=== PATIENT | female | born 1950 | race Caucasian/White ===

== ENCOUNTER → 2016-12-16 | Outpatient (CLI) | payer MEDICARE ==
[2016-08-27 09:09] VITALS: BP 134/61
[~2016-12-16] MED LIST: Aspirin PO; CETI10TA22 PO; CLON0.5T3 PO; CYAN10005 PO; CYCL10TA2 PO; DULO30CA2 PO; FLUT16SP NS; FLUT1DIS3 IH; FURO40TA4 PO; GABA-586 PO; HYDR200T PO; INSU100I16 SQ; INSU100I27 SQ; INSU100V13 SQ; LISI-338 PO; LISI10TA PO; METF10002 PO; MONT10TA9 PO; NAPR500T8 PO; NITR100C PO; OMEP40CA5 PO; PANT40TA3 PO; PHEN100T82 PO; POTA20TA4 PO; TIZA4TAB PO
--- NOTE | 2016-12-16 22:56 | PAIN ---
DATE OF SERVICE: 12/16/2016 DIAGNOSES: Lumbar radiculopathy with lumbar spinal stenosis, degenerative disk disease and post-lumbar laminectomy syndrome. HISTORY OF PRESENT ILLNESS: This is a 66-year-old female who returns for followup status post lumbar epidural steroid injection x 1. The patient reports approximately 50% improvement after the first injection with good pain relief in the low back and right lower extremity significantly reduced in the right leg. The patient reports she has been able to perform increased activity with greater ease and comfort feeling almost back to normal until yesterday, she picked up couch and moved it, also lifted her grandchild several times and climbed some steep stairs, which is causing increasing pain in her low back only on the right side in the lateral aspect of the lower lumbar distribution. The patient reports otherwise doing very well. No radiation into the leg at this point, it is an aching dull pain in the low back, rates it as a 4 on a scale of 10 at its worse, she has been sleeping well at night. No new motor or sensory deficits, no new bowel or bladder incontinence or other complaints. PHYSICAL EXAMINATION: VITAL SIGNS: Today, blood pressure is 152/70, pulse 87, respirations 18, temperature 97.9 degrees Fahrenheit, height is 5 feet 2 inches, weight is 191 pounds. GENERAL: The patient is awake, alert, oriented, appropriate, very pleasant demeanor. HEENT: Head shows normocephalic, atraumatic. Extraocular movements are intact, symmetrical. Oral cavity, mucous membranes are moist and pink. Dentition is intact. NECK: Shows anterior throat supple without palpable lymphadenopathy noted. Swallow reflex is symmetrical. The patient shows full rotation and motion of cervical spine without tenderness or difficulty. CHEST: Shows normal on inspection. Breath sounds are clear to auscultation bilaterally. HEART: Shows S1 and S2 clear. ABDOMEN: Obese, but soft, nontender, nondistended. No palpable organomegaly is noted. No rebound or guarding demonstrated. BACK: Shows spine grossly midline. Lumbar paraspinous musculature shows some moderate tenderness with palpation and a well-healed surgical scar once again diffusely tender mostly in the middle and lower distribution of paraspinous muscles, but only very mildly there is some mild tenderness over the posterior superior iliac spine and just medial to this on the right side only, but without significant trigger points. No radiation of pain. The patient shows full rotation and motion of lumbar spine, both laterally greater than 10 degrees right and left as well as extension greater than 10 degrees, forward flexion greater than 45 degrees without difficulty or pain reported. EXTREMITIES: Lower extremities show deep tendon reflexes 1+ in the patellar and tendo calcaneus tendons. Motor exam is strong with 5/5 dorsiflexion, extension, approximately 4/5 quadriceps and hamstring flexion on the right, but 5/5 on the left, but intact bilaterally. PLAN: Options were discussed with the patient. At this time, the patient's old chart was reviewed as her current medication regimen and updated. Current review of systems updated today as well. We will hold on any further injections by her request. She is doing much better and would like to continue some strengthening and stretching exercises at home. We encouraged her to do this as well and see how her progress maintains. Patient was given a prescription for Lidoderm patches as well as Medrol Dosepak with instructions, side effects to be aware of with each, was counseled as to activity level as well as exercise regimen at home and stretching regimen at home and follow up if pain begins to return more into the lower extremity or worse in the low back as it was previously. The patient understands and will follow up as needed. BRO TABARES MD DR: RDE/gagandeep JOB#: [id number] / [id number]
== END | disposition home or self-care (01) ==
LOC: PNCL 10:13
PROVIDERS: ATTEND Anesthesiology
DX: M51.16 Intervertebral disc disorders with radiculopathy, lumbar region (principal); M48.06 Spinal stenosis, lumbar region; M96.1 Postlaminectomy syndrome, not elsewhere classified
CPT/HCPCS: G0463

== ENCOUNTER → 2017-02-16 | Outpatient (CLI) | payer MEDICARE ==
[2016-08-27 09:09] VITALS: BP 134/61
[~2017-02-16] MED LIST changes: +IOHEXOL 180 MG/ML 10 ML VIAL. ONE; +methylPREDNISolone ACETATE 40 MG/ML VIAL. ONE; +methylPREDNISolone ACETATE 80 MG/ML VIAL. ONE
--- NOTE | 2017-02-16 09:52 | PAIN ---
DATE OF SERVICE: 02/16/2017 PROGRESS NOTE FOR PAIN CLINIC DIAGNOSES: Lumbar radiculopathy with lumbar spinal stenosis and lumbar degenerative disk disease with post-lumbar laminectomy syndrome. HISTORY OF PRESENT ILLNESS: The patient is a 66-year-old female who returns for followup status post lumbar epidural steroid injection x 1. The patient reports that she did well with this first injection, about 50% improvement and is doing very well. She was moving some furniture. The pain has begun to return now in the low back, bilateral lower extremities, mostly on the right side, but has a pressure feeling when she lies down, feels like there is a node on her low back and reports it has been worse with some rainy weather, which had recently reached a 9 on a scale of 10 across the low back into the right lower extremity over anterior medial thigh as well as the groin as well as the posterior gluteus and low back on the right side. The patient reports no new motor or sensory deficits, no new bowel or bladder incontinence or other complaints, but still significant pain as noted. PHYSICAL EXAMINATION: VITAL SIGNS: The patient's blood pressure 121/66, pulse 74, respirations 18, temperature 97.8 degrees Fahrenheit, height is 5 feet 2 inches, weighs 190 pounds. GENERAL: The patient is awake, alert, oriented, appropriate, very pleasant demeanor. HEENT: Head shows normocephalic, atraumatic. Extraocular movements are intact and symmetrical. Oral cavity, mucous membranes are moist and pink. Dentition is intact. NECK: Shows anterior throat supple without palpable lymphadenopathy noted. Swallow reflex is symmetrical. CHEST: Shows normal on inspection. Breath sounds are clear to auscultation bilaterally. HEART: Shows S1 and S2 clear. ABDOMEN: Soft, nontender, nondistended. No palpable organomegaly is noted. No rebound or guarding demonstrated. BACK: Shows spine grossly midline. Slight exaggeration of thoracic kyphosis, mild flattening of lumbar lordotic curvature, previously well-healed surgical scars noted. Lumbar paraspinous musculature shows some moderate tenderness and firm with palpation in the mid and low lumbar distribution bilaterally, but only diffusely without radiation. EXTREMITIES: Lower extremities show deep tendon reflexes at 1+ in the patellar and tendo calcaneus tendons. Motor exam is approximately 4 on a scale of 5 on the right and 5 out of 5 on the left with dorsiflexion and extension. Options were discussed with the patient. The patient's old chart was reviewed and her current medication regimen updated. Current review of systems updated today as well. We will proceed with a second lumbar epidural steroid injection today with fluoroscopic guidance. Risks were again discussed including, but not limited to bleeding, infection, possibility of epidural hematoma, subsequent neurologic compromise, dural puncture, headaches, spinal cord and/or nerve damage, side effects of steroid medication, and poor results regarding pain control. The patient understands and wishes to proceed. The patient will return to clinic in approximately 2 weeks for followup, was counseled on return appointment, activity level, and side effects to be aware of. DIAGNOSES: Lumbar radiculopathy, lumbar degenerative disk disease, spinal stenosis, and post-lumbar laminectomy syndrome. PROCEDURES: Lumbar epidural steroid injection in translaminar approach at the L3-L4 level using C-arm fluoroscopic guidance under sterile prep and drape using local anesthetic. MEDICATIONS INJECTED: 120 mg Depo-Medrol plus 10 mL of preservative-free normal saline and 2 mL of Isovue for contrast. CONDITION AT DISCHARGE: Stable. The patient tolerated procedure well, had no complications. BRO TABARES MD DR: RED/gagandeep JOB#: [id number] / [id number]
== END | disposition home or self-care (01) ==
LOC: PNCL 07:48
PROVIDERS: ATTEND Anesthesiology
DX: M51.16 Intervertebral disc disorders with radiculopathy, lumbar region (principal); M48.06 Spinal stenosis, lumbar region; M96.1 Postlaminectomy syndrome, not elsewhere classified; E11.9 Type 2 diabetes mellitus without complications; I10 Essential (primary) hypertension; J45.909 Unspecified asthma, uncomplicated; Z87.39 Personal history of other diseases of the musculoskeletal system and connective tissue; Z90.710 Acquired absence of both cervix and uterus; Z90.49 Acquired absence of other specified parts of digestive tract
CPT/HCPCS: 62323; J1030; J1040

== ENCOUNTER 2017-04-16 08:38 | Emergency (ER) | payer MEDICARE ==
[~2017-04-16] VITALS: Ht 157.5 cm; Wt 77.1 kg
[~2017-04-16 08:38] MED LIST changes: -IOHEXOL 180 MG/ML 10 ML VIAL. ONE; +METF-620 PO; -METF10002 PO; -methylPREDNISolone ACETATE 40 MG/ML VIAL. ONE; -methylPREDNISolone ACETATE 80 MG/ML VIAL. ONE
[2017-04-16 09:03] VITALS: BP 147/70
--- NOTE | 2017-04-16 09:24 | PHYS DOC ---
Past Medical History Past Medical History: Asthma, Depression, Diabetes-Type II, Sciatica Additional Past Medical Histor: CHORNIC BACK PAIN Past Surgical History: Appendectomy, Cholecystectomy, Hysterectomy, Tonsillectomy, Other Additional Past Surgical Histo: bladder sling, cataracts, BILATERAL CARPAL TUNNEL, JAXON IN NECK, BACK SX Alcohol Use: None Drug Use: None Adult General Chief Complaint Chief Complaint: LOWER BACK PAIN OR INJURY [facility] HPI Patient is a 66 year old female presents emergency department stating that she has chronic back pain. She states she takes tramadol at home for the pain and discomfort. She denies any trauma or injury to her back. She states she's had increased pain since yesterday. She states she took her tramadol last night and her naproxen and was unable to sleep. She is complaining of bilateral lower back pain and discomfort. She does state the pain radiates down into her right thigh. Patient has been able to ambulate without difficulty. She denies any numbness or tingling into her lower extremities. She denies any urinary symptoms. Review of Systems Review of Systems Constitutional: Denies fever or chills [] Eyes: Denies change in visual acuity, redness, or eye pain [] HENT: Denies nasal congestion or sore throat [] Respiratory: Denies cough or shortness of breath [] Cardiovascular: No additional information not addressed in HPI [] GI: Denies abdominal pain, nausea, vomiting, bloody stools or diarrhea [] : Denies dysuria or hematuria [] Musculoskeletal: lower back pain denies joint pain [] Integument: Denies rash or skin lesions [] Neurologic: Denies headache, focal weakness or sensory changes [] Endocrine: Denies polyuria or polydipsia [] Allergies Allergies Allergies Coded Allergies Type Severity Reaction Last Updated Verified Iodinated Contrast Media - Oral and Allergy Intermediate 08/27/16 Yes Sulfa (Sulfonamide Antibiotics) Allergy Intermediate 04/26/15 No cephalexin Allergy Intermediate Nausea and Vomiting 11/27/16 Yes morphine Allergy Intermediate 04/26/15 No acetaminophen Allergy Unknown Itching 11/27/16 Yes hydrocodone Allergy Unknown Itching 11/27/16 Yes amoxicillin Adverse Reaction Mild Nausea and Vomiting 04/27/15 No clavulanic acid Adverse Reaction Mild Nausea and Vomiting 04/27/15 No Physical Exam Physical Exam Constitutional: Well developed, well nourished, no acute distress, non-toxic appearance. [] HENT: Normocephalic, atraumatic, bilateral external ears normal, oropharynx moist, no oral exudates, nose normal. [] Eyes: PERRLA, EOMI, conjunctiva normal, no discharge. [] Neck: Normal range of motion, no tenderness, supple, no stridor. [] Cardiovascular:Heart rate regular rhythm, no murmur [] Lungs & Thorax: Bilateral breath sounds clear to auscultation [] Abdomen: Bowel sounds normal, soft, no tenderness, no masses, no pulsatile masses. [] Skin: Warm, dry, no erythema, no rash. [] Back: Bilateral lower back tenderness. No tenderness noted on the lumbar spine, no step-offs, no deformity, no crepitus noted Extremities: No tenderness, no cyanosis, no clubbing, ROM intact, no edema. [] Neurologic: Alert and oriented X 3, normal motor function, normal sensory function, no focal deficits noted. [] Psychologic: Affect normal, judgement normal, mood normal. [] Current Patient Data Vital Signs Vital Signs Date Time Temp Pulse Resp B/P (MAP) Pulse Ox O2 Delivery O2 Flow Rate FiO2 04/16/17 09:03 98.1 91 20 98 Room Air 98.1 EKG EKG [] Radiology/Procedures Radiology/Procedures [] Course & Med Decision Making Course & Med Decision Making Pertinent Labs and Imaging studies reviewed. (See chart for details) Patient states that her friend brought her here to the emergency department today. Patient will be provided with Percocet here in the emergency Department with recommendations to follow-up with her primary care physician or her back doctor for further pain management. Patient states she does have tramadol at home in which she can take for pain and discomfort. Patient will be discharged home in stable condition signs and symptoms to return back to emergency department as been provided. [] Dragon Disclaimer Dragon Disclaimer This electronic medical record was generated, in whole or in part, using a voice recognition dictation system. Departure Departure Impression: Primary Impression: Chronic back pain Disposition: 01 HOME, SELF-CARE Condition: STABLE Referrals: EMELINA HERCULES MD (PCP) Patient Instructions: Back Pain, Adult, [id number] Additional Instructions: You have been treated for your back pain. You have been given Percocet here in the emergency department for pain. Do NOT drive or do anything that requires you to be alert and oriented today as this medication will cause drowsiness. Ice packs to the area of discomfort on 20 minutes and off 20 minutes several times a day If you cannot tolerate ice you may use warm moist heat Continue your home medications for pain. Followup with your primary care provider or back doctor for further pain management. Followup with your primary care provider in 3-5 days Return to emergency department as needed for signs and symptoms that become worse. LINN CALLAWAY APRN April 16, 2017 09:24
[2017-04-16] MEDS ORDERED: oxyCODONE/APAP 5/325 1 TAB TABLET PO ONE (09:30)
== END 2017-04-16 09:38 | disposition home or self-care (01) ==
LOC: ER 08:38
DX: G89.29 Other chronic pain (principal); M54.5 Low back pain; J45.909 Unspecified asthma, uncomplicated; F32.9 Major depressive disorder, single episode, unspecified; E11.9 Type 2 diabetes mellitus without complications; M54.30 Sciatica, unspecified side; Z90.49 Acquired absence of other specified parts of digestive tract; Z90.710 Acquired absence of both cervix and uterus; G56.03 Carpal tunnel syndrome, bilateral upper limbs; Z88.5 Allergy status to narcotic agent; Z88.2 Allergy status to sulfonamides; Z88.1 Allergy status to other antibiotic agents; Z91.041 Radiographic dye allergy status
CPT/HCPCS: 99282

== ENCOUNTER → 2017-04-29 | Outpatient (CLI) | payer MEDICARE ==
[~2017-04-29] VITALS: Ht 154.9 cm; Wt 77.1 kg
[~2017-04-29] MED LIST changes: +IOHEXOL 180 MG/ML 10 ML VIAL. IT ONE; +LIDOCAINE 1% / SOD BICARB 8.4% 20 ML VIAL. IJ ONE
[2017-04-29 12:28] VITALS: BP 149/68
--- NOTE | 2017-04-29 14:38 | RAD ---
Indication chronic back pain Lumbar myelography was explained to the patient. The risks of infection and bleeding were outlined. The possibility of worsening of symptoms was discussed. The possibility of a postprocedure headache necessitating placement of a patch was also discussed. The very small possibility of a seizure was communicated to the patient. The patient after the risks associated with the procedure and wished proceed. The skin was prepped and draped in the routine fashion. Local anesthesia was accomplished with 1% lidocaine. Initially an attempt was made using a midline approach to gain access into the subarachnoid space at L4. This was unsuccessful likely secondary to scar. Subsequently an attempt was made to access the subarachnoid space using a left para midline approach at L3-4. This too was unsuccessful. After these 2 attempts the patient was having some and a break, process, was taken. The patient was then re-prepped with a new tray and draped. Again local anesthesia was accomplished with 1% lidocaine. Using a 20-gauge needle in the midline approach the subarachnoid space was punctured at L2-3. Clear CSF was encountered. 11 cc of Omnipaque 180 was injected. Multiple films were obtained. The patient tolerated the procedure unremarkably. Following the myelogram, post myelogram CT was performed. Axial images were obtained from T11 through the and sacrum reformatted in the coronal and sagittal planes. Disc cuts were obtained at T12-L1, L1-2, L2-3, L3-4 and L4-5. Following the CT I evaluated the patient and she indicated that she was back to her baseline state and having no new issues with her back. 18 spot fluoroscopic images were obtained. Fluoroscopy time associated with the study was 8.1 minutes. Following the myelogram post mammogram CT the patient was watched for approximately 1 hour per protocol and then discharged with appropriate instructions. Prior to the administration of contrast the patient was premedicated with steroids and Benadryl. No adverse effects were seen associated with the intrathecal contrast administration Myelogram findings. There is no determination of the contrast column however there is marked narrowing of the contrast column at L3-4. Disc bulge is seen at L2-3. Spinal fixation cage is noted extending from L4 to S1. Post mammogram CT: Findings. The visualized lung bases appear clear. A significant finding is not seen in the visualized abdomen or retroperitoneum. Spinal fixation cage is noted extending from L4 through S1. The conus appears normal. L1-2 appears unremarkable. At L2-3 there is disc protrusion/herniation to the left of midline impinging on the thecal sac with some associated left foraminal encroachment. There is no significant right foraminal encroachment at L2-3. At L3-4 there is severe spinal stenosis with significant left neural foraminal encroachment and mild right. The etiology for the spinal stenosis is probably multifactorial. Factors contributing to the spinal stenosis may include disc bulging and scarring. There is some ligamentum flavum hypertrophy at this level. At L4-5 there is no significant neural foraminal encroachment. The canal is widely patent. At L5-S1 the thecal sac is widely patent and there is no significant neural foraminal encroachment. IMPRESSION: Lumbar myelogram and post myelogram CT demonstrating spinal fixation extending from L4 through S1. Marked spinal stenosis with associated left greater than right neural foraminal encroachment at L3-4 Left-sided disc protrusion/herniation at L2-3 with associated left neural foraminal encroachment PQRS Compliance Statement: One or more of the following individualized dose reduction techniques were utilized for this examination: 1. Automated exposure control 2. Adjustment of the mA and/or kV according to patient size 3. Use of iterative reconstruction technique
[2017-04-29 14:54] VITALS: BP 130/61
== END | disposition home or self-care (01) ==
LOC: RAD 12:00
PROVIDERS: ATTEND Neurological Surgery
DX: M48.06 Spinal stenosis, lumbar region (principal)
CPT/HCPCS: 72132; 72265

== ENCOUNTER → 2017-05-18 | Outpatient (CLI) | payer MEDICARE ==
[2017-04-29 14:54] VITALS: BP 130/61
[~2017-05-18] MED LIST changes: -IOHEXOL 180 MG/ML 10 ML VIAL. IT ONE; -LIDOCAINE 1% / SOD BICARB 8.4% 20 ML VIAL. IJ ONE
--- NOTE | 2017-05-18 19:51 | KCIC ---
Bilateral digital screening mammograms: Reason for examination: Routine screening. Comparison is made to previous studies dated 12/21/2015 and 06/14/2010. The skin and nipples show no abnormalities. No abnormal axillary lymph nodes are seen. The breast parenchyma shows scattered fibroglandular density. (Breast density: Category B.) There are no dominant masses, suspicious calcifications or architectural distortions. Impression: No evidence of malignancy. Recommend routine screening. BI-RADS Category 2: Benign. "Our facility is accredited by the [employer] Mammography Program." This patient's information has been entered into a reminder system for the patient to be notified with the results of her examination and a target date for the next mammogram. Electronically signed by: Cleo Baca MD (05/18/2017 7:48 PM)
== END | disposition home or self-care (01) ==
LOC: KCIC MAMMO 15:00
PROVIDERS: ATTEND Internal Medicine
DX: Z12.31 Encounter for screening mammogram for malignant neoplasm of breast (principal)
CPT/HCPCS: G0202; 77067

== ENCOUNTER → 2017-06-09 | Outpatient (CLI) | payer MEDICARE ==
[2017-04-29 14:54] VITALS: BP 130/61
[~2017-06-09] MED LIST changes: +METF500T4 PO; +METH-38 PO; +NAPR500T3 PO; +SENN-37 PO; +TRAM-48 PO
--- NOTE | 2017-06-09 15:51 | EKG ---
[facility] [address] [place] [address] Test Date: 2017-06-09 Test Time: 15:53:47 Pat Name: EMILY MONTIEL Department: Room: Gender: F Machine Stitcher: AMANDA : 1950 Requested By: YAHIR LYNN Order Number: [id number] Reading MD: John Paul Gonzalez Measurements Intervals [place] Rate: 69 P: 90 OR: 212 QRS: 61 QRSD: 80 T: 73 QT: 418 QTc: 449 Interpretive Statements SINUS RHYTHM NORMAL ECG RI6.01 Compared to ECG 04/30/2015 07:14:55 No significant changes Electronically Signed On 06-10-2017 11:35:50 CDT by John Paul Gonzalez
[2017-06-09 15:58] LABS: BASO # 0.1 x10^3/uL (0.0-0.2); BASO % 1 % (0-3); EOS % 2 % (0-3); HEMATOCRIT 38.1 % (36.0-47.0); HEMOGLOBIN 12.6 g/dL (12.0-15.5); LYMPH # 2.9 x10^3/uL (1.0-4.8); LYMPH % 31 % (24-48); MEAN CORPUSCULAR HEMOGLOBIN 28 pg (25-35); MEAN CORPUSCULAR HGB CONC 33 g/dL (31-37); MEAN CORPUSCULAR VOLUME 86 fL (79-100); MONO % 8 % (0-9); NEUT % 58 % (31-73); PLATELET COUNT 193 x10^3/uL (140-400); RED BLOOD COUNT 4.44 x10^6/uL (3.50-5.40); RED CELL DISTRIBUTION WIDTH 14.3 % (11.5-14.5); WHITE BLOOD COUNT 9.2 x10^3/uL (4.0-11.0)
[2017-06-09 16:07] LABS: PROTHROMBIN TIME PATIENT 12.3 SEC (11.7-14.0)
[2017-06-09 16:15] LABS: ALBUMIN 4.1 g/dL (3.4-5.0); ALBUMIN/GLOBULIN RATIO 1.2 (1.0-1.7); CALCIUM 9.1 mg/dL (8.5-10.1); CREATININE 0.8 mg/dL (0.6-1.0); GFR 71.5; POTASSIUM 3.7 mmol/L (3.5-5.1); TOTAL BILIRUBIN 0.3 mg/dL (0.2-1.0); TOTAL PROTEIN 7.6 g/dL (6.4-8.2)
== END | disposition home or self-care (01) ==
LOC: SURGPAT 14:45
PROVIDERS: ATTEND Neurological Surgery
DX: Z01.818 Encounter for other preprocedural examination (principal); I10 Essential (primary) hypertension
CPT/HCPCS: 36415; 80053; 83036; 85027; 85610; 85730; 87641; 93005

== ENCOUNTER 2017-06-16 06:42 | Inpatient (IN) | payer MEDICARE ==
[~2017-06-16] VITALS: Ht 157.5 cm; Wt 86.2 kg
[2017-06-16] VITALS (11 sets, daily range): BP systolic 133–154; BP diastolic 70–85
[~2017-06-16 06:42] MED LIST changes: +BACITRACIN 50,000 UNIT in IV NORMAL SALINE 1000ML BAG 1,000 ML IRR ONE; -METH-38 PO; -SENN-37 PO; -TRAM-48 PO; +VANCOMYCIN 1GM IVPB FOR OMNI 250 ML IV PRN
[2017-06-16] MEDS ORDERED: ONDANSETRON PF 4 MG/2 ML VIAL. IV PRN ×2 (07:00→11:45)
[2017-06-16] MEDS ORDERED: LIDOCAINE 1% 1 ML SYRINGE. ID PRN (07:00)
[2017-06-16] MEDS ORDERED: PROCHLORPERAZINE 10 MG/2 ML VIAL. IV PRN (07:00)
[2017-06-16] MEDS ORDERED: fentaNYL PF VIAL 100 MCG/2 ML VIAL IV PRN ×2 (07:00→11:45)
[2017-06-16] MEDS ORDERED: IV RINGERS,LACTATED 1000ML 1,000 ML IV SCH (07:00)
[2017-06-16] MEDS ORDERED: PROPOFOL 20 ML IV ONE (07:02)
[2017-06-16] MEDS ORDERED: MINERAL OIL/PETROLATUM,WHITE OPHTH OINT 3.5GM TUBE. ONE (07:02)
[2017-06-16] MEDS ORDERED: DEXAMETHASONE SOD PHOS 20 MG/5 ML VIAL. ONE (07:02)
[2017-06-16] MEDS ORDERED: DESFLURANE > 120 MINUTES IH ONE (07:02)
[2017-06-16] MEDS ORDERED: MIDAZOLAM HCL/PF 2 MG/2 ML VIAL. ONE (07:02)
[2017-06-16] MEDS ORDERED: PROPOFOL 50 ML IV ONE ×2 (07:02→09:36)
[2017-06-16] MEDS ORDERED: ROCURONIUM 50 MG/5 ML VIAL. ONE (07:02)
[2017-06-16] MEDS ORDERED: 0.9 % SODIUM CHLORIDE 50 ML VIAL. IJ ONE ×2 (07:02→10:58)
[2017-06-16] MEDS ORDERED: REMIFENTANIL 2 MG VIAL. IV ONE (07:02)
[2017-06-16] MEDS ORDERED: LIDOCAINE 2% PF Vial for OR 5 ML VIAL. ONE ×2 (07:02→11:19)
[2017-06-16] MEDS ORDERED: fentaNYL PF VIAL 100 MCG/2 ML VIAL ONE (07:02)
[2017-06-16] MEDS ORDERED: ONDANSETRON PF 4 MG/2 ML VIAL. ONE (07:02)
[2017-06-16] MEDS ORDERED: BUPIVACAINE 0.5% 50 ML VIAL. ONE (07:18)
[2017-06-16] MEDS ORDERED: LIDOCAINE 1%/EPI 1:100,000 20 ML VIAL. ONE (07:18)
[2017-06-16] MEDS ORDERED: PHENYLEPHRINE 10 MG/ML VIAL. ONE (08:11)
[2017-06-16] MEDS ORDERED: GLYCOPYRROLATE 1 MG/5 ML VIAL. ONE (08:11)
[2017-06-16] MEDS ORDERED: HYDROCORTISONE SOD SUCC/PF 100 MG/2 ML VIAL. ONE (08:20)
[2017-06-16] MEDS ORDERED: SEVOFLURANE > 120 MINUTES. IH ONE (09:55)
--- NOTE | 2017-06-16 11:41 | PDOC ---
BRIEF OPERATIVE NOTE Date: Jun 16, 2017 Pre-Op Diagnosis lumbar stenosis, lumbar disk herniation, lumbar radiculopathy Post-Op Diagnosis same Procedure Performed bilateral laminectomy L3-4, left laminectomy L2-3 with discectomy Surgeon Mike Cyanide Pot Hardener none Anesthesiologist Ritchie Anesthesia Type: General Blood Loss 200mL Specimens Obtained disc and decompression Findings prominent stenosis, scar tissue from prior adjacent lumbar surgery Complications none apparent OPerative Note neuromonitoring remained at least baseline throughout the procedure YAHIR LYNN MD Jun 16, 2017 11:41
[2017-06-16] MEDS ORDERED: NALOXONE 0.4 MG/ML VIAL. IV PRN (11:45)
[2017-06-16] MEDS ORDERED: oxyCODONE IR 5 MG TABLET PO PRN (11:45)
[2017-06-16] MEDS ORDERED: MAGNESIUM HYDROXIDE 2,400 MG/30 ML ORAL.SUSP. PO PRN (11:45)
[2017-06-16] MEDS ORDERED: 0.9 % SODIUM CHLORIDE 10 ML DISP.SYRIN. IV PRN (11:45)
[2017-06-16] MEDS ORDERED: CALCIUM CARBONATE 500 MG TAB.CHEW PO PRN (11:45)
[2017-06-16] MEDS ORDERED: diphenhydrAMINE 50 MG/ML VIAL IV PRN (11:45)
[2017-06-16] MEDS ORDERED: diphenhydrAMINE HCL 25 MG CAPSULE PO PRN (11:45)
[2017-06-16] MEDS ORDERED: ZOLPIDEM 5 MG TABLET. PO PRN (11:45)
[2017-06-16] MEDS ORDERED: MAG HYDROX/ALUMINUM HYD/SIMETH 30 ML ORAL.SUSP PO PRN (11:45)
[2017-06-16] MEDS: fentaNYL PF VIAL 100 MCG/2 ML VIAL IV PRN ×4 (12:05→20:55)
[2017-06-16] MEDS ORDERED: MEPERIDINE PF 25 MG/ML VIAL. IV PRN (12:45)
[2017-06-16] MEDS: oxyCODONE IR 5 MG TABLET PO PRN ×2 (14:11→18:16)
[2017-06-16 14:28] LABS: HEMATOCRIT 37.4 % (36.0-47.0); HEMOGLOBIN 12.2 g/dL (12.0-15.5); RED BLOOD COUNT 4.32 x10^6/uL (3.50-5.40); RED CELL DISTRIBUTION WIDTH 14.6 % (11.5-14.5); WHITE BLOOD COUNT 10.5 x10^3/uL (4.0-11.0)
[2017-06-16] MEDS: METHOCARBAMOL 750 MG TABLET PO SCH ×2 (14:48→20:41)
[2017-06-16] MEDS: FERROUS SULFATE 325 MG TABLET. PO SCH (16:26)
[2017-06-16] MEDS: CALCIUM CARB/VIT D3 500/200 TABLET. PO SCH (16:26)
--- NOTE | 2017-06-16 18:22 | OP ---
DATE OF SURGERY: 06/16/2017 SURGEON: Rangel Lynn M.D. [employer] PRODUCTION: None. PREOPERATIVE DIAGNOSES: 1. Lumbar stenosis. 2. Lumbar radiculopathy. 3. Lumbar disk herniation. POSTOPERATIVE DIAGNOSES: 1. Lumbar stenosis. 2. Lumbar radiculopathy. 3. Lumbar disk herniation. PROCEDURES: Bilateral laminectomy of lumbar 3-4 with a left laminectomy at lumbar 2-3 with discectomy. ANESTHESIA: General. COMPLICATIONS: None intraprocedurally. INDICATIONS FOR THE PROCEDURE: The patient is a 66-year-old female who has had a prior lumbar surgery with fusion. She has adjacent level stenosis just cephalad to the prior fusion construct with concordant radiculopathy. There is also a left-sided disk herniation at lumbar 2-3 in the left lateral recess which correlates to her symptoms well. She has been refractory to multiple nonsurgical treatments. Please refer to the patient's chart for additional details. DESCRIPTION OF PROCEDURE: After informed consent was obtained, the patient was brought into the operating room. She was placed under general anesthesia, was placed in prone position on the Judson frame. All pressure points were checked and padded appropriately. Neuro monitoring was instituted and baseline potentials were obtained. The lumbar region was prepped and draped in usual sterile fashion. The patient had a previous midline lumbar incision. Fluoroscopy was utilized to localize the appropriate portion of this incision to reopen and possibly extend over the region of lumbar 2-3 and 4. The superior aspect of the prior vertical incision was opened with a 10 blade scalpel and was extended slightly in a cranial direction to provide exposure to the lumbar 2-3 region. Monopolar electrocautery was utilized to dissect the avascular midline spinous processes of lumbar 2-3 and lumbar 3-4 and bilaterally across the lamina at lumbar 3-4 and leftward across the lamina at lumbar 2-3. The levels were localized/verified with fluoroscopy prior to the initiation of decompression. Bilateral laminectomy was performed at lumbar 3-4. This was performed with a Leksell as well as Kerrison rongeur and a pneumatic drill. The underlying ligament was exposed and gently dissected free from the thecal sac and removed with a Kerrison rongeur. The lateral recesses were decompressed bilaterally at this location. Significant hypertrophied ligament and scar tissue was encountered. This was gently removed from the thecal sac. Upon completion of this, the thecal sac was noted to be very well decompressed. This was verified with direct visualization as well as gentle palpation with a Elmore. A right hemilaminectomy was performed at the inferior aspect of lumber 2 across the lumbar 2-3 junction and the underlying ligament was subsequently removed with a Kerrison rongeur. The neural elements were gently retracted medially and the disk space at lumbar 2-3 was exposed. Annulotomy was performed with an 11 blade scalpel and disk material was removed in a piecemeal fashion from posterolaterally with a pituitary rongeur. Additional disk material was gently teased posterolaterally with a blunt nerve hook and removed with a pituitary rongeur. Upon completion of this, the adjacent neural elements were noted to be very well decompressed. This was verified with direct visualization as well as gentle palpation with a Elmore and a blunt nerve hook. Upon completion of these things, the wound was generously irrigated with antibiotic irrigation. Pristine hemostasis was achieved with FloSeal, cottonoids and some use of bipolar electrocautery. The muscles and fascia were then reapproximated with 0 Vicryl in a simple interrupted fashion. The subcutaneous tissues were reapproximated with 2-0 Vicryl in interrupted inverted fashion and the skin was reapproximated with 4-0 Vicryl in a running subcuticular fashion. Mastisol and Steri-Strips were applied and the wound was dressed with Telfa and Tegaderm. Neuro monitoring potentials remained at least at baseline throughout the duration of the procedure. All needle and sponge counts were correct x 2. The patient was subsequently extubated in the operating room and taken to recovery in stable condition. There were no intraprocedural complications apparent. RANGEL LYNN MD DR: RAY/gagandeep JOB#: [id number] / [id number] RICHARD
[2017-06-16] MEDS: SENNOSIDES/DOCUSATE 8.6/50MG TABLET. PO SCH (20:41)
[2017-06-16] MEDS: DOCUSATE SODIUM 100 MG CAPSULE. PO SCH (20:41)
[2017-06-16] MEDS: clonazePAM 0.5 MG TABLET PO SCH (20:41)
[2017-06-16] MEDS ORDERED: DULoxetine HCL 30 MG CAPSULE.DR PO SCH (21:00)
[2017-06-16] MEDS ORDERED: MONTELUKAST SODIUM 10 MG TABLET. PO SCH (21:00)
[2017-06-16] MEDS ORDERED: traMADol 50 MG TABLET PO PRN (23:30)
[2017-06-16] MEDS: traMADol 50 MG TABLET PO PRN (23:39)
[2017-06-17 02:29] VITALS: BP 113/61
[2017-06-17] MEDS: traMADol 50 MG TABLET PO PRN ×2 (04:46→09:23)
--- NOTE | 2017-06-17 06:20 | ACF ---
Admission Forms Criteria PAIN MANAGEMENT GR Clinical Indications for Admission to Inpatient Care (Place 'X' for any and all applicable criteria): Hospital admission is needed for appropriate care of the patient because of 1 or more of the following are present (1)(2)(3)(4)(5): [ ]I. Severe pain requiring acute inpatient management as indicated by 1 or more of the following (2)(5)(10): [ ]a) Continuous or frequent (eg, every 2 to 4 hours) parenteral analgesics required [A] [ ]b) Necessity (ie, alternative approaches not effective) for analgesic regimen that can only be performed or initiated in inpatient setting [X]II. Pain causing debilitation to the point of inability to function or be supported at any other level of care [ ]III. Severe side effects from pain medications as indicated by ANY ONE of the following (12)(13)(14)(15): [ ]a) Uncontrollable seizures [ ]b) Cardiac arrhythmias of immediate concern [ ]c) Dehydration that is severe or persistent [ ]d) Vomiting that is severe or persistent [ ]e) Altered mental status that is severe or persistent [ ]f) Obstipation with inadequate GI function to maintain nutrition The original [employer] content created by [employer] has been revised. The portions of the content which have been revised are identified through the use of italic text or in bold, and [facility] [employer] has neither reviewed nor approved the modified material. All other unmodified content is copyright [employer]. Please see references footnoted in the original [employer] edition 2016 Admission Criteria Met?: Yes MORALES CALL Jun 17, 2017 06:20
[2017-06-17 06:40] VITALS: BP 124/62
[2017-06-17] MEDS ORDERED: PANTOPRAZOLE 40 MG TABLET.DR. PO SCH (07:30)
[2017-06-17] MEDS ORDERED: metFORMIN 500 MG TABLET PO SCH (08:00)
[2017-06-17] MEDS ORDERED: INSULN ASP PRT/INSULIN ASPART 300 UNITS/3 ML INSULN.PEN. SQ SCH ×2 (08:00→17:00)
[2017-06-17] MEDS: clonazePAM 0.5 MG TABLET PO SCH (08:27)
[2017-06-17] MEDS: DOCUSATE SODIUM 100 MG CAPSULE. PO SCH (08:27)
[2017-06-17] MEDS: CALCIUM CARB/VIT D3 500/200 TABLET. PO SCH (08:27)
[2017-06-17] MEDS: METHOCARBAMOL 750 MG TABLET PO SCH (08:27)
[2017-06-17] MEDS: SENNOSIDES/DOCUSATE 8.6/50MG TABLET. PO SCH (08:27)
[2017-06-17] MEDS: FERROUS SULFATE 325 MG TABLET. PO SCH (08:27)
[2017-06-17] MEDS ORDERED: MULTIVITAMIN with MINERAL TABLET. PO SCH (09:00)
[2017-06-17] MEDS ORDERED: FUROSEMIDE 40 MG TABLET. PO SCH (09:00)
[2017-06-17] MEDS ORDERED: LISINOPRIL 10 MG TABLET PO SCH (09:00)
--- NOTE | 2017-06-17 11:05 | PDOC ---
SUBJECTIVE Subjective Reports resolution of leg pain and numbness. Has ambulated with PT. Had itching with oxycodone. Stated that can tolerate ultram better so switched. Some incisional pain that appears reasonably controlled with present regimen. OBJECTIVE Vital Signs Vital Signs Date Time Temp Pulse Resp B/P (MAP) Pulse Ox O2 Delivery O2 Flow Rate FiO2 06/17/17 09:23 Room Air 06/17/17 08:27 94 150/73 06/17/17 08:10 Room Air 06/17/17 06:40 97.3 92 124/62 (82) 95 Room Air 97.3 06/17/17 05:41 15 Room Air 06/17/17 04:46 18 Room Air 06/17/17 02:29 97.3 89 16 113/61 (78) 98 Room Air 97.3 06/16/17 23:39 18 99 Room Air 06/16/17 23:09 97.5 95 18 133/73 (93) 99 Room Air 97.5 06/16/17 21:27 16 Room Air 06/16/17 20:55 18 96 Room Air 06/16/17 20:00 Room Air 06/16/17 19:20 18 96 Room Air 06/16/17 18:16 Room Air 06/16/17 18:15 97.6 85 18 138/85 (102) 96 Room Air 97.6 06/16/17 17:15 98.0 99 20 149/83 (105) 97 Room Air 98.0 06/16/17 16:45 147/80 (102) 06/16/17 16:15 97.6 100 18 140/71 (94) 97 Room Air 97.6 06/16/17 15:45 139/80 (99) 06/16/17 15:15 144/73 (96) 06/16/17 14:15 98.0 103 18 150/70 (96) 95 Room Air 98.0 06/16/17 14:00 142/71 (94) 06/16/17 14:00 Room Air 06/16/17 13:45 139/77 (97) 06/16/17 13:30 97.3 99 20 144/74 (97) 96 Nasal Cannula 2.0 97.3 06/16/17 13:30 104 154/77 (102) Room Air 06/16/17 13:14 100 12 130/70 99 Nasal Cannula 2 06/16/17 12:59 100 14 119/60 98 Nasal Cannula 2 06/16/17 12:58 Nasal Cannula 2 06/16/17 12:45 101 20 142/63 95 Nasal Cannula 2 06/16/17 12:42 20 92 Room Air 06/16/17 12:30 118 20 118/49 96 Room Air 06/16/17 12:30 102 20 118/49 96 Room Air 06/16/17 12:15 99 06/16/17 12:14 104 20 159/66 94 Room Air 06/16/17 12:05 20 100 Simple Mask 10.0 06/16/17 11:59 108 14 148/52 100 Simple Mask 10 06/16/17 11:44 Mask 10 06/16/17 11:44 98.4 117 12 157/73 98 Simple Mask 10 98.4 I & O Intake and Output 06/17/17 06:59 Intake Total 4110 ml Output Total 3350 ml Balance 760 ml Intake Oral 2760 ml IV Total 1350 ml Output Urine Total 3150 ml Estimated Blood Loss 200 ml PHYSICAL EXAM Physical Exam AAOx4, NAD, SANTANA 5/5, sensation intact LT, reinforced dressing flat, c/d/i ASSESSMENT/PLAN Assessment/Plan POD 1 L3-4 bilateral laminectomy with left L2-3 laminectomy and discectomy -has seen PT -appears to be recovering well thus far -d/c home today if continues to do well Problems: COMMENT Lab Laboratory Tests Test 06/16/17 11:51 06/16/17 14:10 06/16/17 16:43 06/17/17 07:20 Glucose (Fingerstick) 120 mg/dL (70-99) 186 mg/dL (70-99) 137 mg/dL (70-99) White Blood Count 10.5 x10^3/uL (4.0-11.0) Red Blood Count 4.32 x10^6/uL (3.50-5.40) Hemoglobin 12.2 g/dL (12.0-15.5) Hematocrit 37.4 % (36.0-47.0) Mean Corpuscular Volume 87 fL (79-100) Mean Corpuscular Hemoglobin 28 pg (25-35) Mean Corpuscular Hemoglobin Concent 33 g/dL (31-37) Red Cell Distribution Width 14.6 % (11.5-14.5) Platelet Count 199 x10^3/uL (140-400) YAHIR LYNN MD Jun 17, 2017 11:05
[2017-06-17 11:15] VITALS: BP 146/73
[2017-06-17] MEDS ORDERED: METH-38 PO (11:29)
[2017-06-17] MEDS ORDERED: SENN-37 PO (11:29)
[2017-06-17] MEDS ORDERED: TRAM-48 PO (11:30)
--- NOTE | 2017-06-17 17:31 | PATHOLOGY ---
PATHOLOGY REPORT * * * * * * * * FINAL DIAGNOSIS: Segments of fibrocartilaginous, fibroadipose, and skeletal muscle tissue and bone, lumbar decompression and disc: - Degenerative changes of fibrocartilaginous tissue. COMMENT: There is no evidence of an acute inflammatory process or malignancy. (JPM:mgr; 06/17/2017) REPORT ELECTRONICALLY SIGNED BY: Temo Nino M.D. DATE/TIME: 06/17/2017 17:31 * * * * * * * * GROSS PATHOLOGY: Received in formalin labeled "Emily Tan, lumbar decompression and disc" are multiple segments of saenz, rubbery, and gritty tissue admixed with bone. The specimen measures 3.8 x 2.5 x 1.6 cm in aggregate dimensions. The tissue is submitted representatively in cassette A1, following decalcification. (JPM; 06/16/17) INITIAL CPT CODE(S): A; 34686, 10591 Professional services performed [place] [facility] [place] [address] Technical services performed by [facility] at [address] [place] [address]. SPECIMEN(S) RECEIVED: A.Lumbar decompression and disc CLINICAL HISTORY: Lumbar stenosis PATIENT: EMILY TAN /AGE: 9 1950 (Age: 66) PATIENT #: [id number] ALT CASE #: SPECIMEN COLLECTION DATE: 06/16/2017 SPECIMEN RECEIVED DATE: 06/16/2017 [facility] - [address] [place] [address] - PHONE: [phone] * * * END OF REPORT * * *
== END 2017-06-17 12:50 | disposition home or self-care (01) | DRG 520 ==
LOC: SURG 06:42 → 4 SOUTHEST 12:00
PROVIDERS: ADMIT Neurological Surgery; ATTEND Neurological Surgery
PROC: 0SB20ZZ Excision of Lumbar Vertebral Disc, Open Approach (ICD-10-PCS; 2017-06-16)
PROC: 4A11X4G Monitoring of Peripheral Nervous Electrical Activity, Intraoperative, External Approach (ICD-10-PCS; 2017-06-16)
PROC: 00NY0ZZ Release Lumbar Spinal Cord, Open Approach (ICD-10-PCS; principal; 2017-06-16 08:30)
DX: M48.06 Spinal stenosis, lumbar region (principal); M51.16 Intervertebral disc disorders with radiculopathy, lumbar region; Z98.1 Arthrodesis status
CPT/HCPCS: 36415; 76000; 82962; 85027; 88304; 88311; J1100; J1720; J1815; J2001; J2175; J2250; J2405; J2704; J3010; J3370; J3490; J7030; Q0163

== ENCOUNTER → 2017-09-22 | Outpatient (CLI) | payer MEDICARE ==
[~2017-09-22] MED LIST changes: -BACITRACIN 50,000 UNIT in IV NORMAL SALINE 1000ML BAG 1,000 ML IRR ONE; +METH-38 PO; -NAPR500T3 PO; +NAPR500T4 PO; +SENN-37 PO; +TRAM-48 PO; -VANCOMYCIN 1GM IVPB FOR OMNI 250 ML IV PRN
--- NOTE | 2017-09-22 10:52 | RAD ---
Indication syncopal episode. Dizziness. Axial noncontrast images through the head were obtained and are compared to a study 4 years ago. The calvarium appears unremarkable. The visualized paranasal sinuses appear normal. There is no subdural or epidural hematoma. The ventricles and sulci are within normal limits. There is no mass or midline shift. No hemorrhage is seen. IMPRESSION: No acute intracranial finding seen PQRS Compliance Statement: One or more of the following individualized dose reduction techniques were utilized for this examination: 1. Automated exposure control 2. Adjustment of the mA and/or kV according to patient size 3. Use of iterative reconstruction technique
== END | disposition home or self-care (01) ==
LOC: CT 09:36
PROVIDERS: ATTEND Internal Medicine
DX: R55 Syncope and collapse (principal)
CPT/HCPCS: 70450

== ENCOUNTER → 2017-10-01 | Outpatient (CLI) | payer MEDICARE ==
--- NOTE | 2017-10-06 21:32 | EEG ---
DATE OF SERVICE: 10/01/2017 ELECTROENCEPHALOGRAM NUMBER: [id number]. OBJECTIVE: This is a 67-year-old female patient with history of syncopal versus seizure-like episodes. EEG was requested to help rule out seizure. METHODS: Twenty electrodes were applied according to the international 10-20 electrode placement system. EKG monitoring, hyperventilation, intermittent photic stimulation, monopolar and bipolar montages are routinely utilized. The record was obtained on a digital system with video monitoring. FINDINGS: 1. Background: The patient was recorded in the awake and drowsy states. No sleep state was recorded. The overall background amplitude is 5-15 microvolts. A posterior dominant rhythm of 8-12 Hz is observed. 2. Abnormalities: No specific epileptiform discharge or electrographic seizure is seen. No focal or diffuse slowing. Fast activity in the beta frequency is noted. 3. Activation: Hyperventilation was performed with good efforts and normal response. Intermittent photic stimulation was performed with photic driving. No specific epileptiform discharge or electrographic seizure induced by hyperventilation or intermittent photic stimulation. IMPRESSION: This electroencephalogram is a borderline study for the awake and drowsy states. No sleep state was recorded. The faster activity in the beta frequency noted. No focal, lateralizing, specific epileptiform discharge or electrographic seizure is seen. However, even a normal electroencephalogram does not rule out seizure. WILD SUMMERS MD DR: Concha JOB#: [id number] / [id number] RICHARD
== END | disposition home or self-care (01) ==
LOC: RT 07:50
PROVIDERS: ATTEND Psychiatry & Neurology Neurology
DX: F31.89 Other bipolar disorder (principal); R06.4 Hyperventilation; R55 Syncope and collapse; E11.9 Type 2 diabetes mellitus without complications
CPT/HCPCS: 95816

== ENCOUNTER → 2017-11-09 | Outpatient (CLI) | payer MEDICARE ==
--- NOTE | 2017-11-09 17:12 | KCIC ---
MRI Lumbar Spine without contrast History: Low back pain, previous surgeries, bilateral hip pain, burning sensation in recent months Technique: Multiplanar, multi sequential noncontrast MR imaging was performed of the lumbar spine. Comparison: October 08, 2016 Findings: Lumbar vertebral body stature is overall maintained although increased endplate irregularity superiorly and inferiorly of L3. There again has been posterolateral fusion with bilateral pedicle screws at L4-5, again interbody graft at this level. There has been progression of narrowing of the L2-3 and L3-4 intervertebral disc spaces, some variable endplate edema at these levels, no fluid in the intervertebral disc spaces. There is again osseous interbody fusion at L5-S1. AP alignment is overall adequate. Conus terminates at L1-2. There is increased nonspecific edema of the posterior paraspinous soft tissues and subcutaneous fat. There is mild lumbar levoscoliosis. L1-L2: Spinal canal and neural foramina are adequate. There is minimal facet degenerative change. L2-L3: There has been interval posterior decompression. There is new broad protrusion, more eccentric to the far left lateral recess. There is increased indentation upon the ventral thecal sac in the far left lateral recess with moderate to severe left lateral recess stenosis. There is iqws-mf-[id number] narrowing of the far right lateral recess. There is iond-xf-wwibggmo left and moderate right neural foramina compromise. There is facet degenerative change. L3-L4: There has been interval posterior decompression. There is again posterior bulge/protrusion and probable small extrusion extending above the intervertebral disc space overall somewhat less prominent. There is residual mild narrowing of the far lateral recesses greater on the left, central canal now adequate. There is fairly severe narrowing of the left neural foramen by disc osteophyte complex and facet, somewhat greater in interval. There is mild narrowing of the right neural foramen. L4-L5: There again has been posterior decompression. Spinal canal is overall adequate. Posterior margin of the interbody graft again protrudes posterior to the cortical surfaces of the L4 and L5 vertebral bodies by approximately 5 to 6 mm, fairly similar with mild indentation upon the ventral thecal sac in the left paracentral region. There is mild narrowing of the left neural foramen, right neural foramen overall adequate. L5-S1: Spinal canal and neural foramina are overall adequate. Impression: 1. Compared with the September 2016 exam, there has been interval posterior decompression at L3-4 and L2-3. There is new broad bulge/protrusion at the L2-3 level with increased narrowing of the far lateral recesses greater on the left. There is residual mild narrowing of the far lateral recesses greater on the left at L3-4 although previously much greater degree of spinal stenosis present at this level. Posterior margin of the interbody graft at L4-5 again protrudes posterior to the cortical surfaces of the L4 and L5 vertebral bodies with mild indentation upon the ventral thecal sac. There has been progression of L2-3 and L3-4 intervertebral disc space narrowing with new endplate edema at these levels likely reactive/degenerative in etiology, also increased endplate irregularity of L3. There is fairly severe narrowing of the left L3-4 neural foramen, lesser degree of gffk-ch-joxdgcom narrowing bilaterally at L2-3. Electronically signed by: Gamaliel Espinoza MD (11/09/2017 5:08 PM) [facility]
== END | disposition home or self-care (01) ==
LOC: KCIC MRI 16:09
PROVIDERS: ATTEND Neurological Surgery
DX: M48.061 Spinal stenosis, lumbar region without neurogenic claudication (principal)
CPT/HCPCS: 72148

== ENCOUNTER → 2017-11-10 | Outpatient (CLI) | payer MEDICARE ==
--- NOTE | 2017-11-10 10:15 | KCIC ---
2 views right and left hip and AP pelvis 11/10/2017 CLINICAL INDICATION: Bilateral hip pain. COMPARISON: None. FINDINGS: Lumbosacral spinal fixation with vertical rods with extension to the sacrum on the right. No acute fracture or traumatic malalignment of the pelvis or bilateral hips. Femoral heads are round without collapse. Joint spaces are maintained. No symphysis pubis diastases. Sacroiliac articulations are grossly maintained, however somewhat limited due to overlying bowel contents. IMPRESSION: No acute osseous abnormality. Electronically signed by: Quentin Caldera MD (11/10/2017 10:12 AM) [id number]
== END | disposition home or self-care (01) ==
LOC: KCIC 09:32
PROVIDERS: ATTEND Anesthesiology
DX: M16.0 Bilateral primary osteoarthritis of hip (principal); I10 Essential (primary) hypertension; F41.9 Anxiety disorder, unspecified; F32.9 Major depressive disorder, single episode, unspecified; E11.9 Type 2 diabetes mellitus without complications; F17.200 Nicotine dependence, unspecified, uncomplicated; D64.9 Anemia, unspecified; Z86.69 Personal history of other diseases of the nervous system and sense organs; Z98.41 Cataract extraction status, right eye; Z98.42 Cataract extraction status, left eye; Z90.49 Acquired absence of other specified parts of digestive tract; Z90.710 Acquired absence of both cervix and uterus; Z87.440 Personal history of urinary (tract) infections; Z87.39 Personal history of other diseases of the musculoskeletal system and connective tissue; Z86.39 Personal history of other endocrine, nutritional and metabolic disease; Z88.2 Allergy status to sulfonamides; Z88.8 Allergy status to other drugs, medicaments and biological substances; Z88.6 Allergy status to analgesic agent; Z88.1 Allergy status to other antibiotic agents; Z91.041 Radiographic dye allergy status
CPT/HCPCS: 73521; 99212

== ENCOUNTER → 2017-11-17 | Outpatient (CLI) | payer MEDICARE ==
[~2017-11-17] MED LIST changes: +IOHEXOL 180 MG/ML 10 ML VIAL. ONE; +methylPREDNISolone ACETATE 40 MG/ML VIAL. ONE; +methylPREDNISolone ACETATE 80 MG/ML VIAL. ONE
--- NOTE | 2017-11-17 08:27 | PAIN ---
DATE OF SERVICE: 11/17/2017 DIAGNOSES: Lumbar radiculopathy with lumbar spinal stenosis, lumbar degenerative disk disease and post-laminectomy syndrome. HISTORY OF PRESENT ILLNESS: The patient is a 67-year-old female who returns for followup status post initial evaluation and Medrol Dosepak, was about 50% better after the Dosepak with her hips as well as her low back. The patient reports the pain is returning slightly, but still fairly well controlled. The patient reports pain across the low back into the posterior gluteus, more on the left than the right, now radiating, constant, severe, unbearable, dull, sharp, aching, much better over the past few days, though she reports she had 0 pain about 3 days ago. Prior to that, about 50% improvement and now is about 50% improved. The patient reports her pain a 10 on a scale 10 at its worst, 9 on average, 8 at its least and is a 8 today. The patient reports no new motor or sensory deficits, no new bowel or bladder incontinence or other complaints. She was sleeping better after the Medrol Dosepak and does not awaken her from sleep currently. PHYSICAL EXAMINATION: VITAL SIGNS: The patient's blood pressure 133/79, pulse 83, respirations 18, temperature 98.1 degrees Fahrenheit. Height is 5 feet 2 inches, weighs 180 pounds. GENERAL: She is awake, alert, oriented, appropriate, very pleasant demeanor. HEENT: Head shows normocephalic, atraumatic. Extraocular muscles are intact and symmetrical. Oral cavity: Mucous membranes moist and pink. Dentition is intact. NECK: Shows anterior throat supple without palpable lymphadenopathy noted. Swallow reflex symmetrical. CHEST: Shows normal with inspection, with palpation shows moderate tenderness, but symmetrical paraspinous musculature Moderately diffuse well-healed surgical scars noted in the midline with some tattooing as well. The patient's lower extremities show deep tendon reflexes at 1+ in the patellar and tendo calcaneus tendons are equal. Motor exam is strong with 5/5 dorsiflexion, extension, quadriceps and hamstring flexion and equal as well bilaterally. The patient's peripheral pulses are 1+ posterior tibial. No peripheral edema is noted. Options were discussed with the patient. The patient's old chart was reviewed. Her current medication regimen updated. Current review of systems updated today as well. We will proceed with a lumbar epidural steroid injection today with fluoroscopic guidance. Risks were again discussed including, but not limited to bleeding, infection, possibility of epidural hematoma, subsequent neurological compromise, dural puncture, headaches, spinal cord and/or nerve damage, side effects of steroid medication and poor results regarding pain control. The patient understands and wished to proceed. The patient will return to clinic in approximately 2 weeks for followup. She was counseled on return appointment, activity level and side effects to be aware of. DIAGNOSES: Lumbar radiculopathy with lumbar spinal stenosis, degenerative disk disease and post-lumbar laminectomy syndrome. PROCEDURES: Lumbar epidural steroid injection, translaminar approach at the L2-L3 level using C-arm fluoroscopic guidance, under sterile prep and drape using local anesthetic. MEDICATION INJECTED: A total of 120 mg Depo-Medrol, plus 10 mL of preservative-free normal saline, 2 mL Isovue for contrast. CONDITION AT DISCHARGE: Stable. The patient tolerated procedure well, had no complications. BRO TABARES MD DR: RED/gagandeep JOB#: [id number] / [id number]
== END | disposition home or self-care (01) ==
LOC: PNCL 07:45
PROVIDERS: ATTEND Anesthesiology
DX: M51.16 Intervertebral disc disorders with radiculopathy, lumbar region (principal); M48.061 Spinal stenosis, lumbar region without neurogenic claudication; M96.1 Postlaminectomy syndrome, not elsewhere classified; J45.909 Unspecified asthma, uncomplicated; F41.9 Anxiety disorder, unspecified; F32.9 Major depressive disorder, single episode, unspecified; D64.9 Anemia, unspecified; Z86.69 Personal history of other diseases of the nervous system and sense organs; Z87.01 Personal history of pneumonia (recurrent); Z90.710 Acquired absence of both cervix and uterus; Z87.440 Personal history of urinary (tract) infections; Z90.49 Acquired absence of other specified parts of digestive tract; Z98.890 Other specified postprocedural states; Z87.39 Personal history of other diseases of the musculoskeletal system and connective tissue; Z98.41 Cataract extraction status, right eye; Z98.42 Cataract extraction status, left eye; Z88.2 Allergy status to sulfonamides; Z88.1 Allergy status to other antibiotic agents; Z91.041 Radiographic dye allergy status; Z86.39 Personal history of other endocrine, nutritional and metabolic disease
CPT/HCPCS: 62323; J1030; J1040

== ENCOUNTER → 2017-12-01 | Outpatient (CLI) | payer MEDICARE ==
[~2017-12-01] MED LIST changes: -Aspirin PO; -CETI10TA22 PO; -CLON0.5T3 PO; -CYAN10005 PO; -CYCL10TA2 PO; -DULO30CA2 PO; -FLUT16SP NS; -FLUT1DIS3 IH; -FURO40TA4 PO; -GABA-586 PO; -HYDR200T PO; -INSU100I16 SQ; -INSU100I27 SQ; -INSU100V13 SQ; +IOHEXOL 180 MG/ML 10 ML VIAL.; -IOHEXOL 180 MG/ML 10 ML VIAL. ONE; -LISI-338 PO; -LISI10TA PO; -METF-620 PO; -METF500T4 PO; -METH-38 PO; -MONT10TA9 PO; -NAPR500T4 PO; -NAPR500T8 PO; -NITR100C PO; -OMEP40CA5 PO; -PANT40TA3 PO; -PHEN100T82 PO; -POTA20TA4 PO; -SENN-37 PO; -TIZA4TAB PO; -TRAM-48 PO; +methylPREDNISolone ACETATE 40 MG/ML VIAL.; -methylPREDNISolone ACETATE 40 MG/ML VIAL. ONE; +methylPREDNISolone ACETATE 80 MG/ML VIAL.; -methylPREDNISolone ACETATE 80 MG/ML VIAL. ONE
== END | disposition home or self-care (01) ==
LOC: PNCL 07:38
DX: M51.16 Intervertebral disc disorders with radiculopathy, lumbar region (principal); M96.1 Postlaminectomy syndrome, not elsewhere classified; M48.061 Spinal stenosis, lumbar region without neurogenic claudication; F41.9 Anxiety disorder, unspecified; F32.9 Major depressive disorder, single episode, unspecified; F17.200 Nicotine dependence, unspecified, uncomplicated; D64.9 Anemia, unspecified; J45.909 Unspecified asthma, uncomplicated; Z88.2 Allergy status to sulfonamides; Z98.41 Cataract extraction status, right eye; Z98.42 Cataract extraction status, left eye; Z98.890 Other specified postprocedural states; Z86.69 Personal history of other diseases of the nervous system and sense organs; Z90.49 Acquired absence of other specified parts of digestive tract; Z90.710 Acquired absence of both cervix and uterus; Z88.6 Allergy status to analgesic agent; Z88.1 Allergy status to other antibiotic agents; Z91.041 Radiographic dye allergy status
CPT/HCPCS: 62323; J1030; J1040

== ENCOUNTER 2018-01-01 22:17 | Inpatient (IN) | payer MEDICARE ==
[2018-01-01 22:54] LABS: BILIRUBIN,URINE NEGATIVE (NEG); CLARITY,URINE CLOUDY; COLOR,URINE YELLOW; GLUCOSE,URINE NEGATIVE (NEG); NITRITE,URINE POSITIVE (NEG); PH,URINE 5.5; PROTEIN,URINE 100 mg/dL (NEG-TRACE); UROBILINOGEN,URINE 0.2 mg/dL (0.2 mg/dL)
[2018-01-01 23:10] LABS: BACTERIA,URINE MANY /HPF (0-FEW); RBC,URINE 20-40 /HPF (0-2); SQUAMOUS EPITHELIAL CELL,UR OCC /LPF; WBC,URINE TNTC /HPF (0-4)
[2018-01-01 23:11] LABS: INFLUENZA A PATIENT NEGATIVE (NEGATIVE); INFLUENZA B PATIENT NEGATIVE (NEGATIVE); OBC FLU VALID
[2018-01-01] MEDS: KETOROLAC 30 MG/ML INJ. IV (23:18)
[2018-01-01] MEDS: diazePAM 5 MG TABLET PO (23:19)
[2018-01-01] MEDS: oxyCODONE/APAP 5/325 1 TAB TABLET PO (23:19)
[2018-01-01] MEDS: IV NORMAL SALINE 1000ML BAG 1,000 ML IV (23:20)
[2018-01-01 23:38] LABS: BASO # 0.1 x10^3/uL (0.0-0.2); BASO % 0 % (0-3); EOS # 0.1 x10^3/uL (0.0-0.7); EOS % 1 % (0-3); HEMATOCRIT 35.9 % (36.0-47.0); HEMOGLOBIN 11.8 g/dL (12.0-15.5); LYMPH # 1.4 x10^3/uL (1.0-4.8); LYMPH % 9 % (24-48); MEAN CORPUSCULAR HEMOGLOBIN 28 pg (25-35); MEAN CORPUSCULAR HGB CONC 33 g/dL (31-37); MEAN CORPUSCULAR VOLUME 84 fL (79-100); MONO % 7 % (0-9); NEUT % 83 % (31-73); PLATELET COUNT 212 x10^3/uL (140-400); RED BLOOD COUNT 4.26 x10^6/uL (3.50-5.40); RED CELL DISTRIBUTION WIDTH 14.8 % (11.5-14.5); WHITE BLOOD COUNT 15.6 x10^3/uL (4.0-11.0)
[2018-01-01 23:42] LABS: ADD MAN DIFF? YES
[2018-01-01 23:49] LABS: ANION GAP 11 (6-14); BLOOD UREA NITROGEN 21 mg/dL (7-20); BUN/CREATININE RATIO 23 (6-20); CALCIUM 9.9 mg/dL (8.5-10.1); CARBON DIOXIDE 28 mmol/L (21-32); CHLORIDE 98 mmol/L (98-107); CREATININE 0.9 mg/dL (0.6-1.0); GFR 62.3; GLUCOSE 133 mg/dL (70-99); POTASSIUM 4.4 mmol/L (3.5-5.1); SODIUM 137 mmol/L (136-145)
[2018-01-01 23:50] LABS: C-REACTIVE PROTEIN 51.1 mg/L (0-3.3)
[2018-01-01 23:56] LABS: LACTIC ACID 2.5 mmol/L (0.4-2.0)
[2018-01-01 23:57] LABS: TROPONINI < 0.017 ng/mL (0.000-0.055)
[2018-01-02] MEDS ORDERED: fentaNYL PF VIAL 100 MCG/2 ML VIAL IV
[2018-01-02] MEDS ORDERED: levOFLOXacin PER PHARMACY. MC
[2018-01-02] MEDS ORDERED: ONDANSETRON PF 4 MG/2 ML VIAL. IV
[2018-01-02 00:03] LABS: ALBUMIN 3.5 g/dL (3.4-5.0); ALK PHOS 85 U/L (46-116); ALT (SGPT) 25 U/L (14-59); AST (SGOT) 20 U/L (15-37); CREATINE KINASE 90 U/L (26-192); MAGNESIUM 1.6 mg/dL (1.8-2.4); TOTAL BILIRUBIN 0.6 mg/dL (0.2-1.0); TOTAL PROTEIN 6.9 g/dL (6.4-8.2)
[2018-01-02 00:17] LABS: % BANDS 6 % (0-9); % LYMPHS 7 % (24-48); % MONOS 4 % (0-10); % SEGS 83 % (35-66)
[2018-01-02 00:18] LABS: PLT ESTIMATE ADEQUATE (ADEQUATE); TOXIC VACUOLATION SLIGHT
[2018-01-02] MEDS: MAGNESIUM OXIDE 400 MG TABLET PO (00:24)
[2018-01-02 01:23] LABS: SEDIMENTATION RATE 42 (0-25)
[2018-01-02 04:24] LABS: ADD MAN DIFF? NO
[2018-01-02 04:28] LABS: BASO # 0.1 x10^3/uL (0.0-0.2); BASO % 0 % (0-3); EOS # 0.1 x10^3/uL (0.0-0.7); EOS % 1 % (0-3); HEMOGLOBIN 10.7 g/dL (12.0-15.5); LYMPH # 1.4 x10^3/uL (1.0-4.8); LYMPH % 11 % (24-48); MEAN CORPUSCULAR HEMOGLOBIN 28 pg (25-35); MEAN CORPUSCULAR HGB CONC 33 g/dL (31-37); MEAN CORPUSCULAR VOLUME 85 fL (79-100); MONO # 0.8 x10^3/uL (0.0-1.1); MONO % 6 % (0-9); NEUT # 10.7 x10^3uL (1.8-7.7); NEUT % 82 % (31-73); PLATELET COUNT 176 x10^3/uL (140-400); RED BLOOD COUNT 3.91 x10^6/uL (3.50-5.40); WHITE BLOOD COUNT 13.1 x10^3/uL (4.0-11.0)
[2018-01-02 04:46] LABS: ANION GAP 11 (6-14); BLOOD UREA NITROGEN 19 mg/dL (7-20); CALCIUM 8.6 mg/dL (8.5-10.1); CARBON DIOXIDE 24 mmol/L (21-32); CHLORIDE 102 mmol/L (98-107); CREATININE 0.9 mg/dL (0.6-1.0); GFR 62.3; GLUCOSE 139 mg/dL (70-99); POTASSIUM 4.1 mmol/L (3.5-5.1); SODIUM 137 mmol/L (136-145)
[2018-01-02 04:54] LABS: LACTIC ACID 1.6 mmol/L (0.4-2.0)
[2018-01-02] MEDS: traMADol 50 MG TABLET PO ×3 (05:41→23:27)
[2018-01-02 09:26] LABS: POC GLUCOSE 115 mg/dL (70-99)
[2018-01-02] MEDS: fentaNYL PF VIAL 100 MCG/2 ML VIAL IV ×3 (10:23→23:28)
[2018-01-02] MEDS: methylPREDNISolone ACETATE 40 MG/ML VIAL. INJ (11:15)
[2018-01-02] MEDS: BUPIVACAINE MPF 0.25% 10 ML VIAL. IJ (11:15)
[2018-01-02] MEDS: ASCORBIC ACID 500 MG TABLET PO ×2 (11:30→20:25)
[2018-01-02] MEDS ORDERED: traMADol 50 MG TABLET PO (11:45)
[2018-01-02] MEDS ORDERED: DEXTROSE 50% 25 GM / 50ML DISP.SYRIN. IV (11:45)
[2018-01-02 11:50] LABS: POC GLUCOSE 117 mg/dL (70-99)
[2018-01-02] MEDS: INSULIN ASPART 300 UNITS/3 ML INSULN.PEN SQ ×2 (12:00→17:00)
[2018-01-02] MEDS: clonazePAM 0.5 MG TABLET PO ×2 (12:30→20:24)
[2018-01-02] MEDS: PANTOPRAZOLE 40 MG TABLET.DR. PO (12:30)
[2018-01-02] MEDS: HYDROXYCHLOROQUINE 200 MG TABLET PO ×2 (12:30→20:24)
[2018-01-02] MEDS: SENNOSIDES/DOCUSATE 8.6/50MG TABLET. PO ×2 (12:30→20:25)
[2018-01-02] MEDS: IV NORMAL SALINE 1000ML BAG 1,000 ML IV ×3 (12:34→22:27)
[2018-01-02] MEDS: ONDANSETRON PF 4 MG/2 ML VIAL. IV ×2 (12:34→22:24)
[2018-01-02 16:53] LABS: POC GLUCOSE 129 mg/dL (70-99)
[2018-01-02] MEDS: LISINOPRIL 10 MG TABLET PO (16:54)
[2018-01-02] MEDS: metFORMIN 500 MG TABLET PO (17:13)
[2018-01-02] MEDS: ENOXAPARIN 40 MG/0.4 ML SYRINGE. SQ (17:13)
[2018-01-02] MEDS: INSULN ASP PRT/INSULIN ASPART 300 UNITS/3 ML INSULN.PEN. SQ (17:18)
[2018-01-02] MEDS: LACTOBACILLUS RHAMNOSUS GG 1 CAPSULE. PO (20:23)
[2018-01-02] MEDS: DULoxetine HCL 30 MG CAPSULE.DR PO (20:24)
[2018-01-02] MEDS: MONTELUKAST SODIUM 10 MG TABLET. PO (20:24)
[2018-01-02 20:32] LABS: POC GLUCOSE 123 mg/dL (70-99)
[2018-01-03] MEDS: fentaNYL PF VIAL 100 MCG/2 ML VIAL IV ×3 (03:36→20:42)
[2018-01-03] MEDS: NAPROXEN 500 MG TABLET PO (03:36)
[2018-01-03 05:02] LABS: ADD MAN DIFF? NO
[2018-01-03 05:22] LABS: BASO % 0 % (0-3); EOS % 0 % (0-3); HEMATOCRIT 33.5 % (36.0-47.0); HEMOGLOBIN 10.9 g/dL (12.0-15.5); LYMPH # 0.8 x10^3/uL (1.0-4.8); LYMPH % 10 % (24-48); MEAN CORPUSCULAR HEMOGLOBIN 28 pg (25-35); MEAN CORPUSCULAR HGB CONC 33 g/dL (31-37); MEAN CORPUSCULAR VOLUME 87 fL (79-100); MONO # 0.6 x10^3/uL (0.0-1.1); MONO % 7 % (0-9); NEUT # 7.3 x10^3uL (1.8-7.7); NEUT % 84 % (31-73); PLATELET COUNT 161 x10^3/uL (140-400); RED BLOOD COUNT 3.87 x10^6/uL (3.50-5.40); RED CELL DISTRIBUTION WIDTH 15.2 % (11.5-14.5); WHITE BLOOD COUNT 8.7 x10^3/uL (4.0-11.0)
[2018-01-03 05:52] LABS: ANION GAP 13 (6-14); BLOOD UREA NITROGEN 13 mg/dL (7-20); CALCIUM 8.7 mg/dL (8.5-10.1); CARBON DIOXIDE 20 mmol/L (21-32); CHLORIDE 102 mmol/L (98-107); CHOLESTEROL 123 mg/dL (0-200); CHOLESTEROL/HDL RATIO 1.8; CREATININE 0.5 mg/dL (0.6-1.0); GFR 122.7; GLUCOSE 112 mg/dL (70-99); HDLC 69 mg/dL (40-60); LDLC 44 mg/dL (0-100); NON-HDL CHOLESTEROL 54 mg/dL (0-129); POTASSIUM 4.5 mmol/L (3.5-5.1); SODIUM 135 mmol/L (136-145); TRIGLYCERIDES 48 mg/dL (0-150); VLDLC 10 mg/dL (0-40)
[2018-01-03 06:24] LABS: THYROID STIM HORMONE (TSH) 0.981 uIU/mL (0.358-3.74)
[2018-01-03 07:59] LABS: POC GLUCOSE 108 mg/dL (70-99)
[2018-01-03] MEDS: INSULN ASP PRT/INSULIN ASPART 300 UNITS/3 ML INSULN.PEN. SQ ×2 (08:00→17:26)
[2018-01-03] MEDS: INSULIN ASPART 300 UNITS/3 ML INSULN.PEN SQ ×3 (08:00→17:26)
[2018-01-03] MEDS: metFORMIN 500 MG TABLET PO ×2 (08:31→17:13)
[2018-01-03] MEDS: LACTOBACILLUS RHAMNOSUS GG 1 CAPSULE. PO ×2 (08:32→20:42)
[2018-01-03] MEDS: clonazePAM 0.5 MG TABLET PO ×2 (08:32→20:43)
[2018-01-03] MEDS: traMADol 50 MG TABLET PO (08:32)
[2018-01-03] MEDS: ASCORBIC ACID 500 MG TABLET PO ×2 (08:32→20:43)
[2018-01-03] MEDS: SENNOSIDES/DOCUSATE 8.6/50MG TABLET. PO ×2 (08:32→20:43)
[2018-01-03] MEDS: HYDROXYCHLOROQUINE 200 MG TABLET PO ×2 (08:32→20:43)
[2018-01-03] MEDS: PANTOPRAZOLE 40 MG TABLET.DR. PO (08:32)
[2018-01-03] MEDS: LISINOPRIL 10 MG TABLET PO (08:33)
[2018-01-03] MEDS: IV NORMAL SALINE 1000ML BAG 1,000 ML IV (08:55)
[2018-01-03 11:38] LABS: POC GLUCOSE 147 mg/dL (70-99)
[2018-01-03 16:15] LABS: HEMOGLOBIN A1C 5.7 % (4.8-5.6)
[2018-01-03] MEDS: ENOXAPARIN 40 MG/0.4 ML SYRINGE. SQ (16:28)
[2018-01-03 16:46] LABS: POC GLUCOSE 151 mg/dL (70-99)
[2018-01-03] MEDS: MONTELUKAST SODIUM 10 MG TABLET. PO (20:43)
[2018-01-03] MEDS: DULoxetine HCL 30 MG CAPSULE.DR PO (20:43)
[2018-01-03 20:57] LABS: POC GLUCOSE 114 mg/dL (70-99)
[2018-01-03] MEDS: METHOCARBAMOL 750 MG TABLET PO (22:18)
[2018-01-04] MEDS: fentaNYL PF VIAL 100 MCG/2 ML VIAL IV ×3 (02:58→11:23)
[2018-01-04 07:36] LABS: POC GLUCOSE 120 mg/dL (70-99)
[2018-01-04] MEDS: INSULIN ASPART 300 UNITS/3 ML INSULN.PEN SQ ×2 (08:00→12:00)
[2018-01-04] MEDS: INSULN ASP PRT/INSULIN ASPART 300 UNITS/3 ML INSULN.PEN. SQ (08:00)
[2018-01-04] MEDS: PANTOPRAZOLE 40 MG TABLET.DR. PO (08:27)
[2018-01-04] MEDS: ASCORBIC ACID 500 MG TABLET PO (08:27)
[2018-01-04] MEDS: NAPROXEN 500 MG TABLET PO (08:28)
[2018-01-04] MEDS: metFORMIN 500 MG TABLET PO (08:28)
[2018-01-04] MEDS: HYDROXYCHLOROQUINE 200 MG TABLET PO (08:29)
[2018-01-04] MEDS: LACTOBACILLUS RHAMNOSUS GG 1 CAPSULE. PO (08:30)
[2018-01-04] MEDS: clonazePAM 0.5 MG TABLET PO (08:30)
[2018-01-04] MEDS: LISINOPRIL 10 MG TABLET PO (08:30)
[2018-01-04] MEDS: traMADol 50 MG TABLET PO (08:30)
[2018-01-04] MEDS: SENNOSIDES/DOCUSATE 8.6/50MG TABLET. PO (08:31)
[2018-01-04] MEDS ORDERED: methylPREDNISolone ACETATE 40 MG/ML VIAL. IM (10:00)
[2018-01-04 11:26] LABS: POC GLUCOSE 102 mg/dL (70-99)
[2018-01-04] MEDS: methylPREDNISolone ACETATE 40 MG/ML VIAL. INJ (13:00)
[2018-01-04] MEDS: BUPIVACAINE MPF 0.25% 10 ML VIAL. IJ (13:00)
== END 2018-01-04 14:21 | disposition home or self-care (01) | DRG 872 ==
LOC: 5 SOUTH 23:49 → ER 22:17
PROC: 3E0U3BZ Introduction of Anesthetic Agent into Joints, Percutaneous Approach (ICD-10-PCS; principal; 2018-01-01)
PROC: 3E0U33Z Introduction of Anti-inflammatory into Joints, Percutaneous Approach (ICD-10-PCS; 2018-01-01)
DX: A41.9 Sepsis, unspecified organism (principal); E83.42 Hypomagnesemia; N39.0 Urinary tract infection, site not specified; E11.9 Type 2 diabetes mellitus without complications; E66.9 Obesity, unspecified; E78.5 Hyperlipidemia, unspecified; F32.9 Major depressive disorder, single episode, unspecified; G89.29 Other chronic pain; I10 Essential (primary) hypertension; J45.909 Unspecified asthma, uncomplicated; K21.9 Gastro-esophageal reflux disease without esophagitis; M06.9 Rheumatoid arthritis, unspecified; M47.816 Spondylosis without myelopathy or radiculopathy, lumbar region; M54.17 Radiculopathy, lumbosacral region; M54.40 Lumbago with sciatica, unspecified side; M70.62 Trochanteric bursitis, left hip; M77.9 Enthesopathy, unspecified; F41.9 Anxiety disorder, unspecified; M79.7 Fibromyalgia; N31.9 Neuromuscular dysfunction of bladder, unspecified; Z79.4 Long term (current) use of insulin; Z80.0 Family history of malignant neoplasm of digestive organs; Z82.0 Family history of epilepsy and other diseases of the nervous system; Z82.49 Family history of ischemic heart disease and other diseases of the circulatory system; Z87.440 Personal history of urinary (tract) infections; Z90.49 Acquired absence of other specified parts of digestive tract; Z90.710 Acquired absence of both cervix and uterus; Z98.1 Arthrodesis status; Z98.42 Cataract extraction status, left eye; Z98.41 Cataract extraction status, right eye
CPT/HCPCS: 36415; 71045; 72148; 73721; 80048; 80053; 80061; 81001; 82550; 82962; 83036; 83605; 83735; 84443; 84484; 85007; 85025; 85651; 86140; 87040; 87086; 87186; 87804; 87804-59; 96361; 96365; 96375; 99291-25; J1030; J1650; J1815; J1885; J1956; J2405; J3010; J3490; J7030

== ENCOUNTER → 2018-01-01 | Outpatient (CLI) | payer MEDICARE | END | disposition home or self-care (01) | LOC: KCIC MRI 11:28 | DX: M51.16 Intervertebral disc disorders with radiculopathy, lumbar region (principal); M16.12 Unilateral primary osteoarthritis, left hip | CPT/HCPCS: 72148; 73721 ==

== ENCOUNTER 2018-01-06 00:40 | Inpatient (IN) | payer MEDICARE ==
[2018-01-06] MEDS: ONDANSETRON PF 4 MG/2 ML VIAL. IV (02:10)
[2018-01-06] MEDS: fentaNYL PF VIAL 100 MCG/2 ML VIAL IV ×5 (02:11→21:27)
[2018-01-06 03:00] LABS: ADD MAN DIFF? NO
[2018-01-06 03:07] LABS: BASO # 0.1 x10^3/uL (0.0-0.2); BASO % 1 % (0-3); EOS # 0.1 x10^3/uL (0.0-0.7); EOS % 1 % (0-3); HEMATOCRIT 34.1 % (36.0-47.0); HEMOGLOBIN 11.3 g/dL (12.0-15.5); LYMPH # 1.9 x10^3/uL (1.0-4.8); LYMPH % 17 % (24-48); MEAN CORPUSCULAR HEMOGLOBIN 28 pg (25-35); MEAN CORPUSCULAR HGB CONC 33 g/dL (31-37); MEAN CORPUSCULAR VOLUME 84 fL (79-100); MONO # 0.9 x10^3/uL (0.0-1.1); MONO % 9 % (0-9); NEUT # 7.8 x10^3uL (1.8-7.7); NEUT % 73 % (31-73); PLATELET COUNT 214 x10^3/uL (140-400); RED BLOOD COUNT 4.07 x10^6/uL (3.50-5.40); RED CELL DISTRIBUTION WIDTH 14.8 % (11.5-14.5); WHITE BLOOD COUNT 10.7 x10^3/uL (4.0-11.0)
[2018-01-06 03:09] LABS: INR 0.9 (0.8-1.1)
[2018-01-06 03:12] LABS: ANION GAP 12 (6-14); BLOOD UREA NITROGEN 20 mg/dL (7-20); BUN/CREATININE RATIO 25 (6-20); CALCIUM 8.7 mg/dL (8.5-10.1); CARBON DIOXIDE 27 mmol/L (21-32); CHLORIDE 100 mmol/L (98-107); CREATININE 0.8 mg/dL (0.6-1.0); GFR 71.3; GLUCOSE 133 mg/dL (70-99); SODIUM 139 mmol/L (136-145)
[2018-01-06 03:18] LABS: ALBUMIN/GLOBULIN RATIO 0.8 (1.0-1.7); ALK PHOS 79 U/L (46-116); ALT (SGPT) 34 U/L (14-59); AST (SGOT) 18 U/L (15-37); TOTAL BILIRUBIN 0.2 mg/dL (0.2-1.0)
[2018-01-06 03:23] LABS: BILIRUBIN,URINE NEGATIVE (NEG); CLARITY,URINE CLEAR; COLOR,URINE YELLOW; GLUCOSE,URINE NEGATIVE (NEG); NITRITE,URINE NEGATIVE (NEG); PROTEIN,URINE NEGATIVE (NEG-TRACE); UROBILINOGEN,URINE 0.2 mg/dL (0.2 mg/dL)
[2018-01-06 03:24] LABS: BACTERIA,URINE MODERATE /HPF (0-FEW); RBC,URINE 0 /HPF (0-2); SQUAMOUS EPITHELIAL CELL,UR MANY /LPF; WBC,URINE >40 /HPF (0-4)
[2018-01-06] MEDS ORDERED: ONDANSETRON PF 4 MG/2 ML VIAL. IV ×2 (04:15→09:15)
[2018-01-06] MEDS ORDERED: diphenhydrAMINE HCL 25 MG CAPSULE PO (08:45)
[2018-01-06 09:17] LABS: POC GLUCOSE 132 mg/dL (70-99)
[2018-01-06 11:54] LABS: POC GLUCOSE 209 mg/dL (70-99)
[2018-01-06] MEDS: LISINOPRIL 10 MG TABLET PO (13:26)
[2018-01-06] MEDS: HYDROXYCHLOROQUINE 200 MG TABLET PO ×2 (13:27→21:27)
[2018-01-06] MEDS: NAPROXEN 500 MG TABLET PO ×2 (13:27→21:26)
[2018-01-06] MEDS: clonazePAM 0.5 MG TABLET PO ×2 (13:27→21:26)
[2018-01-06] MEDS: FUROSEMIDE 40 MG TABLET. PO (13:27)
[2018-01-06] MEDS: PANTOPRAZOLE 40 MG TABLET.DR. PO (13:28)
[2018-01-06] MEDS: traMADol 50 MG TABLET PO ×2 (13:28→21:27)
[2018-01-06] MEDS: INSULIN ASPART 300 UNITS/3 ML INSULN.PEN SQ ×2 (13:44→18:08)
[2018-01-06 17:31] LABS: POC GLUCOSE 162 mg/dL (70-99)
[2018-01-06] MEDS ORDERED: predniSONE 20 MG TABLET PO ×2 (18:00→23:00)
[2018-01-06] MEDS: INSULN ASP PRT/INSULIN ASPART 300 UNITS/3 ML INSULN.PEN. SQ (18:09)
[2018-01-06 21:15] LABS: POC GLUCOSE 175 mg/dL (70-99)
[2018-01-06] MEDS: LACTOBACILLUS RHAMNOSUS GG 1 CAPSULE. PO (21:26)
[2018-01-06] MEDS: MONTELUKAST SODIUM 10 MG TABLET. PO (21:26)
[2018-01-06] MEDS: DULoxetine HCL 30 MG CAPSULE.DR PO (21:27)
[2018-01-06] MEDS: predniSONE 20 MG TABLET PO (22:32)
[2018-01-06] MEDS: predniSONE 10 MG TABLET PO (23:46)
[2018-01-07] MEDS ORDERED: predniSONE 20 MG TABLET PO ×3 (01:00→06:00)
[2018-01-07] MEDS: predniSONE 10 MG TABLET PO ×2 (01:35→06:14)
[2018-01-07 05:27] LABS: ADD MAN DIFF? NO
[2018-01-07 05:35] LABS: BASO % 0 % (0-3); EOS % 0 % (0-3); HEMATOCRIT 34.1 % (36.0-47.0); HEMOGLOBIN 11.5 g/dL (12.0-15.5); LYMPH # 0.9 x10^3/uL (1.0-4.8); LYMPH % 10 % (24-48); MEAN CORPUSCULAR HEMOGLOBIN 28 pg (25-35); MEAN CORPUSCULAR HGB CONC 34 g/dL (31-37); MEAN CORPUSCULAR VOLUME 84 fL (79-100); MONO # 0.4 x10^3/uL (0.0-1.1); MONO % 4 % (0-9); NEUT # 8.4 x10^3uL (1.8-7.7); NEUT % 86 % (31-73); PLATELET COUNT 227 x10^3/uL (140-400); RED BLOOD COUNT 4.06 x10^6/uL (3.50-5.40); RED CELL DISTRIBUTION WIDTH 14.6 % (11.5-14.5); WHITE BLOOD COUNT 9.7 x10^3/uL (4.0-11.0)
[2018-01-07 06:01] LABS: ANION GAP 10 (6-14); BLOOD UREA NITROGEN 20 mg/dL (7-20); CALCIUM 9.1 mg/dL (8.5-10.1); CARBON DIOXIDE 27 mmol/L (21-32); CHLORIDE 101 mmol/L (98-107); CREATININE 0.8 mg/dL (0.6-1.0); GFR 71.3; GLUCOSE 233 mg/dL (70-99); POTASSIUM 4.2 mmol/L (3.5-5.1); SODIUM 138 mmol/L (136-145)
[2018-01-07] MEDS: diphenhydrAMINE ORAL ELIXIR 12.5 MG/5 ML ML PO (06:14)
[2018-01-07] MEDS: fentaNYL PF VIAL 100 MCG/2 ML VIAL IV ×3 (06:15→21:28)
[2018-01-07 08:00] LABS: POC GLUCOSE 216 mg/dL (70-99)
[2018-01-07] MEDS: INSULN ASP PRT/INSULIN ASPART 300 UNITS/3 ML INSULN.PEN. SQ ×2 (08:00→17:52)
[2018-01-07] MEDS: IOHEXOL 180 MG/ML 10 ML VIAL. IT (10:52)
[2018-01-07] MEDS: clonazePAM 0.5 MG TABLET PO ×2 (11:45→21:27)
[2018-01-07] MEDS: LACTOBACILLUS RHAMNOSUS GG 1 CAPSULE. PO ×2 (11:45→21:27)
[2018-01-07] MEDS: LISINOPRIL 10 MG TABLET PO (11:45)
[2018-01-07] MEDS: FUROSEMIDE 40 MG TABLET. PO (11:45)
[2018-01-07] MEDS: PANTOPRAZOLE 40 MG TABLET.DR. PO (11:45)
[2018-01-07] MEDS: HYDROXYCHLOROQUINE 200 MG TABLET PO ×2 (11:45→21:27)
[2018-01-07] MEDS: NAPROXEN 500 MG TABLET PO ×2 (11:45→21:27)
[2018-01-07] MEDS: SENNOSIDES/DOCUSATE 8.6/50MG TABLET. PO ×2 (11:46→21:27)
[2018-01-07] MEDS: INSULIN ASPART 300 UNITS/3 ML INSULN.PEN SQ ×2 (12:21→17:51)
[2018-01-07 17:12] LABS: POC GLUCOSE 265 mg/dL (70-99)
[2018-01-07] MEDS: traMADol 50 MG TABLET PO (18:12)
[2018-01-07] MEDS: MONTELUKAST SODIUM 10 MG TABLET. PO (21:26)
[2018-01-07] MEDS: DULoxetine HCL 30 MG CAPSULE.DR PO (21:27)
[2018-01-07 22:06] LABS: POC GLUCOSE 238 mg/dL (70-99)
[2018-01-08] MEDS: traMADol 50 MG TABLET PO ×2 (00:13→06:23)
[2018-01-08 06:19] LABS: POC GLUCOSE 169 mg/dL (70-99)
[2018-01-08] MEDS: PANTOPRAZOLE 40 MG TABLET.DR. PO (06:23)
[2018-01-08 07:20] LABS: ADD MAN DIFF? NO
[2018-01-08 07:40] LABS: BASO % 0 % (0-3); EOS % 0 % (0-3); HEMATOCRIT 33.5 % (36.0-47.0); LYMPH # 2.6 x10^3/uL (1.0-4.8); LYMPH % 18 % (24-48); MEAN CORPUSCULAR HEMOGLOBIN 28 pg (25-35); MEAN CORPUSCULAR HGB CONC 33 g/dL (31-37); MEAN CORPUSCULAR VOLUME 84 fL (79-100); MONO # 0.9 x10^3/uL (0.0-1.1); MONO % 6 % (0-9); NEUT # 11.1 x10^3uL (1.8-7.7); NEUT % 76 % (31-73); PLATELET COUNT 232 x10^3/uL (140-400); RED BLOOD COUNT 3.99 x10^6/uL (3.50-5.40); RED CELL DISTRIBUTION WIDTH 14.8 % (11.5-14.5); WHITE BLOOD COUNT 14.7 x10^3/uL (4.0-11.0)
[2018-01-08 07:56] LABS: ANION GAP 8 (6-14); BLOOD UREA NITROGEN 23 mg/dL (7-20); CALCIUM 8.8 mg/dL (8.5-10.1); CARBON DIOXIDE 30 mmol/L (21-32); CHLORIDE 104 mmol/L (98-107); CREATININE 0.8 mg/dL (0.6-1.0); GFR 71.3; GLUCOSE 149 mg/dL (70-99); POTASSIUM 3.8 mmol/L (3.5-5.1); SODIUM 142 mmol/L (136-145)
[2018-01-08] MEDS: INSULN ASP PRT/INSULIN ASPART 300 UNITS/3 ML INSULN.PEN. SQ (08:00)
[2018-01-08 08:01] LABS: POC GLUCOSE 129 mg/dL (70-99)
[2018-01-08] MEDS: FUROSEMIDE 40 MG TABLET. PO (08:36)
[2018-01-08] MEDS: LACTOBACILLUS RHAMNOSUS GG 1 CAPSULE. PO (08:36)
[2018-01-08] MEDS: LISINOPRIL 10 MG TABLET PO (08:36)
[2018-01-08] MEDS: clonazePAM 0.5 MG TABLET PO (08:37)
[2018-01-08] MEDS: HYDROXYCHLOROQUINE 200 MG TABLET PO (08:37)
[2018-01-08] MEDS: INSULIN ASPART 300 UNITS/3 ML INSULN.PEN SQ ×2 (08:44→11:30)
[2018-01-08] MEDS: fentaNYL PF VIAL 100 MCG/2 ML VIAL IV ×2 (08:49→14:53)
[2018-01-08] MEDS ORDERED: methylPREDNISolone ACETATE 40 MG/ML VIAL. (10:15)
[2018-01-08] MEDS: BUPIVACAINE MPF 0.25% 10 ML VIAL. IJ (10:15)
[2018-01-08] MEDS ORDERED: BUPIVACAINE MPF 0.25% 10 ML VIAL. (10:15)
[2018-01-08] MEDS: methylPREDNISolone ACETATE 40 MG/ML VIAL. IM (10:15)
[2018-01-08 20:53] LABS: POC GLUCOSE 97 mg/dL (70-99)
== END 2018-01-08 15:30 | disposition home or self-care (01) | DRG 552 ==
LOC: ER 00:40 → 4 NORTH 02:37
DX: M51.36 Other intervertebral disc degeneration, lumbar region (principal); E11.40 Type 2 diabetes mellitus with diabetic neuropathy, unspecified; N39.0 Urinary tract infection, site not specified; M48.062 Spinal stenosis, lumbar region with neurogenic claudication; M47.816 Spondylosis without myelopathy or radiculopathy, lumbar region; M51.16 Intervertebral disc disorders with radiculopathy, lumbar region; F32.9 Major depressive disorder, single episode, unspecified; E78.5 Hyperlipidemia, unspecified; G89.29 Other chronic pain; J45.909 Unspecified asthma, uncomplicated; I10 Essential (primary) hypertension; K21.9 Gastro-esophageal reflux disease without esophagitis; F41.9 Anxiety disorder, unspecified; M79.7 Fibromyalgia; H81.09 Meniere's disease, unspecified ear; D64.9 Anemia, unspecified; M06.9 Rheumatoid arthritis, unspecified; E53.8 Deficiency of other specified B group vitamins; Z90.49 Acquired absence of other specified parts of digestive tract; Z90.710 Acquired absence of both cervix and uterus; Z88.5 Allergy status to narcotic agent; Z88.0 Allergy status to penicillin; Z88.2 Allergy status to sulfonamides; Z88.6 Allergy status to analgesic agent; Z91.041 Radiographic dye allergy status; Z79.4 Long term (current) use of insulin; Z98.1 Arthrodesis status
CPT/HCPCS: 36415; 72132; 72265; 80048; 80053; 81001; 82962; 85025; 85610; 87086; 96374; 96375; 97161-GP; 97166-GO; 97535-GO; 99285; 99285-25; J1030; J1815; J1956; J2405; J3010; J3490; J7512; Q9965

== ENCOUNTER → 2018-04-05 | Outpatient (CLI) | payer MEDICARE ==
[2018-04-05 13:10] LABS: ADD MAN DIFF? NO
[2018-04-05 13:13] LABS: BASO # 0.1 x10^3/uL (0.0-0.2); BASO % 1 % (0-3); EOS # 0.1 x10^3/uL (0.0-0.7); EOS % 1 % (0-3); HEMATOCRIT 38.7 % (36.0-47.0); HEMOGLOBIN 13.2 g/dL (12.0-15.5); LYMPH # 2.3 x10^3/uL (1.0-4.8); LYMPH % 28 % (24-48); MEAN CORPUSCULAR HEMOGLOBIN 29 pg (25-35); MEAN CORPUSCULAR HGB CONC 34 g/dL (31-37); MEAN CORPUSCULAR VOLUME 85 fL (79-100); MONO # 0.7 x10^3/uL (0.0-1.1); MONO % 8 % (0-9); NEUT # 5.1 x10^3uL (1.8-7.7); NEUT % 62 % (31-73); PLATELET COUNT 195 x10^3/uL (140-400); RED BLOOD COUNT 4.57 x10^6/uL (3.50-5.40); RED CELL DISTRIBUTION WIDTH 14.1 % (11.5-14.5); WHITE BLOOD COUNT 8.2 x10^3/uL (4.0-11.0)
[2018-04-05 13:27] LABS: ALBUMIN 4.3 g/dL (3.4-5.0); ALBUMIN/GLOBULIN RATIO 1.2 (1.0-1.7); ALK PHOS 81 U/L (46-116); ALT (SGPT) 36 U/L (14-59); ANION GAP 12 (6-14); AST (SGOT) 23 U/L (15-37); BLOOD UREA NITROGEN 20 mg/dL (7-20); BUN/CREATININE RATIO 20 (6-20); CALCIUM 9.3 mg/dL (8.5-10.1); CARBON DIOXIDE 26 mmol/L (21-32); CHLORIDE 99 mmol/L (98-107); GFR 55.1; GLUCOSE 104 mg/dL (70-99); POTASSIUM 3.4 mmol/L (3.5-5.1); SODIUM 137 mmol/L (136-145); TOTAL BILIRUBIN 0.5 mg/dL (0.2-1.0); TOTAL PROTEIN 7.8 g/dL (6.4-8.2)
[2018-04-05 13:29] LABS: PARTIAL THROMBOPLASTIN TIME 24 SEC (24-38); PROTHROMBIN TIME PATIENT 12.7 SEC (11.7-14.0)
[2018-04-05 21:15] LABS: MRSA BY PCR Negative (Negative)
== END | disposition home or self-care (01) ==
LOC: SURGPAT 12:36
DX: Z01.812 Encounter for preprocedural laboratory examination (principal); M51.16 Intervertebral disc disorders with radiculopathy, lumbar region; R79.1 Abnormal coagulation profile
CPT/HCPCS: 36415; 80053; 85025; 85610; 85730; 87641

== ENCOUNTER 2018-04-12 05:46 | Inpatient (IN) | payer MEDICARE ==
[2018-04-12 06:50] LABS: POC GLUCOSE 124 mg/dL (70-99)
[2018-04-12] MEDS: IV RINGERS,LACTATED 1000ML 1,000 ML IV ×2 (06:54→15:46)
[2018-04-12] MEDS ORDERED: PROCHLORPERAZINE 10 MG/2 ML VIAL. IV (07:00)
[2018-04-12] MEDS ORDERED: LIDOCAINE 1% PF 2 ML VIAL. ID (07:00)
[2018-04-12] MEDS ORDERED: ONDANSETRON PF 4 MG/2 ML VIAL. IV ×2 (07:00→14:15)
[2018-04-12] MEDS ORDERED: fentaNYL PF VIAL 100 MCG/2 ML VIAL IV (07:00)
[2018-04-12] MEDS ORDERED: MIDAZOLAM HCL/PF 2 MG/2 ML VIAL. (07:55)
[2018-04-12] MEDS ORDERED: REMIFENTANIL 2 MG VIAL. IV ×2 (07:55→11:47)
[2018-04-12] MEDS ORDERED: GLYCOPYRROLATE 1 MG/5 ML VIAL. (07:55)
[2018-04-12] MEDS ORDERED: DEXAMETHASONE SOD PHOS 20 MG/5 ML VIAL. (07:56)
[2018-04-12] MEDS ORDERED: DESFLURANE > 120 MINUTES IH (07:56)
[2018-04-12] MEDS ORDERED: PROPOFOL 20 ML IV (07:56)
[2018-04-12] MEDS ORDERED: KETOROLAC 30 MG/ML INJ FOR OR. INJ (07:56)
[2018-04-12] MEDS ORDERED: PHENYLEPHRINE 10 MG/ML VIAL. ×2 (07:56→07:57)
[2018-04-12] MEDS ORDERED: PROPOFOL 50 ML IV ×3 (07:56→11:48)
[2018-04-12] MEDS ORDERED: ROCURONIUM 50 MG/5 ML VIAL. (07:56)
[2018-04-12] MEDS ORDERED: ONDANSETRON PF 4 MG/2 ML VIAL. (07:56)
[2018-04-12] MEDS: VANCOMYCIN 1GM IVPB FOR OMNI 250 ML IV (08:40)
[2018-04-12] MEDS: BACITRACIN 50,000 UNIT in IV NORMAL SALINE 1000ML BAG 1,000 ML IRR (09:35)
[2018-04-12] MEDS: THROMBIN TOPICAL 20,000 UNIT SPRAY.SYRN KIT TP (09:35)
[2018-04-12] MEDS: GELATIN SPONGE SIZE 100. (09:35)
[2018-04-12] MEDS: BUPIVAC MPF-EPI 0.5%-1:200000 30 ML VIAL. INJ (09:35)
[2018-04-12] MEDS: KETOROLAC 60 MG/2 ML INJ FOR OR. (09:35)
[2018-04-12] MEDS ORDERED: fentaNYL PF VIAL 100 MCG/2 ML VIAL (14:03)
[2018-04-12] MEDS ORDERED: diphenhydrAMINE 50 MG/ML VIAL IV (14:15)
[2018-04-12] MEDS ORDERED: DEXTROSE 50% 25 GM / 50ML DISP.SYRIN. IV (14:15)
[2018-04-12] MEDS ORDERED: 0.9 % SODIUM CHLORIDE 10 ML DISP.SYRIN. IV (14:15)
[2018-04-12] MEDS ORDERED: diphenhydrAMINE HCL 25 MG CAPSULE PO (14:15)
[2018-04-12] MEDS ORDERED: MAG HYDROX/ALUMINUM HYD/SIMETH 30 ML ORAL.SUSP PO (14:15)
[2018-04-12] MEDS ORDERED: MAGNESIUM HYDROXIDE 2,400 MG/30 ML ORAL.SUSP. PO (14:15)
[2018-04-12] MEDS ORDERED: CALCIUM CARBONATE 500 MG TAB.CHEW PO (14:15)
[2018-04-12] MEDS: fentaNYL PF VIAL 100 MCG/2 ML VIAL IV ×4 (14:47→15:25)
[2018-04-12] MEDS: PROMETHAZINE 12.5 MG in IV NORMAL SALINE 50ML 50 ML IV (15:42)
[2018-04-12] MEDS: MEPERIDINE PF 25 MG/ML VIAL. IV (15:43)
[2018-04-12 16:27] LABS: POC GLUCOSE 166 mg/dL (70-99)
[2018-04-12] MEDS: DEXAMETHASONE SOD PHOS 20 MG/5 ML VIAL. IV (16:34)
[2018-04-12] MEDS ORDERED: DEXAMETHASONE SOD PHOS 4 MG/ML VIAL (16:35)
[2018-04-12] MEDS: POTASSIUM CL 20MEQ-0.45% NACL 1,000 ML IV ×2 (17:00→21:37)
[2018-04-12 19:48] LABS: POC GLUCOSE 180 mg/dL (70-99)
[2018-04-12] MEDS: VANCOMYCIN 1 GM in IV DEXTROSE 5% 250 ML IV (19:52)
[2018-04-12] MEDS: traMADol 50 MG TABLET PO (19:57)
[2018-04-12] MEDS: clonazePAM 0.5 MG TABLET PO (21:34)
[2018-04-12] MEDS: MONTELUKAST SODIUM 10 MG TABLET. PO (21:34)
[2018-04-12] MEDS: DULoxetine HCL 30 MG CAPSULE.DR PO (21:35)
[2018-04-12] MEDS: METHOCARBAMOL 750 MG TABLET PO (21:35)
[2018-04-12] MEDS: HYDROXYCHLOROQUINE 200 MG TABLET PO (21:35)
[2018-04-12] MEDS: DOCUSATE SODIUM 100 MG CAPSULE. PO (21:36)
[2018-04-12] MEDS: DEXAMETHASONE SOD PHOS 4 MG/ML VIAL IV (23:40)
[2018-04-13] MEDS: fentaNYL PF VIAL 100 MCG/2 ML VIAL IV ×5 (00:12→21:43)
[2018-04-13] MEDS: DEXAMETHASONE SOD PHOS 4 MG/ML VIAL IV (05:42)
[2018-04-13] MEDS: traMADol 50 MG TABLET PO ×3 (05:42→17:03)
[2018-04-13 06:36] LABS: POC GLUCOSE 152 mg/dL (70-99)
[2018-04-13] MEDS: PANTOPRAZOLE 40 MG TABLET.DR. PO (06:52)
[2018-04-13] MEDS: HYDROXYCHLOROQUINE 200 MG TABLET PO ×2 (08:12→20:39)
[2018-04-13] MEDS: NITROFURANTOIN MONOHYD/M-CRYST 100 MG CAPSULE. PO (08:12)
[2018-04-13] MEDS: DOCUSATE SODIUM 100 MG CAPSULE. PO ×2 (08:12→20:38)
[2018-04-13] MEDS: clonazePAM 0.5 MG TABLET PO ×2 (08:12→20:39)
[2018-04-13] MEDS: CETIRIZINE HCL 10 MG TABLET. PO (08:13)
[2018-04-13] MEDS: METHOCARBAMOL 750 MG TABLET PO ×3 (08:13→20:39)
[2018-04-13] MEDS: FUROSEMIDE 40 MG TABLET. PO (08:13)
[2018-04-13] MEDS: LISINOPRIL 10 MG TABLET PO (08:13)
[2018-04-13 16:57] LABS: POC GLUCOSE 109 mg/dL (70-99)
[2018-04-13 20:33] LABS: POC GLUCOSE 121 mg/dL (70-99)
[2018-04-13] MEDS: DULoxetine HCL 30 MG CAPSULE.DR PO (20:39)
[2018-04-13] MEDS: MONTELUKAST SODIUM 10 MG TABLET. PO (20:39)
[2018-04-13] MEDS ORDERED: traMADol 50 MG TABLET PO (22:30)
[2018-04-14] MEDS: fentaNYL PF VIAL 100 MCG/2 ML VIAL IV ×4 (00:15→23:44)
[2018-04-14] MEDS: traMADol 50 MG TABLET PO ×2 (01:59→06:41)
[2018-04-14 06:16] LABS: POC GLUCOSE 107 mg/dL (70-99)
[2018-04-14] MEDS: PANTOPRAZOLE 40 MG TABLET.DR. PO (07:01)
[2018-04-14] MEDS: DOCUSATE SODIUM 100 MG CAPSULE. PO ×2 (09:00→20:21)
[2018-04-14] MEDS: CETIRIZINE HCL 10 MG TABLET. PO (09:37)
[2018-04-14] MEDS: METHOCARBAMOL 750 MG TABLET PO ×3 (09:37→20:20)
[2018-04-14] MEDS: clonazePAM 0.5 MG TABLET PO ×2 (09:37→20:21)
[2018-04-14] MEDS: HYDROXYCHLOROQUINE 200 MG TABLET PO ×2 (09:37→20:21)
[2018-04-14] MEDS: LISINOPRIL 10 MG TABLET PO (09:37)
[2018-04-14] MEDS: NITROFURANTOIN MONOHYD/M-CRYST 100 MG CAPSULE. PO (09:38)
[2018-04-14] MEDS: FUROSEMIDE 40 MG TABLET. PO (09:38)
[2018-04-14] MEDS: BUPIVACAINE MPF 0.25% 10 ML VIAL. IJ (13:00)
[2018-04-14] MEDS: methylPREDNISolone ACETATE 40 MG/ML VIAL. IM (13:00)
[2018-04-14] MEDS: oxyCODONE IR 5 MG TABLET PO ×2 (15:30→20:21)
[2018-04-14 16:00] LABS: ADD MAN DIFF? NO
[2018-04-14 16:02] LABS: BASO # 0.1 x10^3/uL (0.0-0.2); BASO % 1 % (0-3); EOS # 0.1 x10^3/uL (0.0-0.7); EOS % 1 % (0-3); HEMATOCRIT 29.9 % (36.0-47.0); HEMOGLOBIN 10.1 g/dL (12.0-15.5); LYMPH # 1.5 x10^3/uL (1.0-4.8); LYMPH % 13 % (24-48); MEAN CORPUSCULAR HEMOGLOBIN 29 pg (25-35); MEAN CORPUSCULAR HGB CONC 34 g/dL (31-37); MEAN CORPUSCULAR VOLUME 84 fL (79-100); MONO # 1.1 x10^3/uL (0.0-1.1); MONO % 10 % (0-9); NEUT # 8.9 x10^3uL (1.8-7.7); NEUT % 77 % (31-73); PLATELET COUNT 180 x10^3/uL (140-400); RED BLOOD COUNT 3.54 x10^6/uL (3.50-5.40); RED CELL DISTRIBUTION WIDTH 14.2 % (11.5-14.5); WHITE BLOOD COUNT 11.7 x10^3/uL (4.0-11.0)
[2018-04-14 16:13] LABS: ANION GAP 6 (6-14); BLOOD UREA NITROGEN 14 mg/dL (7-20); CALCIUM 8.3 mg/dL (8.5-10.1); CARBON DIOXIDE 32 mmol/L (21-32); CHLORIDE 102 mmol/L (98-107); CREATININE 0.8 mg/dL (0.6-1.0); GFR 71.3; GLUCOSE 111 mg/dL (70-99); POTASSIUM 3.9 mmol/L (3.5-5.1); SODIUM 140 mmol/L (136-145)
[2018-04-14] MEDS: DULoxetine HCL 30 MG CAPSULE.DR PO (20:20)
[2018-04-14] MEDS: MONTELUKAST SODIUM 10 MG TABLET. PO (20:21)
[2018-04-15] MEDS: oxyCODONE IR 5 MG TABLET PO ×3 (01:45→16:27)
[2018-04-15] MEDS ORDERED: fentaNYL PF VIAL 100 MCG/2 ML VIAL IV ×2 (07:00)
[2018-04-15] MEDS ORDERED: LIDOCAINE 1% PF 2 ML VIAL. ID (07:00)
[2018-04-15] MEDS ORDERED: ONDANSETRON PF 4 MG/2 ML VIAL. IV (07:00)
[2018-04-15 07:06] LABS: POC GLUCOSE 95 mg/dL (70-99)
[2018-04-15] MEDS: BUPIVAC MPF-EPI 0.5%-1:200000 30 ML VIAL. INJ ×2 (07:30→12:19)
[2018-04-15] MEDS: PANTOPRAZOLE 40 MG TABLET.DR. PO (07:30)
[2018-04-15] MEDS: METHOCARBAMOL 750 MG TABLET PO ×3 (09:00→20:38)
[2018-04-15] MEDS: clonazePAM 0.5 MG TABLET PO ×2 (09:00→20:38)
[2018-04-15] MEDS: NITROFURANTOIN MONOHYD/M-CRYST 100 MG CAPSULE. PO (09:00)
[2018-04-15] MEDS: FUROSEMIDE 40 MG TABLET. PO (09:00)
[2018-04-15] MEDS: LISINOPRIL 10 MG TABLET PO (09:00)
[2018-04-15] MEDS: HYDROXYCHLOROQUINE 200 MG TABLET PO ×2 (09:00→20:38)
[2018-04-15] MEDS: CETIRIZINE HCL 10 MG TABLET. PO (09:00)
[2018-04-15] MEDS: DOCUSATE SODIUM 100 MG CAPSULE. PO ×2 (09:00→20:38)
[2018-04-15] MEDS ORDERED: fentaNYL PF VIAL 100 MCG/2 ML VIAL ×2 (10:15→13:32)
[2018-04-15] MEDS ORDERED: MIDAZOLAM HCL/PF 2 MG/2 ML VIAL. (10:15)
[2018-04-15] MEDS ORDERED: PROPOFOL 20 ML IV (10:15)
[2018-04-15] MEDS ORDERED: REMIFENTANIL 2 MG VIAL. IV (10:15)
[2018-04-15] MEDS ORDERED: LIDOCAINE 2% PF Vial for OR 5 ML VIAL. (10:15)
[2018-04-15] MEDS ORDERED: PROPOFOL 50 ML IV ×2 (10:15→12:48)
[2018-04-15] MEDS ORDERED: ROCURONIUM 50 MG/5 ML VIAL. (10:15)
[2018-04-15] MEDS ORDERED: ONDANSETRON PF 4 MG/2 ML VIAL. (10:15)
[2018-04-15] MEDS ORDERED: DEXAMETHASONE SOD PHOS 20 MG/5 ML VIAL. (10:15)
[2018-04-15] MEDS ORDERED: PHENYLEPHRINE 10 MG/ML VIAL. (10:29)
[2018-04-15] MEDS: IV RINGERS,LACTATED 1000ML 1,000 ML IV ×2 (11:00→14:55)
[2018-04-15] MEDS ORDERED: VANCOMYCIN 1GM IVPB FOR OMNI 250 ML (11:04)
[2018-04-15] MEDS: VANCOMYCIN 1GM IVPB FOR OMNI 250 ML IV (11:50)
[2018-04-15] MEDS ORDERED: ceFAZolin 2GM PREMIX 2 GM/50 ML BAG IV (12:00)
[2018-04-15] MEDS: THROMBIN TOPICAL 20,000 UNIT SPRAY.SYRN KIT TP (12:19)
[2018-04-15] MEDS: GELATIN SPONGE SIZE 100. (12:19)
[2018-04-15] MEDS: KETOROLAC 60 MG/2 ML INJ FOR OR. (12:19)
[2018-04-15] MEDS ORDERED: DESFLURANE > 120 MINUTES IH (12:25)
[2018-04-15] MEDS ORDERED: VANCOMYCIN 1GM IVPB FOR OMNI 250 ML IV (12:45)
[2018-04-15] MEDS ORDERED: GLYCOPYRROLATE 1 MG/5 ML VIAL. (13:07)
[2018-04-15] MEDS ORDERED: NEOSTIGMINE METHYLSULFATE 5 MG/5 ML SYRINGE. (13:07)
[2018-04-15 14:00] LABS: POC GLUCOSE 127 mg/dL (70-99)
[2018-04-15] MEDS: fentaNYL PF VIAL 100 MCG/2 ML VIAL IV ×3 (14:29→20:39)
[2018-04-15] MEDS: PROCHLORPERAZINE 10 MG/2 ML VIAL. IV (14:32)
[2018-04-15 16:32] LABS: POC GLUCOSE 149 mg/dL (70-99)
[2018-04-15] MEDS: traMADol 50 MG TABLET PO (19:28)
[2018-04-15] MEDS: MONTELUKAST SODIUM 10 MG TABLET. PO (20:38)
[2018-04-15] MEDS: DULoxetine HCL 30 MG CAPSULE.DR PO (20:38)
[2018-04-15] MEDS: ZOLPIDEM 5 MG TABLET. PO (22:34)
[2018-04-16 03:51] LABS: POC GLUCOSE 128 mg/dL (70-99)
[2018-04-16] MEDS: traMADol 50 MG TABLET PO ×2 (05:29→11:38)
[2018-04-16] MEDS: PANTOPRAZOLE 40 MG TABLET.DR. PO (05:29)
[2018-04-16 06:39] LABS: POC GLUCOSE 113 mg/dL (70-99)
[2018-04-16] MEDS: DOCUSATE SODIUM 100 MG CAPSULE. PO (08:24)
[2018-04-16] MEDS: clonazePAM 0.5 MG TABLET PO (08:25)
[2018-04-16] MEDS: FUROSEMIDE 40 MG TABLET. PO (08:25)
[2018-04-16] MEDS: LISINOPRIL 10 MG TABLET PO (08:25)
[2018-04-16] MEDS: NITROFURANTOIN MONOHYD/M-CRYST 100 MG CAPSULE. PO (08:25)
[2018-04-16] MEDS: CETIRIZINE HCL 10 MG TABLET. PO (08:25)
[2018-04-16] MEDS: METHOCARBAMOL 750 MG TABLET PO ×2 (08:25→13:30)
[2018-04-16] MEDS: HYDROXYCHLOROQUINE 200 MG TABLET PO (08:26)
[2018-04-16] MEDS: fentaNYL PF VIAL 100 MCG/2 ML VIAL IV (08:32)
== END 2018-04-16 14:02 | disposition home or self-care (01) | DRG 460 ==
LOC: OPSVCIP 05:46 → 4 SOUTHEST 16:58
PROVIDERS: Neurological Surgery
PROC: 0SG10K1 Fusion of 2 or more Lumbar Vertebral Joints with Nonautologous Tissue Substitute, Posterior Approach, Posterior Column, Open Approach (ICD-10-PCS; 2018-04-12 08:30)
PROC: 0SB20ZZ Excision of Lumbar Vertebral Disc, Open Approach (ICD-10-PCS; 2018-04-12 08:30)
PROC: 0SP30JZ Removal of Synthetic Substitute from Lumbosacral Joint, Open Approach (ICD-10-PCS; 2018-04-12 08:30)
PROC: 0SP00JZ Removal of Synthetic Substitute from Lumbar Vertebral Joint, Open Approach (ICD-10-PCS; 2018-04-12 08:30)
PROC: 01NB0ZZ Release Lumbar Nerve, Open Approach (ICD-10-PCS; 2018-04-12 08:30)
PROC: 4A11X4G Monitoring of Peripheral Nervous Electrical Activity, Intraoperative, External Approach (ICD-10-PCS; 2018-04-12 08:30)
PROC: 3E0U3BZ Introduction of Anesthetic Agent into Joints, Percutaneous Approach (ICD-10-PCS; principal; 2018-04-12 08:32)
PROC: 3E0U33Z Introduction of Anti-inflammatory into Joints, Percutaneous Approach (ICD-10-PCS; 2018-04-12 08:32)
DX: M51.16 Intervertebral disc disorders with radiculopathy, lumbar region (principal); D64.9 Anemia, unspecified; M47.26 Other spondylosis with radiculopathy, lumbar region; M70.61 Trochanteric bursitis, right hip; G89.29 Other chronic pain; I10 Essential (primary) hypertension; M79.7 Fibromyalgia; M06.9 Rheumatoid arthritis, unspecified; J45.909 Unspecified asthma, uncomplicated; M19.90 Unspecified osteoarthritis, unspecified site; Z90.710 Acquired absence of both cervix and uterus; Z83.3 Family history of diabetes mellitus; Z82.49 Family history of ischemic heart disease and other diseases of the circulatory system; Z80.9 Family history of malignant neoplasm, unspecified; Z87.891 Personal history of nicotine dependence; Z87.442 Personal history of urinary calculi; Z91.041 Radiographic dye allergy status
CPT/HCPCS: 36415; 72131; 76000; 80048; 82962; 85025; 86850; 86900; 86901; 88304; 88311; 97110-GP; 97116-GP; 97162-GP; 97164-GP; 97530-GP; A7015; C1713; G8978-CK-GP; G8979-CJ-GP; G8980-CJ-GP; J0690; J0780; J1030; J1100; J1885; J2175; J2250; J2405; J2550; J2704; J2710; J3010; J3370; J3490; J7030; J7120

== ENCOUNTER → 2018-07-02 | Outpatient (CLI) | payer MEDICARE | END | disposition home or self-care (01) | LOC: KCIC 16:00 | DX: M43.26 Fusion of spine, lumbar region (principal); E78.5 Hyperlipidemia, unspecified; K21.9 Gastro-esophageal reflux disease without esophagitis; I13.0 Hypertensive heart and chronic kidney disease with heart failure and stage 1 through stage 4 chronic kidney disease, or unspecified chronic kidney disease; E11.22 Type 2 diabetes mellitus with diabetic chronic kidney disease; I50.9 Heart failure, unspecified; N18.2 Chronic kidney disease, stage 2 (mild); F41.9 Anxiety disorder, unspecified; Z87.891 Personal history of nicotine dependence; Z98.890 Other specified postprocedural states; Z90.49 Acquired absence of other specified parts of digestive tract; Z90.710 Acquired absence of both cervix and uterus; Z86.39 Personal history of other endocrine, nutritional and metabolic disease; Z87.39 Personal history of other diseases of the musculoskeletal system and connective tissue; Z80.0 Family history of malignant neoplasm of digestive organs; Z82.0 Family history of epilepsy and other diseases of the nervous system; Z83.3 Family history of diabetes mellitus; Z82.49 Family history of ischemic heart disease and other diseases of the circulatory system | CPT/HCPCS: 72100 ==

== ENCOUNTER 2018-07-07 11:35 | Emergency (ER) | payer MEDICARE ==
[~2018-07-07] VITALS: Ht 157.5 cm; Wt 68.0 kg
[~2018-07-07 11:35] MED LIST changes: +Aspirin PO; +CETI10TA22 PO; +CLON0.5T11 PO; +CYAN10005 PO; +CYCL10TA2 PO; +DULO30CA2 PO; +FLUT16SP NS; +FLUT1DIS3 IH; +FURO40TA4 PO; +GABA-586 PO; +HYDR200T71 PO; +INSU100I16 SQ; +INSU100I27 SQ; +INSU100V13 SQ; -IOHEXOL 180 MG/ML 10 ML VIAL.; +LISI-338 PO; +LISI10TA PO; +METF10003 PO; +METF500T5 PO; +METH-38 PO; +MONT10TA9 PO; +NAPR-514 PO; +NAPR500T8 PO; +NITR100C PO; +OMEP40CA5 PO; +PANT40TA3 PO; +PHEN100T82 PO; +POTA20TA4 PO; +SENN-37 PO; +TIZA4TAB PO; +TRAM-48 PO; +VITAMIN B12 INJ; -methylPREDNISolone ACETATE 40 MG/ML VIAL.; -methylPREDNISolone ACETATE 80 MG/ML VIAL.
[2018-07-07 12:44] LABS: BASO % 1 % (0-3); EOS % 1 % (0-3); HEMATOCRIT 33.1 % (36.0-47.0); HEMOGLOBIN 11.2 g/dL (12.0-15.5); LYMPH # 1.8 x10^3/uL (1.0-4.8); LYMPH % 22 % (24-48); MEAN CORPUSCULAR HEMOGLOBIN 27 pg (25-35); MEAN CORPUSCULAR HGB CONC 34 g/dL (31-37); MEAN CORPUSCULAR VOLUME 80 fL (79-100); MONO # 0.6 x10^3/uL (0.0-1.1); MONO % 7 % (0-9); NEUT # 5.9 x10^3uL (1.8-7.7); NEUT % 70 % (31-73); PLATELET COUNT 294 x10^3/uL (140-400); RED BLOOD COUNT 4.14 x10^6/uL (3.50-5.40); RED CELL DISTRIBUTION WIDTH 14.9 % (11.5-14.5); WHITE BLOOD COUNT 8.5 x10^3/uL (4.0-11.0)
[2018-07-07 12:51] LABS: GFR 55.1; POTASSIUM 3.5 mmol/L (3.5-5.1)
[2018-07-07 12:58] LABS: ALBUMIN 3.3 g/dL (3.4-5.0); ALBUMIN/GLOBULIN RATIO 0.8 (1.0-1.7); MAGNESIUM 1.3 mg/dL (1.8-2.4); TOTAL BILIRUBIN 0.3 mg/dL (0.2-1.0); TOTAL PROTEIN 7.3 g/dL (6.4-8.2)
[2018-07-07 13:04] LABS: FREE T4 1.04 ng/dL (0.76-1.46); THYROID STIM HORMONE (TSH) 1.201 uIU/mL (0.358-3.74)
--- NOTE | 2018-07-07 13:22 | RAD ---
Single view of the chest. 07/07/2018 12:34 PM Indication: weakness Comparison: Chest radiograph January 01, 2018 Findings: There is no focal consolidation. There is no pleural effusion or pneumothorax. Heart size is normal. No acute osseous abnormalities are seen. Postoperative changes to the cervical spine noted. Impression: No evidence of acute cardiopulmonary process. Electronically signed by: Harris Nayak MD (07/07/2018 1:19 PM) [id number]
[2018-07-07] MEDS ORDERED: IV NORMAL SALINE 1000ML BAG 1,000 ML IV ONE (13:45)
--- NOTE | 2018-07-07 14:18 | EKG ---
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
[2018-07-07 14:47] LABS: BILIRUBIN,URINE NEGATIVE (NEG); CLARITY,URINE CLEAR; COLOR,URINE YELLOW; NITRITE,URINE NEGATIVE (NEG); PROTEIN,URINE 30 mg/dL (NEG-TRACE); UROBILINOGEN,URINE 0.2 mg/dL (0.2 mg/dL)
[2018-07-07 14:53] LABS: BACTERIA,URINE FEW /HPF (0-FEW); RBC,URINE OCC /HPF (0-2); WBC,URINE 20-40 /HPF (0-4)
[2018-07-07] MEDS ORDERED: LEVO750T31 PO (15:43)
--- NOTE | 2018-07-07 15:44 | PHYS DOC ---
Past Medical History Past Medical History: Asthma, Depression, Diabetes-Type II, Hypertension, Sciatica Additional Past Medical Histor: CHORNIC BACK PAIN Past Surgical History: Appendectomy, Cholecystectomy, Hysterectomy, Tonsillectomy, Other Additional Past Surgical Histo: bladder sling, cataracts, BILATERAL CARPAL TUNNEL, JAXON IN NECK, BACK SX Alcohol Use: None Drug Use: None Adult General Chief Complaint Chief Complaint: WEAKNESS/GENERALIZED HPI HPI Patient is a 67 year old female who presents to the ER with very vague complaints. Patient reports generalized weakness/fatigue for the past 2-3 weeks. States that she was seen in her PCPs office a few days ago and was advised that she had a low magnesium level. Patient states that she had follow- up again today but was advised to come to the ER. The patient reports history of recurrent urinary tract infections but denies any dysuria. Review of Systems Review of Systems Constitutional: Denies fever or chills [] Eyes: Denies change in visual acuity, redness, or eye pain [] HENT: Denies nasal congestion or sore throat [] Respiratory: Denies cough or shortness of breath [] Cardiovascular: No chest pain, no orthopnea, no lower extremity edema GI: Denies abdominal pain, nausea, vomiting, bloody stools or diarrhea [] : Denies dysuria or hematuria [] Musculoskeletal: Denies back pain or joint pain [] Integument: Denies rash or skin lesions [] Neurologic: Denies headache, focal weakness or sensory changes [] Endocrine: Denies polyuria or polydipsia [] All other systems were reviewed and found to be within normal limits, except as documented in this note. Current Medications Current Medications Current Medications Medications (Trade) Dose Ordered Sig/Lainey Start Time Stop Time Status Last Admin Dose Admin Ceftriaxone Sodium 50 ml @ 100 mls/hr 1X ONCE 07/07/18 15:45 07/07/18 16:14 Magnesium Sulfate 50 ml @ 25 mls/hr 1X ONCE 07/07/18 16:00 07/07/18 17:59 Sodium Chloride 1,000 ml @ 1,000 mls/hr 1X ONCE 07/07/18 13:45 07/07/18 14:44 DC 07/07/18 13:38 1,000 MLS/HR Allergies Allergies Allergies Coded Allergies Type Severity Reaction Last Updated Verified Iodinated Contrast- Oral and IV Dye Allergy Intermediate OK with premeds Yes Sulfa (Sulfonamide Antibiotics) Allergy Intermediate 04/12/18 Yes acetaminophen Allergy Intermediate Itching 04/12/18 Yes cephalexin Allergy Intermediate Nausea and Vomiting 04/12/18 Yes hydrocodone Allergy Intermediate Itching 04/12/18 Yes morphine Allergy Intermediate 04/12/18 Yes amoxicillin Adverse Reaction Intermediate Nausea and Vomiting 04/12/18 Yes clavulanic acid Adverse Reaction Intermediate Nausea and Vomiting 04/12/18 Yes Physical Exam Physical Exam Constitutional: Well developed, well nourished, HENT: Normocephalic, atraumatic, Eyes: PERRLA, EOMI, Neck: no stridor. [] Cardiovascular:Heart rate regular rhythm, no murmur [] Lungs & Thorax: Bilateral breath sounds clear to auscultation [] Abdomen: Bowel sounds normal, soft, no tenderness, no masses, no pulsatile masses. [] Skin: Warm, dry, no erythema, no rash. [] Extremities: No tenderness, ROM intact, no edema. [] Neurologic: Alert and oriented X 3, normal motor function, normal sensory function, no focal deficits noted. [] Psychologic: Affect normal, judgement normal, mood normal. [] Current Patient Data Vital Signs Vital Signs Date Time Temp Pulse Resp B/P (MAP) Pulse Ox O2 Delivery O2 Flow Rate FiO2 07/07/18 12:44 74 99 07/07/18 11:43 98.3 20 156/70 (98) Room Air 98.3 Lab Values Laboratory Tests Test 07/07/18 11:55 07/07/18 14:25 White Blood Count 8.5 x10^3/uL (4.0-11.0) Red Blood Count 4.14 x10^6/uL (3.50-5.40) Hemoglobin 11.2 g/dL (12.0-15.5) L Hematocrit 33.1 % (36.0-47.0) L Mean Corpuscular Volume 80 fL (79-100) Mean Corpuscular Hemoglobin 27 pg (25-35) Mean Corpuscular Hemoglobin Concent 34 g/dL (31-37) Red Cell Distribution Width 14.9 % (11.5-14.5) H Platelet Count 294 x10^3/uL (140-400) Neutrophils (%) (Auto) 70 % (31-73) Lymphocytes (%) (Auto) 22 % (24-48) L Monocytes (%) (Auto) 7 % (0-9) Eosinophils (%) (Auto) 1 % (0-3) Basophils (%) (Auto) 1 % (0-3) Neutrophils # (Auto) 5.9 x10^3uL (1.8-7.7) Lymphocytes # (Auto) 1.8 x10^3/uL (1.0-4.8) Monocytes # (Auto) 0.6 x10^3/uL (0.0-1.1) Eosinophils # (Auto) 0.0 x10^3/uL (0.0-0.7) Basophils # (Auto) 0.0 x10^3/uL (0.0-0.2) Sodium Level 142 mmol/L (136-145) Potassium Level 3.5 mmol/L (3.5-5.1) Chloride Level 105 mmol/L (98-107) Carbon Dioxide Level 29 mmol/L (21-32) Anion Gap 8 (6-14) Blood Urea Nitrogen 11 mg/dL (7-20) Creatinine 1.0 mg/dL (0.6-1.0) Estimated GFR (Cockcroft-Gault) 55.1 BUN/Creatinine Ratio 11 (6-20) Glucose Level 112 mg/dL (70-99) H Calcium Level 9.0 mg/dL (8.5-10.1) Magnesium Level 1.3 mg/dL (1.8-2.4) L Total Bilirubin 0.3 mg/dL (0.2-1.0) Aspartate Amino Transferase (AST) 14 U/L (15-37) L Alanine Aminotransferase (ALT) 17 U/L (14-59) Alkaline Phosphatase 86 U/L (46-116) Troponin I Quantitative < 0.017 ng/mL (0.000-0.055) Total Protein 7.3 g/dL (6.4-8.2) Albumin 3.3 g/dL (3.4-5.0) L Albumin/Globulin Ratio 0.8 (1.0-1.7) L Lipase 184 U/L (73-393) Thyroid Stimulating Hormone (TSH) 1.201 uIU/mL (0.358-3.74) Free Thyroxine 1.04 ng/dL (0.76-1.46) Urine Collection Type Unknown Urine Color Yellow Urine Clarity Clear Urine pH 6.0 Urine Specific [place] 1.010 Urine Protein 30 mg/dL (NEG-TRACE) Urine Glucose (UA) Negative mg/dL (NEG) Urine Ketones (Stick) Negative mg/dL (NEG) Urine Blood Negative (NEG) Urine Nitrite Negative (NEG) Urine Bilirubin Negative (NEG) Urine Urobilinogen Dipstick 0.2 mg/dL (0.2 mg/dL) Urine Leukocyte Esterase Large (NEG) Urine RBC Occ /HPF (0-2) Urine WBC 20-40 /HPF (0-4) Urine Bacteria Few /HPF (0-FEW) Urine Mucus Mod /LPF Laboratory Tests 07/07/18 11:55 Laboratory Tests 07/07/18 11:55 EKG EKG Normal sinus rhythm, heart rate 72, no significant ST segment changes.[] Radiology/Procedures Radiology/Procedures CXR [facility] [address] [place], [place] [id number] IMAGING REPORT Signed PATIENT: EMILY MONTIEL ACCOUNT: [id number] : 1950 LOCATION: ER AGE: 67 SEX: F EXAM STATUS: REG ER ORD. PHYSICIAN: ESTER ALVES DO REASON: weakness PROCEDURE: CHEST AP ONLY Single view of the chest. 07/07/2018 12:34 PM Indication: weakness Comparison: Chest radiograph January 01, 2018 Findings: There is no focal consolidation. There is no pleural effusion or pneumothorax. Heart size is normal. No acute osseous abnormalities are seen. Postoperative changes to the cervical spine noted. Impression: No evidence of acute cardiopulmonary process. Electronically signed by: Harris Jarvis MD (07/07/2018 1:19 PM) [facility] DICTATED and SIGNED BY: HARRIS JARVIS MD DATE: 07/07/18 1317 [] Course & Med Decision Making Course & Med Decision Making Pertinent Labs and Imaging studies reviewed. (See chart for details) []Labs and results of the above. Discussed with Dr. Ferguson patient's primary care physician. Recommendations for IV magnesium 2 grams. Agreed with outpatient management of urinary tract infection. We'll give one-time dose of Rocephin in the ER and discharged on Keflex. Discussed results with patient is agreeable with plan. Patient will follow up closely with Dr. Ferguson in the next 1 -2 days. He'll return precautions given. Patient verbalized understanding. All questions answered. Dragon Disclaimer Dragon Disclaimer This electronic medical record was generated, in whole or in part, using a voice recognition dictation system. Departure Departure Impression: Primary Impression: Weakness Additional Impressions: Urinary tract infection Hypomagnesemia Disposition: HOME, SELF-CARE Condition: STABLE Referrals: EMELINA FERGUSON MD (PCP) Patient Instructions: Urinary Tract Infection Additional Instructions: [facility] Please repeat the attached handouts. Please follow-up with your primary care physician. Return to the ER if your symptoms worsen or you have any other concerns. Take the entire course of antibiotics as prescribed. Follow-up with Dr. Ferguson in the next 1-2 days. Scripts Levofloxacin (LEVAQUIN) 750 Mg Tablet 1 TAB PO DAILY, #7 TAB Prov: ESTER ALVES DO 07/07/18 Problem Qualifiers ESTER ALVES DO Jul 07, 2018 15:44
[2018-07-07 15:45] VITALS: BP 142/63
[2018-07-07] MEDS ORDERED: MAGNESIUM SULFATE 2GM 50 ML IV ONE (16:00)
== END 2018-07-07 17:54 | disposition home or self-care (01) ==
LOC: ER 11:35
DX: N39.0 Urinary tract infection, site not specified (principal); E83.42 Hypomagnesemia; R53.1 Weakness; I10 Essential (primary) hypertension; E11.9 Type 2 diabetes mellitus without complications; J45.909 Unspecified asthma, uncomplicated; G89.29 Other chronic pain; Z90.710 Acquired absence of both cervix and uterus; Z90.49 Acquired absence of other specified parts of digestive tract; Z90.89 Acquired absence of other organs; Z88.1 Allergy status to other antibiotic agents; Z88.2 Allergy status to sulfonamides; Z88.5 Allergy status to narcotic agent; Z88.6 Allergy status to analgesic agent; Z91.041 Radiographic dye allergy status; Z88.8 Allergy status to other drugs, medicaments and biological substances
CPT/HCPCS: 36415; 71045; 80053; 81001; 83690; 83735; 84439; 84443; 84484; 85025; 87086; 93005; 96365; 96367; 99285; J0690; J3475; J7030

== ENCOUNTER → 2018-07-19 | Outpatient (CLI) | payer MEDICARE ==
[2018-07-07 15:45] VITALS: BP 142/63
[~2018-07-19] MED LIST changes: +LEVO750T31 PO
--- NOTE | 2018-07-19 11:12 | RAD ---
CT ABDOMEN PELVIS WO CONTRAST dated 07/19/2018 10:21 AM Indication:..CALCULUS OF RIGHT KIDNEY WITH CALCULUS OF URETER.. Comparison: No comparison is available. Technique: Contiguous axial imaging the abdomen and pelvis performed without the administration of IV or oral contrast. One or more of the following individualized dose reduction techniques were utilized for this examination: 1. Automated exposure control 2. Adjustment of the mA and/or kV according to patient size 3. Use of iterative reconstruction technique Findings: Limited images of lung bases show mild patchy and linear opacity in the left lower lobe. Heart size within normal limits. No pleural or pericardial effusion. Solid abdominal viscera not well evaluated in the absence of contrast material. No apparent attenuation abnormality of the liver or spleen. Pancreas, adrenal glands unremarkable. Gallbladder surgically absent. Kidneys are symmetric in size. No calcific renal or ureteral stone. No hydronephrosis. Unopacified GI tract normal in caliber and contour. No focal bowel wall thickening. No inflammatory stranding in the mesentery. No ascites or lymphadenopathy. Images the pelvis show mildly distended urinary bladder. Uterus is surgically absent. No free fluid or lymphadenopathy. There are borderline enlarged left inguinal lymph nodes, nonspecific. Bone windows show no acute findings. Multilevel spondylosis. There is evidence of prior laminectomy and fusion from L2 to L5 IMPRESSION: 1. No acute abnormality of abdomen or pelvis. No evidence of renal stone or hydronephrosis. 2. Status post cholecystectomy and hysterectomy and lower lumbar fusion. 3. Distended urinary bladder. Electronically signed by: Palmer Potts MD (07/19/2018 11:08 AM) [facility]
== END | disposition home or self-care (01) ==
LOC: CT 09:42
PROVIDERS: ATTEND Urology
DX: N32.89 Other specified disorders of bladder (principal); M47.896 Other spondylosis, lumbar region; I13.0 Hypertensive heart and chronic kidney disease with heart failure and stage 1 through stage 4 chronic kidney disease, or unspecified chronic kidney disease; E11.22 Type 2 diabetes mellitus with diabetic chronic kidney disease; I50.9 Heart failure, unspecified; N18.2 Chronic kidney disease, stage 2 (mild); M16.0 Bilateral primary osteoarthritis of hip; E78.5 Hyperlipidemia, unspecified; Z90.49 Acquired absence of other specified parts of digestive tract; Z88.2 Allergy status to sulfonamides; Z88.0 Allergy status to penicillin; Z88.1 Allergy status to other antibiotic agents; Z88.8 Allergy status to other drugs, medicaments and biological substances; Z82.49 Family history of ischemic heart disease and other diseases of the circulatory system
CPT/HCPCS: 74176

== ENCOUNTER → 2019-03-15 | Day surgery (SDC) | payer MEDICARE ==
[~2019-03-15] MED LIST changes: -GABA-586 PO; +GABA300C18 PO; +IV RINGERS,LACTATED 1000ML 1,000 ML IV SCH; +LIDOCAINE 1% PF 2 ML VIAL. ID PRN; +LIDOCAINE 2% PF 5 ML VIAL. ONE; -METF10003 PO; +METF10007 PO; +METF500T16 PO; -METF500T5 PO; +MIDAZOLAM HCL/PF 2 MG/2 ML VIAL. IV PRN; +ONABOTULINUMTOXINA 100 UNIT VIAL. ID ONE; +PROPOFOL 80 ML IV ONE; +fentaNYL PF VIAL 100 MCG/2 ML VIAL IV PRN
[2019-03-15 14:09] VITALS: BP 164/72
--- NOTE | 2019-03-16 15:06 | PATHOLOGY ---
[facility] Accession Number: [id number] . 01 Material submitted: . stomach - GASTRIC POLYP . 01 Clinical history: . Dysphagia . 02 Diagnosis: Gastric biopsy, gastric polyp: - Fundic gland polyp. (JPM:[facility] 03/16/2019) P/03/16/2019 . 02 Comment: There are no adenomatous changes or evidence of malignancy. (JPM:[facility] 03/16/2019) . 02 Electronically signed: . Temo Nino MD, Pathologist NPI- [id number] . 01 Gross description: . Received in formalin labeled "Dominick, Jas, gastric polyp BX," are 2 segments of saenz soft tissue measuring 0.6 x 0.2 x 0.2 cm in aggregate dimensions and ranging from 0.2 to 0.4 cm in maximum dimension. The specimen is submitted entirely in cassette A1. (TSD; 03/15/2019) TOB/TOB . 02 Pathologist provided ICD-10: K31.7 . 02 CPT . 479776 Specimen Comment: A courtesy copy of this report has been sent to Specimen Comment: [phone], . Specimen Comment: Report sent to / DR HERCULES Specimen Comment: A duplicate report has been generated due to demographic updates. Performed at: 01 [facility] [address], [place] [id number] MD Mitch Frederick MD Phone: [phone] Performed at: 02 [facility] [address] [place], [place] [id number] MD Temo Nino MD Phone: [phone]
--- NOTE | 2019-04-12 09:52 | PDOC4 ---
Operative Note Operative Note This an addendum to my operative note for upper endoscopic exam done 03/15/2019. The botulinum was injected intramuscular just proximal to GE junction for esophagogastric outlet obstruction. HOLLY BERNSTEIN MD April 12, 2019 09:52
== END | disposition home or self-care (01) ==
LOC: ENDOS 09:59
PROVIDERS: ATTEND Internal Medicine
DX: K31.7 Polyp of stomach and duodenum (principal); K44.9 Diaphragmatic hernia without obstruction or gangrene; I10 Essential (primary) hypertension; E78.5 Hyperlipidemia, unspecified; E11.9 Type 2 diabetes mellitus without complications; J45.909 Unspecified asthma, uncomplicated; K21.9 Gastro-esophageal reflux disease without esophagitis; Z90.49 Acquired absence of other specified parts of digestive tract; Z90.710 Acquired absence of both cervix and uterus; Z72.89 Other problems related to lifestyle; Z79.84 Long term (current) use of oral hypoglycemic drugs; Z72.0 Tobacco use
CPT/HCPCS: 43239; 43289; 88305; J0585; J2001; J2704; 43236; 43243

== ENCOUNTER → 2019-06-16 | Outpatient (CLI) | payer MEDICARE ==
[2019-03-15 14:09] VITALS: BP 164/72
[~2019-06-16] MED LIST changes: +CYAN-25 PO; -CYAN10005 PO; -IV RINGERS,LACTATED 1000ML 1,000 ML IV SCH; -LIDOCAINE 1% PF 2 ML VIAL. ID PRN; -LIDOCAINE 2% PF 5 ML VIAL. ONE; -MIDAZOLAM HCL/PF 2 MG/2 ML VIAL. IV PRN; +MONT10TA49 PO; -MONT10TA9 PO; -ONABOTULINUMTOXINA 100 UNIT VIAL. ID ONE; -PANT40TA3 PO; +PANT40TA77 PO; -PROPOFOL 80 ML IV ONE; -TIZA4TAB PO; +TIZA4TAB2 PO; -fentaNYL PF VIAL 100 MCG/2 ML VIAL IV PRN
[2019-06-16 16:43] LABS: BARBITURATES NEG (NEG); BENZODIAZEPINES NEG (NEG); CANNABINOIDS NEG (NEG); COCAINE NEG (NEG); METHADONE NEG (NEG); OPIATES NEG (NEG); PHENCYCLIDINE NEG (NEG)
[2019-06-16 16:44] LABS: AMPHETAMINE/METHAMPHETAMINE POS (NEG)
== END | disposition home or self-care (01) ==
LOC: LAB 15:53
PROVIDERS: ATTEND Psychiatry & Neurology Neurology
DX: G25.9 Extrapyramidal and movement disorder, unspecified (principal); Z79.899 Other long term (current) drug therapy
CPT/HCPCS: 36415; 80307; 82310; 82550; 82607; 84443

== ENCOUNTER → 2019-06-20 | Outpatient (CLI) | payer MEDICARE ==
[2019-03-15 14:09] VITALS: BP 164/72
--- NOTE | 2019-06-20 17:31 | KCIC ---
MRI Cervical Spine Without Contrast History: Falls, chronic neck pain, previous surgery Technique: Multiplanar, multi sequential noncontrast MR imaging was performed of the cervical spine. Comparison: March 24, 2018 Findings: There is some motion degradation. Cervical cord caliber is within normal limits without new convincing focal signal abnormality allowing for artifact from hardware. There is again posterior hardware with posterior lateral mass screws C4, C5, C6, C7. There is again mild grade 1 anterior spondylolisthesis C3-C4 and to lesser degree at C7-T1 and T2-3. There is again reversal of the lordotic curvature centered near C3-4. There is again fairly advanced narrowing of the C4-5, C5-6, and C6-7 intervertebral disc spaces and also degree of interbody fusion C5-6 and C6-7. There is no significant marrow edema of the cervical spine, endplate edema at T1-2 likely reactive/degenerative in etiology. C2-C3: Central canal is borderline about 10 mm. There is again facet degenerative change bilaterally. Neural foramina are not significantly narrowed. C3-C4: There is again facet degenerative change. Central canal is again minimally narrowed to 9 to 10 mm. There is again probable [id number] right and mild left neural foramina compromise. C4-C5: There is again artifact created by hardware. There again has been posterior decompression. There is again likely moderate left and mild right neural foramina compromise. C5-C6: There are again minimal posterior osteophytes. Spinal canal is overall adequate, again posterior decompression. Somewhat poorly evaluated, there is probable at least mild neural foramina compromise bilaterally by osteophytes. C6-C7: There are again posterior osteophytes. There again has been posterior decompression, spinal canal not significantly narrowed. Neural foramina are somewhat difficult to accurately characterize due to artifact from hardware, osteophytes in the uncovertebral regions as well as facet degenerative change with possible at least moderate left and mild right neural foramina compromise. C7-T1: Spinal canal is overall adequate. Neural foramina are also likely adequate. T1-2: There is again bulge/protrusion, likely mild narrowing of the central canal about 9 to 10 mm. There is at least mild neural foramina compromise bilaterally. T2-3: There is again shallow posterior protrusion. There is facet degenerative change, likely at least moderate narrowing of the right neural foramen and at least mild narrowing on the left. IMPRESSION: 1. Exam is degraded by motion, findings overall fairly similar compared with March 2018 exam other than increased T1-2 endplate edema likely reactive/degenerative in etiology. There is again multilevel posterior fusion hardware C4-C7, multilevel posterior decompression. There is multilevel cervical degenerative disc disease. There is mild spinal stenosis at C3-4. Neural foramina are somewhat difficult to accurately characterize, suspected narrowing as stated due to facet and uncovertebral osteophytes. Electronically signed by: Gamaliel Espinoza MD (06/20/2019 5:28 PM) [facility]
== END | disposition home or self-care (01) ==
LOC: KCIC MRI 16:01
PROVIDERS: ATTEND Psychiatry & Neurology Neurology
DX: M43.13 Spondylolisthesis, cervicothoracic region (principal); M48.02 Spinal stenosis, cervical region; M51.24 Other intervertebral disc displacement, thoracic region; M50.30 Other cervical disc degeneration, unspecified cervical region; M25.78 Osteophyte, vertebrae; W19.XXXS Unspecified fall, sequela
CPT/HCPCS: 72141

== ENCOUNTER → 2019-06-24 | Outpatient (CLI) | payer MEDICARE ==
[2019-03-15 14:09] VITALS: BP 164/72
--- NOTE | 2019-06-24 13:26 | EEG ---
DATE OF SERVICE: 06/24/2019 EEG NUMBER: [id number] OBJECTIVE: This is a 68-year-old female patient with history of abnormal movements. EEG was requested to help rule out seizure. METHODS: Twenty electrodes were applied according to the international 10-20 electrode placement system. EKG monitoring, hyperventilation, intermittent photic stimulation, monopolar and bipolar montages are routinely utilized. The record was obtained on a digital system with video monitoring. FINDINGS: 1. Background: The patient was recorded in the awake and drowsy states. No actual sleep state was recorded. The overall background amplitude is 10-20 microvolts. A posterior dominant rhythm of 8-9 Hz is observed. 2. Abnormalities: No specific epileptiform discharge or electrographic seizure is seen. No focal or diffuse slowing. 3. Activation: Hyperventilation was performed with good efforts and normal response. Intermittent photic stimulation was performed with photic driving. No specific epileptiform discharge or electrographic seizure induced by hyperventilation or intermittent photic stimulation. IMPRESSION: This EEG is a normal study for the awake and drowsy states. No actual sleep state was recorded. No focal, lateralizing, specific epileptiform discharge or electrographic seizure is seen. WILD SUMMERS MD DR: Concha JOB#: [id number] / [id number] RICHARD
== END | disposition home or self-care (01) ==
LOC: RT 07:22
PROVIDERS: ATTEND Psychiatry & Neurology Neurology
DX: G25.9 Extrapyramidal and movement disorder, unspecified (principal); R68.89 Other general symptoms and signs
CPT/HCPCS: 95816

== ENCOUNTER → 2019-07-19 | Outpatient (CLI) | payer MEDICARE ==
[2019-03-15 14:09] VITALS: BP 164/72
[~2019-07-19] MED LIST changes: +CEPH250C PO; +CLON-77 PO; -CLON0.5T11 PO; +FLUT9.9S NS; +GADOTERATE 7.5 MMOL/15ML VIAL. IVP ONE; +HUM100VI5 SQ; +TOPI25TA7 PO
--- NOTE | 2019-07-19 09:15 | KCIC ---
EXAMINATION: Magnetic resonance imaging (MRI) of the brain and brainstem without and with contrast 07/19/2019 8:00 AM HISTORY: Occipital headaches TECHNIQUE: Multiplanar multi-weighted MRI of the brain and brainstem was performed without and with intravenous contrast using the general brain protocol. Contrast information: 15 mL Gadolinium based contrast COMPARISON: None available. FINDINGS: The scalp and calvarium are normal. The superior sagittal sinus demonstrates normal venous flow. The corpus callosum is normal in shape and signal intensity. The posterior fossa is unremarkable. The pituitary and sella are normal. The brainstem and craniocervical junction are unremarkable. Diffusion weighted images reveal no hyperintensities to suggest acute cerebral infarction. The susceptibility weighted sequences reveal no evidence of acute or chronic hemorrhage. The ventricles are normal in size and position without evidence of hydrocephalus. There are no areas of abnormal contrast enhancement. The paranasal sinuses are normal. The visualized portions of the mastoids are unremarkable. The orbits appear normal. Normal flow voids are demonstrated in the carotid arteries and basilar artery. IMPRESSION: No evidence for acute or subacute ischemia. No suspicious intracranial enhancement is identified. Electronically signed by: Judit Szymanski MD (07/19/2019 9:13 AM) [facility]
== END | disposition home or self-care (01) ==
LOC: KCIC MRI 07:42
PROVIDERS: ATTEND Psychiatry & Neurology Neurology
DX: R51 Headache (principal); I10 Essential (primary) hypertension; E11.9 Type 2 diabetes mellitus without complications; J45.909 Unspecified asthma, uncomplicated; Z91.041 Radiographic dye allergy status
CPT/HCPCS: 70553; 82565; A9575

== ENCOUNTER 2019-08-03 00:31 | Inpatient (IN) | payer MEDICARE ==
[2019-08-03] VITALS (7 sets, daily range): BP systolic 124–163; BP diastolic 36–68
[~2019-08-03] VITALS: Ht 157.5 cm; Wt 79.8 kg
[~2019-08-03 00:31] MED LIST changes: -GADOTERATE 7.5 MMOL/15ML VIAL. IVP ONE
[2019-08-03 01:05] LABS: BASO # 0.1 x10^3/uL (0.0-0.2); BASO % 1 % (0-3); EOS # 0.1 x10^3/uL (0.0-0.7); EOS % 2 % (0-3); HEMOGLOBIN 10.7 g/dL (12.0-15.5); LYMPH # 2.4 x10^3/uL (1.0-4.8); LYMPH % 35 % (24-48); MEAN CORPUSCULAR HEMOGLOBIN 26 pg (25-35); MEAN CORPUSCULAR HGB CONC 33 g/dL (31-37); MEAN CORPUSCULAR VOLUME 79 fL (79-100); MONO # 0.5 x10^3/uL (0.0-1.1); MONO % 7 % (0-9); NEUT # 3.8 x10^3/uL (1.8-7.7); NEUT % 55 % (31-73); PLATELET COUNT 212 x10^3/uL (140-400); RED BLOOD COUNT 4.04 x10^6/uL (3.50-5.40); RED CELL DISTRIBUTION WIDTH 15.3 % (11.5-14.5); WHITE BLOOD COUNT 6.8 x10^3/uL (4.0-11.0)
[2019-08-03 01:15] LABS: CALCIUM 9.2 mg/dL (8.5-10.1); CREATININE 1.1 mg/dL (0.6-1.0); GFR 49.1; POTASSIUM 3.6 mmol/L (3.5-5.1)
--- NOTE | 2019-08-03 01:20 | RAD ---
CT HEAD AND CERVICAL SPINE WO Date: 08/03/2019 12:45 AM Clinical Indication: Headache, dizziness, syncope, fall with head trauma Comparison: MRI C-spine 06/20/2019. CT head 09/22/2017 Technique: 5 mm axial tomographic images were obtained of the head without contrast. These were viewed on brain and bone windows. CT imaging of the cervical spine was performed without contrast. Coronal and sagittal reformatted images were performed. One or more of the following dose reduction techniques were utilized: Automated exposure control (AEC), Adjustment of mA and/or kV according to patient size, Use of iterative reconstruction technique such as ASiR, CT scan done according to ALARA and image gently/image wisely HEAD FINDINGS: The brain parenchyma is normal in attenuation. No intra- or extra-axial mass or fluid collection. No acute hemorrhage. The ventricles are normal in size, shape, and morphology. The torres-white matter junction is normal. The basilar cisterns are patent. The visualized paranasal sinuses are normal. The visualized portions of the orbits and globes are normal. The mastoid air cells are clear. No aggressive osseous lesion or fracture. CERVICAL SPINE FINDINGS: Postsurgical changes of posterior decompression and instrumentation from C4-C7. Straightening of the cervical lordosis. Trace anterolisthesis of C3-4. No acute fracture. No aggressive lytic or blastic osseous lesion. Mild multilevel degenerative disc height loss. Spinal canal and neural foramen better evaluated on recent MRI C-spine report. The thyroid gland is normal. No cervical lymphadenopathy. The visualized aerodigestive tract is unremarkable. The visualized lung apices are clear. IMPRESSION: 1. No acute intracranial process. 2. No acute osseous abnormality of the cervical spine. Electronically signed by: Gamaliel Sanchez MD (08/03/2019 1:17 AM) [facility]
[2019-08-03 01:21] LABS: ALBUMIN 3.4 g/dL (3.4-5.0); MAGNESIUM 1.9 mg/dL (1.8-2.4); TOTAL BILIRUBIN 0.2 mg/dL (0.2-1.0); TOTAL PROTEIN 6.7 g/dL (6.4-8.2)
[2019-08-03] MEDS ORDERED: MECLIZINE HCL 12.5 MG TABLET. PO ONE (01:45)
[2019-08-03] MEDS ORDERED: ONDANSETRON PF 4 MG/2 ML VIAL. IV ONE (01:45)
--- NOTE | 2019-08-03 02:08 | PHYS DOC ---
Past Medical History Past Medical History: Asthma, Diabetes-Type II, Hypertension Additional Past Medical Histor: CHORNIC BACK PAIN Past Surgical History: Lumbar Laminectomy Additional Past Surgical Histo: bladder sling, cataracts, BILATERAL CARPAL TUNNEL, JAXON IN NECK, BACK SX Alcohol Use: None Drug Use: None Adult General Chief Complaint Chief Complaint: WEAKNESS/GENERALIZED HPI HPI Patient is a 69 year old female who was brought here by EMS for evaluation of dizziness, syncopal episode. She says she was sleeping in her bed, when she rolled over, turned her head in her bed she started having severe dizziness. She also has ringing sensation in her ears. She got up to go to the rest room, became more dizzy and nauseous, She fell down on the floor, whenever she tried to get up, she became more dizzy so her family called EMS to take her here for evaluation. She denies any chest pain, no trouble breathing, no back pain. Patient denies any pelvic pain, no extremity pain. She says she has history of vertigo in the past but not as severe today. Review of Systems Review of Systems All other ROS is negative unless otherwise noted in HPI Family History Family History See above Current Medications Current Medications Current Medications Medications (Trade) Dose Ordered Sig/Lainey Start Time Stop Time Status Last Admin Dose Admin Meclizine HCl (Antivert) 25 mg 1X ONCE 08/03/19 01:45 08/03/19 01:46 DC 08/03/19 02:01 25 MG Ondansetron HCl (Zofran) 8 mg 1X ONCE 08/03/19 01:45 08/03/19 01:46 DC 08/03/19 02:01 8 MG Allergies Allergies Allergies Coded Allergies Type Severity Reaction Last Updated Verified Iodinated Contrast Media Allergy Intermediate OK with premeds 03/15/19 Yes Sulfa (Sulfonamide Antibiotics) Allergy Intermediate 03/15/19 Yes acetaminophen Allergy Intermediate Itching 03/15/19 Yes cephalexin Allergy Intermediate Nausea and Vomiting 04/12/18 Yes hydrocodone Allergy Intermediate Itching 03/15/19 Yes morphine Allergy Intermediate 03/15/19 Yes amoxicillin Adverse Reaction Intermediate Nausea and Vomiting 04/12/18 Yes clavulanic acid Adverse Reaction Intermediate Nausea and Vomiting 04/12/18 Yes Physical Exam Physical Exam Constitutional: Well developed, well nourished, no acute distress, non-toxic appearance. [] HENT: Normocephalic, atraumatic, bilateral external ears normal, oropharynx moist, no oral exudates, nose normal. [] Eyes: PERRLA, EOMI, conjunctiva normal, no discharge. [] Neck: Normal range of motion, no tenderness, supple, no stridor. [] Cardiovascular:Heart rate regular rhythm, no murmur [] Lungs & Thorax: Bilateral breath sounds clear to auscultation [] Abdomen: Bowel sounds normal, soft, no tenderness, no masses, no pulsatile masses. [] Skin: Warm, dry, no erythema, no rash. [] Back: No tenderness, no CVA tenderness. [] Extremities: No tenderness, no cyanosis, no clubbing, ROM intact, no edema. Left forearm with superficial skin contusion, no bony tenderness to palpation. Neurologic: Alert and oriented X 3, normal motor function, normal sensory function, no focal deficits noted. [] Psychologic: Affect normal, judgement normal, mood normal. [] Current Patient Data Vital Signs Vital Signs Date Time Temp Pulse Resp B/P (MAP) Pulse Ox O2 Delivery O2 Flow Rate FiO2 08/03/19 02:00 78 14 97 08/03/19 00:31 97.7 161/72 (101) Room Air 97.7 See above Lab Values Laboratory Tests Test 08/03/19 00:50 White Blood Count 6.8 x10^3/uL (4.0-11.0) Red Blood Count 4.04 x10^6/uL (3.50-5.40) Hemoglobin 10.7 g/dL (12.0-15.5) L Hematocrit 32.0 % (36.0-47.0) L Mean Corpuscular Volume 79 fL (79-100) Mean Corpuscular Hemoglobin 26 pg (25-35) Mean Corpuscular Hemoglobin Concent 33 g/dL (31-37) Red Cell Distribution Width 15.3 % (11.5-14.5) H Platelet Count 212 x10^3/uL (140-400) Neutrophils (%) (Auto) 55 % (31-73) Lymphocytes (%) (Auto) 35 % (24-48) Monocytes (%) (Auto) 7 % (0-9) Eosinophils (%) (Auto) 2 % (0-3) Basophils (%) (Auto) 1 % (0-3) Neutrophils # (Auto) 3.8 x10^3/uL (1.8-7.7) Lymphocytes # (Auto) 2.4 x10^3/uL (1.0-4.8) Monocytes # (Auto) 0.5 x10^3/uL (0.0-1.1) Eosinophils # (Auto) 0.1 x10^3/uL (0.0-0.7) Basophils # (Auto) 0.1 x10^3/uL (0.0-0.2) Prothrombin Time 12.0 SEC (11.7-14.0) Prothrombin Time INR 0.9 (0.8-1.1) Activated Partial Thromboplast Time 25 SEC (24-38) Sodium Level 143 mmol/L (136-145) Potassium Level 3.6 mmol/L (3.5-5.1) Chloride Level 105 mmol/L (98-107) Carbon Dioxide Level 28 mmol/L (21-32) Anion Gap 10 (6-14) Blood Urea Nitrogen 16 mg/dL (7-20) Creatinine 1.1 mg/dL (0.6-1.0) H Estimated GFR (Cockcroft-Gault) 49.1 BUN/Creatinine Ratio 15 (6-20) Glucose Level 110 mg/dL (70-99) H Calcium Level 9.2 mg/dL (8.5-10.1) Magnesium Level 1.9 mg/dL (1.8-2.4) Total Bilirubin 0.2 mg/dL (0.2-1.0) Aspartate Amino Transferase (AST) 17 U/L (15-37) Alanine Aminotransferase (ALT) 18 U/L (14-59) Alkaline Phosphatase 82 U/L (46-116) Troponin I Quantitative < 0.017 ng/mL (0.000-0.055) Total Protein 6.7 g/dL (6.4-8.2) Albumin 3.4 g/dL (3.4-5.0) Albumin/Globulin Ratio 1.0 (1.0-1.7) Laboratory Tests 08/03/19 00:50 Laboratory Tests 08/03/19 00:50 EKG EKG EKG was read by this physician at 0042, rate of 72 bpm, sinus rhythm, prolonged QT, NO STEMI. Radiology/Procedures Radiology/Procedures [] IMAGING REPORT Signed PATIENT: EMILY MONTIEL ACCOUNT: [id number] : 1950 LOCATION: ER AGE: 69 SEX: F EXAM STATUS: REG ER ORD. PHYSICIAN: ANDREW RUTLEDGE DO REASON: had headache, dizziness, syncope, fell in the toilet. PROCEDURE: CT HEAD AND CERVICAL SPINE WO CT HEAD AND CERVICAL SPINE WO Date: 08/03/2019 12:45 AM Clinical Indication: Headache, dizziness, syncope, fall with head trauma Comparison: MRI C-spine 06/20/2019. CT head 09/22/2017 Technique: 5 mm axial tomographic images were obtained of the head without contrast. These were viewed on brain and bone windows. CT imaging of the cervical spine was performed without contrast. Coronal and sagittal reformatted images were performed. One or more of the following dose reduction techniques were utilized: Automated exposure control (AEC), Adjustment of mA and/or kV according to patient size, Use of iterative reconstruction technique such as ASiR, CT scan done according to ALARA and image gently/image wisely HEAD FINDINGS: The brain parenchyma is normal in attenuation. No intra- or extra-axial mass or fluid collection. No acute hemorrhage. The ventricles are normal in size, shape, and morphology. The torres-white matter junction is normal. The basilar cisterns are patent. The visualized paranasal sinuses are normal. The visualized portions of the orbits and globes are normal. The mastoid air cells are clear. No aggressive osseous lesion or fracture. CERVICAL SPINE FINDINGS: Postsurgical changes of posterior decompression and instrumentation from C4-C7. Straightening of the cervical lordosis. Trace anterolisthesis of C3-4. No acute fracture. No aggressive lytic or blastic osseous lesion. Mild multilevel degenerative disc height loss. Spinal canal and neural foramen better evaluated on recent MRI C-spine report. The thyroid gland is normal. No cervical lymphadenopathy. The visualized aerodigestive tract is unremarkable. The visualized lung apices are clear. IMPRESSION: 1. No acute intracranial process. 2. No acute osseous abnormality of the cervical spine. Electronically signed by: Lesia Sanchez MD (08/03/2019 1:17 AM) [facility] DICTATED and SIGNED BY: LESIA SANCHEZ MD DATE: 08/03/19 0117 Course & Med Decision Making Course & Med Decision Making Pertinent Labs and Imaging studies reviewed. (See chart for details) Patient felt much better after taking meclizine but she still felt dizzy whenever she sat up or moving her head around. Will admit her to the hospital for further evaluation. Discussed with Dr. Landa who is verification rep for Dr. Ferguson, agreed to admit patient. Dragon Disclaimer Dragon Disclaimer This electronic medical record was generated, in whole or in part, using a voice recognition dictation system. Departure Departure Impression: Primary Impression: Dizziness Additional Impression: Syncope and collapse Disposition: ADMITTED INPATIENT Admitting Physician: Emelina Ferguson Condition: STABLE Referrals: EMELINA FERGUSON MD (PCP) Problem Qualifiers ANDREW RUTLEDGE DO Aug 03, 2019 02:08
[2019-08-03] MEDS ORDERED: ONDANSETRON PF 4 MG/2 ML VIAL. IV PRN ×2 (03:15→10:00)
[2019-08-03 03:16] LABS: BILIRUBIN,URINE NEGATIVE (NEG); CLARITY,URINE CLEAR; COLOR,URINE YELLOW; NITRITE,URINE NEGATIVE (NEG); PH,URINE 5.5; PROTEIN,URINE NEGATIVE (NEG-TRACE); UROBILINOGEN,URINE 0.2 mg/dL (0.2 mg/dL)
[2019-08-03 03:21] LABS: SQUAMOUS EPITHELIAL CELL,UR FEW /LPF
[2019-08-03 03:22] LABS: BACTERIA,URINE 0 /HPF (0-FEW); RBC,URINE 0 /HPF (0-2); WBC,URINE OCC /HPF (0-4)
--- NOTE | 2019-08-03 05:44 | EKG ---
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
[2019-08-03] MEDS: FLUTICASONE 50MCG/NASAL SPRAY 16GM BOTTLE. NS SCH (09:22)
[2019-08-03] MEDS: metFORMIN 500 MG TABLET PO SCH ×2 (09:29→17:14)
[2019-08-03] MEDS: clonazePAM 0.5 MG TABLET PO SCH ×2 (09:29→21:06)
[2019-08-03] MEDS: TOPIRAMATE 25 MG TABLET. PO SCH ×2 (09:30→21:07)
[2019-08-03] MEDS: LISINOPRIL 10 MG TABLET PO SCH (09:30)
--- NOTE | 2019-08-03 09:50 | PDOC ---
Provider Note Provider Note [id number] seen. History and Physical dictated. See dictation#[id number] EMELINA HERCULES MD Aug 03, 2019 09:50
[2019-08-03] MEDS ORDERED: POTASSIUM CHLORIDE 20 MEQ TABLET.ER. PO ONE (10:00)
[2019-08-03] MEDS ORDERED: fentaNYL PF VIAL 100 MCG/2 ML VIAL IV PRN (10:00)
[2019-08-03] MEDS: INSULIN LISPRO 300 UNITS/3 ML VIAL. SQ SCH ×2 (10:00→16:30)
[2019-08-03] MEDS ORDERED: MECLIZINE HCL 12.5 MG TABLET. PO PRN (10:00)
--- NOTE | 2019-08-03 11:49 | PDOC2 ---
CHANDRA CHRISTIANSON BULL GANG WORKER 08/03/19 1149: CARDIAC CONSULT DATE OF CONSULT Date of Consult DATE: 08/03/19 TIME: 11:39 REASON FOR CONSULT Reason for Consult: Syncope REFERRING PHYSICIAN Referring Physician: Dr. Ferguson SOURCE Source: Chart review, Patient HISTORY OF PRESENT ILLNESS HISTORY OF PRESENT ILLNESS This is a 69 yo female who presented secondary to dizziness, syncopal episode. Patient reports she began feeling slightly dizzy last night while laying in bed. Got out of bed to go the the bathroom about 11:15pm and became significantly more dizzy. Had difficulty standing up. Went to bathroom. Turned around to sit on the toilet and next thing she knew she was laying on the floor in between the toilet and the bathtub. Laid on the floor for a bit and was finally able to gain enough strength to crawl on the floor to where her grandson was and called EMS. Patient reports experiencing difficulty speaking. Could think of what she wanted to say, but had difficulty expressing her thoughts. [place] weakness all over. Patient thought she was having a stroke. Has a history of vertigo, but she reports this to be very different from what she has experienced in the past with vertigo. No associated chest pain, palpitations, shortness or breath, or nausea/vomiting. Feeling better this morning, but does report some mild dizziness upon standing. PAST MEDICAL HISTORY Cardiovascular: HTN Pulmonary: Asthma CENTRAL NERVOUS SYSTEM: Other (meningitis ) GI: GERD, Irritable bowel disease Heme/Onc: Anemia NOS Psych: Anxiety, Depression Musculoskeletal: Osteoarthritis Rheumatologic: Fibromyalgia, Rheumatoid arthritis Renal/: UTI Endocrine: Diabetes PAST SURGICAL HISTORY Past Surgical History: Appendectomy, Cholecystectomy, Cataract Removal, Tonsillectomy, Hysterectomy, Other (laminectomy, cervical fusion, carpal tunnel surgery ) FAMILY HISTORY Family History: Cancer (leukemia- mom), Diabetes, Hypertension SOCIAL HISTORY Smoke: No ALCOHOL: none Drugs: None Lives: with Family CURRENT MEDICATIONS CURRENT MEDICATIONS Current Medications Medications (Trade) Dose Ordered Sig/Lainey Route PRN Reason Start Time Stop Time Status Last Admin Dose Admin Meclizine HCl (Antivert) 25 mg 1X ONCE PO 08/03/19 01:45 08/03/19 01:46 DC 08/03/19 02:01 Ondansetron HCl (Zofran) 8 mg 1X ONCE IV 08/03/19 01:45 08/03/19 01:46 DC 08/03/19 02:01 Lisinopril (Prinivil) 10 mg DAILY PO 08/03/19 10:00 08/03/19 09:30 Metformin HCl (Glucophage) 1,000 mg BIDWMEALS PO 08/03/19 10:00 08/03/19 09:30 Topiramate (Topamax) 25 mg BID PO 08/03/19 10:00 08/03/19 09:30 ALLERGIES ALLERGIES: Coded Allergies: Iodinated Contrast Media (Verified Allergy, Intermediate, OK with premeds, 03/15/19) Sulfa (Sulfonamide Antibiotics) (Verified Allergy, Intermediate, 03/15/19) acetaminophen (Verified Allergy, Intermediate, Itching, 03/15/19) cephalexin (Verified Allergy, Intermediate, Nausea and Vomiting, 04/12/18) hydrocodone (Verified Allergy, Intermediate, Itching, 03/15/19) morphine (Verified Allergy, Intermediate, 03/15/19) amoxicillin (Verified Adverse Reaction, Intermediate, Nausea and Vomiting, 04/12/18) clavulanic acid (Verified Adverse Reaction, Intermediate, Nausea and Vomiting, 04/12/18) ROS Review of System 14 point ROS conducted with pertinent positives noted above in HPI. PHYSICAL EXAM General: Alert, Oriented X3, Cooperative, No acute distress HEENT: Atraumatic Lungs: Clear to auscultation, Normal air movement Heart: Regular rate, Normal S1, Normal S2, No murmurs Abdomen: Soft, No tenderness Extremities: No edema, Normal pulses Skin: No significant lesion Neuro: Normal speech, Sensation intact Psych/Mental Status: Mental status NL, Mood NL MUSCULOSKELETAL: Osteoarthritic changes both hands VITALS/I&O VITALS/I&O: Vital Signs Date Time Temp Pulse Resp B/P (MAP) Pulse Ox O2 Delivery O2 Flow Rate FiO2 08/03/19 10:51 98.5 81 17 128/54 (78) 99 Room Air 98.5 I & O 08/02/19 08/02/19 08/03/19 15:00 23:00 07:00 Intake Total 120 ml Balance 120 ml LABS Lab: Laboratory Tests Test 08/03/19 00:50 08/03/19 03:10 08/03/19 07:30 White Blood Count 6.8 x10^3/uL (4.0-11.0) Red Blood Count 4.04 x10^6/uL (3.50-5.40) Hemoglobin 10.7 g/dL (12.0-15.5) L Hematocrit 32.0 % (36.0-47.0) L Mean Corpuscular Volume 79 fL (79-100) Mean Corpuscular Hemoglobin 26 pg (25-35) Mean Corpuscular Hemoglobin Concent 33 g/dL (31-37) Red Cell Distribution Width 15.3 % (11.5-14.5) H Platelet Count 212 x10^3/uL (140-400) Neutrophils (%) (Auto) 55 % (31-73) Lymphocytes (%) (Auto) 35 % (24-48) Monocytes (%) (Auto) 7 % (0-9) Eosinophils (%) (Auto) 2 % (0-3) Basophils (%) (Auto) 1 % (0-3) Neutrophils # (Auto) 3.8 x10^3/uL (1.8-7.7) Lymphocytes # (Auto) 2.4 x10^3/uL (1.0-4.8) Monocytes # (Auto) 0.5 x10^3/uL (0.0-1.1) Eosinophils # (Auto) 0.1 x10^3/uL (0.0-0.7) Basophils # (Auto) 0.1 x10^3/uL (0.0-0.2) Prothrombin Time 12.0 SEC (11.7-14.0) Prothrombin Time INR 0.9 (0.8-1.1) Activated Partial Thromboplast Time 25 SEC (24-38) Sodium Level 143 mmol/L (136-145) Potassium Level 3.6 mmol/L (3.5-5.1) Chloride Level 105 mmol/L (98-107) Carbon Dioxide Level 28 mmol/L (21-32) Anion Gap 10 (6-14) Blood Urea Nitrogen 16 mg/dL (7-20) Creatinine 1.1 mg/dL (0.6-1.0) H Estimated GFR (Cockcroft-Gault) 49.1 BUN/Creatinine Ratio 15 (6-20) Glucose Level 110 mg/dL (70-99) H Calcium Level 9.2 mg/dL (8.5-10.1) Magnesium Level 1.9 mg/dL (1.8-2.4) Total Bilirubin 0.2 mg/dL (0.2-1.0) Aspartate Amino Transferase (AST) 17 U/L (15-37) Alanine Aminotransferase (ALT) 18 U/L (14-59) Alkaline Phosphatase 82 U/L (46-116) Troponin I Quantitative < 0.017 ng/mL (0.000-0.055) Total Protein 6.7 g/dL (6.4-8.2) Albumin 3.4 g/dL (3.4-5.0) Albumin/Globulin Ratio 1.0 (1.0-1.7) Urine Collection Type Unknown Urine Color Yellow Urine Clarity Clear Urine pH 5.5 Urine Specific Hunters 1.010 Urine Protein Negative mg/dL (NEG-TRACE) Urine Glucose (UA) Negative mg/dL (NEG) Urine Ketones (Stick) Negative mg/dL (NEG) Urine Blood Negative (NEG) Urine Nitrite Negative (NEG) Urine Bilirubin Negative (NEG) Urine Urobilinogen Dipstick 0.2 mg/dL (0.2 mg/dL) Urine Leukocyte Esterase Negative (NEG) Urine RBC 0 /HPF (0-2) Urine WBC Occ /HPF (0-4) Urine Squamous Epithelial Cells Few /LPF Urine Bacteria 0 /HPF (0-FEW) Urine Mucus Slight /LPF Glucose (Fingerstick) 116 mg/dL (70-99) H Laboratory Tests 08/03/19 00:50 Laboratory Tests 08/03/19 00:50 ECHOCARDIOGRAM ECHOCARDIOGRAM <Conclusion> Technically very difficult study. The left ventricular systolic function is normal. The Ejection Fraction is estimated at 60-65%. There is normal LV segmental wall motion. Valve not well interrogated but a vegetation on posterior leaflet cannot be ruled out. There appears to be moderate mitral regurgitation. Recommend OMEGA if clinically indicated. Doppler and Color Flow revealed trace tricuspid regurgitation. The PA pressure was estimated at 30 mmHg. There is no evidence of significant pericardial effusion. DATE: 04/30/15 1616 OMEGA <Conclusion> The left ventricular systolic function is normal. The Ejection Fraction is estimated at 60%. There is normal LV segmental wall motion. The mitral valve is normal in structure. Doppler and Color Flow revealed trace mitral regurgitation. Doppler and Color Flow revealed trace tricuspid regurgitation. There is no evidence of significant pericardial effusion. No intracardiac vegetation or thrombus. DATE: 05/01/15 1453 STRESS TEST STRESS TEST Conclusion 1. Regadenoson cardioisotope stress test showed breast attenuation artifact without any evidence of ischemia or infarct. 2. Normal left ventricular systolic function with ejection fraction calculated at 69%. 3. Low risk for cardiovascular events. DATE: 04/30/15 1459 ASSESSMENT/PLAN ASSESSMENT/PLAN 1. Dizziness, syncope, dysarthria. CT head without acute findings. Concerns for acute stroke. No acute events on tele thus far 2. H/o vertigo. Follows with Dr. Jane. 2. Hypertension; controlled 3. Diabetes, II; as per PCP 4. DDD Recommendations Check orthos Lipids, TSH Echo to assess LV systolic function/ ruled out significant valvular insufficiency Monitor tele Supportive care Follow neuro recs KAMINI SALCEDO MD 08/03/19 1730: CARDIAC CONSULT ASSESSMENT/PLAN ASSESSMENT/PLAN Patient seen and examined. 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 Dizziness consistent with vertigo but since she had dysarthria, there is concern for brainstem stroke per neurology team Continue current workup 2-D echo showed normal LV function without any significant structural abnormalities Telemetry did not show any significant arrhythmia so for We will consider event monitor as an outpatient Thank you for your consultation CHANDRA CHRISTIANSON APRN Aug 03, 2019 11:49 KAMINI SALCEDO MD Aug 03, 2019 17:30
[2019-08-03 12:16] LABS: CHOLESTEROL/HDL RATIO 2.3
[2019-08-03] MEDS ORDERED: ASPIRIN RECTAL 300 MG SUPP. PR PRN (12:45)
--- NOTE | 2019-08-03 13:30 | PDOC2 ---
NEUROLOGY CONSULT Date of Admission Date of Admission DATE: 08/03/19 TIME: 13:20 Reason for Consult Reason for Consult: dizziness, syncope Referring Physician Referring Physician: Dr. Ferguson Source Source: Chart review, Patient History of Present Illness History of Present Illness The patient is a 69-year-old right-handed female who last night woke up about 11 PM and noticed onset of severe vertigo. She stumbled down the cortes. She then lost consciousness in the bathroom. Her speech was slurred. She crawled to wake up one of her 2 grand children who live with her, and they called 911. She follows with my associate, Dr. Jane, who just saw her 07/14/19. She has been having syncope and dizziness. EEG on 10/01/17 showed no epileptic discharges, cervical MRI on 06/20/[address] showed reactive [address] disease[address] Dr[address] Jane Started the patient at the last appointment on topiramate for headaches. There is no history of stroke, seizure, or head injury. She does have a history of migraines in the remote past and indeed she had a severe headache last night. She also has had vertigo in the past ascribed to benign positional vertigo Past Medical History Cardiovascular: HTN, Hyperlipidemia Pulmonary: Asthma, Pneumonia CENTRAL NERVOUS SYSTEM: Migraine, Other ( meningitis) GI: GERD, Irritable bowel disease, Other ( colonic polyps) Heme/Onc: Anemia NOS Psych: Anxiety, Depression Musculoskeletal: low back pain ( and cervical pain) Rheumatologic: Fibromyalgia, Rheumatoid arthritis Renal/: UTI Endocrine: Diabetes Dermatology: Basal cell Past Surgical History Past Surgical History: Appendectomy, Cholecystectomy, Cataract Removal, Tonsillectomy (Adenoidectomy), Hysterectomy, Other ( lumbar laminectomy) Family History Family History: DM, Other ( Parkinsons) Social History Social History , 2 grandchildren live with her, no tobacco or alcohol Current Medications Current Medications Current Medications Meclizine HCl (Antivert) 25 mg 1X ONCE PO Last administered on 08/03/19at 02:01; Start 08/03/19 at 01:45; Stop 08/03/19 at 01:46; Status DC Ondansetron HCl (Zofran) 8 mg 1X ONCE IV Last administered on 08/03/19at 02:01; Start 08/03/19 at 01:45; Stop 08/03/19 at 01:46; Status DC Ondansetron HCl (Zofran) 4 mg PRN Q8HRS PRN IV NAUSEA/VOMITING; Start 08/03/19 at 03:15; Stop 08/03/19 at 10:00; Status DC Clonazepam (KlonoPIN) 0.5 mg BID PO ; Start 08/03/19 at 10:00 Duloxetine HCl (Cymbalta) 60 mg HS PO ; Start 08/03/19 at 21:00 Hydroxychloroquine Sulfate (Plaquenil) 400 mg BID PO ; Start 08/03/19 at 21:00 Lisinopril (Prinivil) 10 mg DAILY PO Last administered on 08/03/19at 09:30; Start 08/03/19 at 10:00 Metformin HCl (Glucophage) 1,000 mg BIDWMEALS PO Last administered on 08/03/19at 09:30; Start 08/03/19 at 10:00 Montelukast Sodium (Singulair) 10 mg HS PO ; Start 08/03/19 at 21:00 Topiramate (Topamax) 25 mg BID PO Last administered on 08/03/19at 09:30; Start 08/03/19 at 10:00 Fluticasone Propionate (Flonase) 2 spray DAILY NS ; Start 08/03/19 at 10:00 Insulin Human Lispro (HumaLOG) 0-8 UNITS BIDBFRMEAL SQ ; Start 08/03/19 at 10:00 Potassium Chloride (Klor-Con) 20 meq 1X ONCE PO Last administered on 08/03/19at 12:03; Start 08/03/19 at 10:00; Stop 08/03/19 at 10:01; Status DC Meclizine HCl (Antivert) 25 mg PRN Q6HRS PRN PO DIZZINESS; Start 08/03/19 at 10:00 Ondansetron HCl (Zofran) 4 mg PRN Q6HRS PRN IV NAUSEA/VOMITING; Start 08/03/19 at 10:00 Fentanyl Citrate (Fentanyl 2ml Vial) 25 mcg PRN Q4HRS PRN IV PAIN MODERATE TO SEVERE; Start 08/03/19 at 10:00 Aspirin (Ecotrin) 325 mg DAILYWBKFT PO ; Start 08/04/19 at 08:00 Aspirin (Aspirin Rectal Supp) 300 mg PRN DAILY PRN ND IF UNABLE TO TAKE PO; Start 08/03/19 at 12:45 Active Scripts Active Prinivil (Lisinopril) 10 Mg Tablet 10 Mg PO DAILY Cymbalta (Duloxetine Hcl) 30 Mg Capsule. 60 Mg PO HS Reported Montelukast Sodium Tablet (Montelukast Sodium) 10 Mg Tablet 10 Mg PO HS Novolin 70-30 100 Unit/Ml Vial (Hum Insulin Nph/Reg Insulin Hm) 100 Unit/1 Ml Vial 22 Unit SQ DAILY08 Cephalexin 250 Mg Capsule 1 Cap PO DAILY Flonase Allergy Relief (Fluticasone Propionate) 9.9 Ml [place].susp 2 Sprays NS DAILY Topiramate 25 Mg Tablet 1 Tab PO BID [Vitamin B12 Inj] Q2WKS Zyrtec (Cetirizine Hcl) 10 Mg Tablet 1 Tab PO DAILY Ultram (Tramadol Hcl) 50 Mg Tablet 1-2 Tab PO Q4-6HRS PRN Metformin Hcl 500 Mg Tablet 1,000 Mg PO BIDWMEALS Montelukast Sodium Tablet (Montelukast Sodium) 10 Mg Tablet 1 Tab PO HS Plaquenil (Hydroxychloroquine Sulfate) 200 Mg Tablet 400 Mg PO BID Clonazepam (Clonazepam) 0.5 Mg Tablet 1 Tab PO BID Furosemide 40 Mg Tablet 1 Tab PO DAILY Allergies Allergies: Coded Allergies: Iodinated Contrast Media (Verified Allergy, Intermediate, OK with premeds, 03/15/19) Sulfa (Sulfonamide Antibiotics) (Verified Allergy, Intermediate, 03/15/19) acetaminophen (Verified Allergy, Intermediate, Itching, 03/15/19) cephalexin (Verified Allergy, Intermediate, Nausea and Vomiting, 04/12/18) hydrocodone (Verified Allergy, Intermediate, Itching, 03/15/19) morphine (Verified Allergy, Intermediate, 03/15/19) amoxicillin (Verified Adverse Reaction, Intermediate, Nausea and Vomiting, 04/12/18) clavulanic acid (Verified Adverse Reaction, Intermediate, Nausea and V omiting, 04/12/18) ROS Review of System Negative for fever, chills, weight loss, shortness of breath, chest pain, indigestion, hematochezia, melena, and dysuria. Full 14-point review of systems is negative. Physical Exam Physical Examination General: Well-developed, well-nourished white female in no acute distress HEENT: Normocephalic and�atraumatic. Tympanic membranes clear.�Temporal arteries�pulsatile and nontender.� Neck: Supple without bruit, no meningismus� Musculoskeletal: Stability:�see neurologic. Gait exam:�see neurologic. Tone:�see neurologic.�Strength:�see neurologic.� Neurological: Mental Status:�intact, orientation, memory, attention span/concentration, language, fund of knowledge normal. Cranial Nerves:�Pupils equal and reactive to light, extraocular movements are�intact, visual day are full to confr ontation. Facial sensation is normal. There is no facial asymmetry. Vestibulo- ocular reflex is intact. Palate elevates and tongue protrudes in midline. She has vertigo when I sit her up in bed but I observe no nystagmus. All other cranial related problems are negative except as mentioned before.�Reflexes:�2+ and symmetric with flexor plantar responses. Motor:�5/5 strength with normal tone and bulk. Coordination:�Finger-nose finger and xktq-[id number] testing are normal. Rapid alternating movements and fine finger movements are intact. Gait:�not tested, too dizzy. Sensory:� stocking pinprick loss.� Vitals VITALS Vital Signs Date Time Temp Pulse Resp B/P (MAP) Pulse Ox O2 Delivery O2 Flow Rate FiO2 08/03/19 10:51 98.5 81 17 128/54 (78) 99 Room Air 98.5 Labs Labs Laboratory Tests Test 08/03/19 00:50 08/03/19 03:10 08/03/19 07:30 08/03/19 11:34 White Blood Count 6.8 x10^3/uL (4.0-11.0) Red Blood Count 4.04 x10^6/uL (3.50-5.40) Hemoglobin 10.7 g/dL (12.0-15.5) Hematocrit 32.0 % (36.0-47.0) Mean Corpuscular Volume 79 fL (79-100) Mean Corpuscular Hemoglobin 26 pg (25-35) Mean Corpuscular Hemoglobin Concent 33 g/dL (31-37) Red Cell Distribution Width 15.3 % (11.5-14.5) Platelet Count 212 x10^3/uL (140-400) Neutrophils (%) (Auto) 55 % (31-73) Lymphocytes (%) (Auto) 35 % (24-48) Monocytes (%) (Auto) 7 % (0-9) Eosinophils (%) (Auto) 2 % (0-3) Basophils (%) (Auto) 1 % (0-3) Neutrophils # (Auto) 3.8 x10^3/uL (1.8-7.7) Lymphocytes # (Auto) 2.4 x10^3/uL (1.0-4.8) Monocytes # (Auto) 0.5 x10^3/uL (0.0-1.1) Eosinophils # (Auto) 0.1 x10^3/uL (0.0-0.7) Basophils # (Auto) 0.1 x10^3/uL (0.0-0.2) Prothrombin Time 12.0 SEC (11.7-14.0) Prothromb Time International Ratio 0.9 (0.8-1.1) Activated Partial Thromboplast Time 25 SEC (24-38) Sodium Level 143 mmol/L (136-145) Potassium Level 3.6 mmol/L (3.5-5.1) Chloride Level 105 mmol/L (98-107) Carbon Dioxide Level 28 mmol/L (21-32) Anion Gap 10 (6-14) Blood Urea Nitrogen 16 mg/dL (7-20) Creatinine 1.1 mg/dL (0.6-1.0) Estimated GFR (Cockcroft-Gault) 49.1 BUN/Creatinine Ratio 15 (6-20) Glucose Level 110 mg/dL (70-99) Calcium Level 9.2 mg/dL (8.5-10.1) Magnesium Level 1.9 mg/dL (1.8-2.4) Total Bilirubin 0.2 mg/dL (0.2-1.0) Aspartate Amino Transf (AST/SGOT) 17 U/L (15-37) Alanine Aminotransferase (ALT/SGPT) 18 U/L (14-59) Alkaline Phosphatase 82 U/L (46-116) Troponin I Quantitative < 0.017 ng/mL (0.000-0.055) Total Protein 6.7 g/dL (6.4-8.2) Albumin 3.4 g/dL (3.4-5.0) Albumin/Globulin Ratio 1.0 (1.0-1.7) Triglycerides Level 64 mg/dL (0-150) Cholesterol Level 151 mg/dL (0-200) LDL Cholesterol, Calculated 72 mg/dL (0-100) VLDL Cholesterol, Calculated 13 mg/dL (0-40) Non-HDL Cholesterol Calculated 85 mg/dL (0-129) HDL Cholesterol 66 mg/dL (40-60) Cholesterol/HDL Ratio 2.3 Thyroid Stimulating Hormone (TSH) 3.021 uIU/mL (0.358-3.74) Urine Collection Type Unknown Urine Color Yellow Urine Clarity Clear Urine pH 5.5 Urine Specific [place] 1.010 Urine Protein Negative mg/dL (NEG-TRACE) Urine Glucose (UA) Negative mg/dL (NEG) Urine Ketones (Stick) Negative mg/dL (NEG) Urine Blood Negative (NEG) Urine Nitrite Negative (NEG) Urine Bilirubin Negative (NEG) Urine Urobilinogen Dipstick 0.2 mg/dL (0.2 mg/dL) Urine Leukocyte Esterase Negative (NEG) Urine RBC 0 /HPF (0-2) Urine WBC Occ /HPF (0-4) Urine Squamous Epithelial Cells Few /LPF Urine Bacteria 0 /HPF (0-FEW) Urine Mucus Slight /LPF Glucose (Fingerstick) 116 mg/dL (70-99) 90 mg/dL (70-99) Laboratory Tests Test 08/03/19 00:50 08/03/19 03:10 08/03/19 07:30 08/03/19 11:34 White Blood Count 6.8 x10^3/uL (4.0-11.0) Red Blood Count 4.04 x10^6/uL (3.50-5.40) Hemoglobin 10.7 g/dL (12.0-15.5) Hematocrit 32.0 % (36.0-47.0) Mean Corpuscular Volume 79 fL (79-100) Mean Corpuscular Hemoglobin 26 pg (25-35) Mean Corpuscular Hemoglobin Concent 33 g/dL (31-37) Red Cell Distribution Width 15.3 % (11.5-14.5) Platelet Count 212 x10^3/uL (140-400) Neutrophils (%) (Auto) 55 % (31-73) Lymphocytes (%) (Auto) 35 % (24-48) Monocytes (%) (Auto) 7 % (0-9) Eosinophils (%) (Auto) 2 % (0-3) Basophils (%) (Auto) 1 % (0-3) Neutrophils # (Auto) 3.8 x10^3/uL (1.8-7.7) Lymphocytes # (Auto) 2.4 x10^3/uL (1.0-4.8) Monocytes # (Auto) 0.5 x10^3/uL (0.0-1.1) Eosinophils # (Auto) 0.1 x10^3/uL (0.0-0.7) Basophils # (Auto) 0.1 x10^3/uL (0.0-0.2) Prothrombin Time 12.0 SEC (11.7-14.0) Prothromb Time International Ratio 0.9 (0.8-1.1) Activated Partial Thromboplast Time 25 SEC (24-38) Sodium Level 143 mmol/L (136-145) Potassium Level 3.6 mmol/L (3.5-5.1) Chloride Level 105 mmol/L (98-107) Carbon Dioxide Level 28 mmol/L (21-32) Anion Gap 10 (6-14) Blood Urea Nitrogen 16 mg/dL (7-20) Creatinine 1.1 mg/dL (0.6-1.0) Estimated GFR (Cockcroft-Gault) 49.1 BUN/Creatinine Ratio 15 (6-20) Glucose Level 110 mg/dL (70-99) Calcium Level 9.2 mg/dL (8.5-10.1) Magnesium Level 1.9 mg/dL (1.8-2.4) Total Bilirubin 0.2 mg/dL (0.2-1.0) Aspartate Amino Transf (AST/SGOT) 17 U/L (15-37) Alanine Aminotransferase (ALT/SGPT) 18 U/L (14-59) Alkaline Phosphatase 82 U/L (46-116) Troponin I Quantitative < 0.017 ng/mL (0.000-0.055) Total Protein 6.7 g/dL (6.4-8.2) Albumin 3.4 g/dL (3.4-5.0) Albumin/Globulin Ratio 1.0 (1.0-1.7) Triglycerides Level 64 mg/dL (0-150) Cholesterol Level 151 mg/dL (0-200) LDL Cholesterol, Calculated 72 mg/dL (0-100) VLDL Cholesterol, Calculated 13 mg/dL (0-40) Non-HDL Cholesterol Calculated 85 mg/dL (0-129) HDL Cholesterol 66 mg/dL (40-60) Cholesterol/HDL Ratio 2.3 Thyroid Stimulating Hormone (TSH) 3.021 uIU/mL (0.358-3.74) Urine Collection Type Unknown Urine Color Yellow Urine Clarity Clear Urine pH 5.5 Urine Specific [place] 1.010 Urine Protein Negative mg/dL (NEG-TRACE) Urine Glucose (UA) Negative mg/dL (NEG) Urine Ketones (Stick) Negative mg/dL (NEG) Urine Blood Negative (NEG) Urine Nitrite Negative (NEG) Urine Bilirubin Negative (NEG) Urine Urobilinogen Dipstick 0.2 mg/dL (0.2 mg/dL) Urine Leukocyte Esterase Negative (NEG) Urine RBC 0 /HPF (0-2) Urine WBC Occ /HPF (0-4) Urine Squamous Epithelial Cells Few /LPF Urine Bacteria 0 /HPF (0-FEW) Urine Mucus Slight /LPF Glucose (Fingerstick) 116 mg/dL (70-99) 90 mg/dL (70-99) Images Images CT HEAD AND CERVICAL SPINE WO Date: 08/03/2019 12:45 AM Clinical Indication: Headache, dizziness, syncope, fall with head trauma Comparison: MRI C-spine 06/20/2019. CT head 09/22/2017 Technique: 5 mm axial tomographic images were obtained of the head without contrast. These were viewed on brain and bone windows. CT imaging of the cervical spine was performed without contrast. Coronal and sagittal reformatted images were performed. One or more of the following dose reduction techniques were utilized: Automated exposure control (AEC), Adjustment of mA and/or kV according to patient size, Use of iterative reconstruction technique such as ASiR, CT scan done according to ALARA and image gently/image wisely HEAD FINDINGS: The brain parenchyma is normal in attenuation. No intra- or extra-axial mass or fluid collection. No acute hemorrhage. The ventricles are normal in size, shape, and morphology. The torres-white matter junction is normal. The basilar cisterns are patent. The visualized paranasal sinuses are normal. The visualized portions of the orbits and globes are normal. The mastoid air cells are clear. No aggressive osseous lesion or fracture. CERVICAL SPINE FINDINGS: Postsurgical changes of posterior decompression and instrumentation from C4-C7. Straightening of the cervical lordosis. Trace anterolisthesis of C3-4. No acute fracture. No aggressive lytic or blastic osseous lesion. Mild multilevel degenerative disc height loss. Spinal canal and neural foramen better evaluated on recent MRI C-spine report. The thyroid gland is normal. No cervical lymphadenopathy. The visualized aerodigestive tract is unremarkable. The visualized lung apices are clear. IMPRESSION: 1. No acute intracranial process. 2. No acute osseous abnormality of the cervical spine. Assessment/Plan Assessment/Plan Impression: Given the dysarthria last night and continued vertigo, I am concerned about a brainstem stroke. Alternative explanations include variations of migraine headache, vestibular dysfunction peripherally with syncope, cardiac disease. Cervical spondylosis without myelopathy or radiculopathy. Diabetic neuropathy Recommendations: MRI of the brain I ordered CT angiogram, but she is allergic to , I will do MR angiogram Await echocardiogram Check lipids Daily aspirin Rehabilitation modalities. Also see stroke orders. Thank you for letting me help of the patient's care. JIMENA PETERSEN MD Aug 03, 2019 13:30
--- NOTE | 2019-08-03 13:34 | HP ---
ADMIT DATE: 08/03/2019 HISTORY OF PRESENT ILLNESS: This 69-year-old female who has a history of headaches, chronic pain and multiple surgeries, was sleeping in her bed when she rolled over and suddenly she became extremely dizzy. She continued to remain very dizzy and later tried to go to the bathroom and had a syncopal episode and passed out. She is not sure how long she was on the floor. Then she tried to crawl out and went a short distance and became very dizzy and had to lay on the floor again for quite some time. Finally, she was able to get help from the family who called the EMS and brought her to the Emergency Room. The patient has not taken any new medications except for 2 tablets of naproxen in last several days. She does not have any cold, cough, congestion, earache, sneezing, nasal drainage, chest pains, abdominal pain, nausea, vomiting, palpitations or any other symptoms before or after this dizziness. She continues to remain dizzy this morning. She also has more right-sided headaches. In the Emergency Room, WBC count was 6.8, hemoglobin was 10.7. Sodium 143, potassium was 3.6, magnesium was 1.9, BUN 16, creatinine 1.1, glucose 116. Troponin less than 0.017. EKG per ER note did not show any acute changes. Urinalysis was negative. CT scan of head did not show any acute abnormalities. CT scan of cervical spine showed postsurgical changes of posterior decompression and instrumentation from C4-C7. Because of her syncope and severe dizziness, the patient was admitted for further evaluation and management. REVIEW OF SYSTEMS: As noted in the history of present illness. The patient has not taken any new medications or done anything, has any other symptoms that would explain her sudden onset of dizziness. She did feel a popping in her head and neck area. Other systems reviewed and are negative. PAST MEDICAL HISTORY: The patient has a history of hypertension, hyperlipidemia, asthma, gastroesophageal reflux disease, anemia, B12 deficiency, anxiety, low back pain, osteoarthritis, fibromyalgia, rheumatoid arthritis, diabetes mellitus type 2, insulin-dependent with neuropathy, history of Meniere's disease. PAST SURGICAL HISTORY: The patient has had cataract removal, appendectomy, cholecystectomy, tonsillectomy, hysterectomy, history of cervical spine surgery and laminectomy in 06/2017 L2-L3, history of L4-L5 fusion in 2009. On 04/12/2018 and 04/15/2019, she had removal of the hardware L4, L5, S1, reoperative lumbar microdiskectomy, micro decompression with transforaminal decompression L2- L3 left, placement of hardware L2, L3, L4, L5 bilaterally and posterior lateral fusion L2, L3, L4, L5. On 04/15/2019, she had repositioning of the right L4 pedicle screw. FAMILY HISTORY: Positive for arthritis, rheumatoid arthritis, osteoporosis, and gout in mother. Family history of heart disease. SOCIAL HISTORY: No history of smoking, alcoholism or drug abuse. She is . MEDICATIONS: Reviewed and reconciled. ALLERGIES: THE PATIENT IS ALLERGIC TO IODINATED CONTRAST, IV DYE, SULFA, ACETAMINOPHEN, CEPHALEXIN, HYDROCODONE, MORPHINE, AMOXICILLIN AND CLAVULANIC ACID. PHYSICAL EXAMINATION: VITAL SIGNS: Temperature 97.7, pulse 85 per minute, respirations 17 per minute, blood pressure 150/64 mmHg. GENERAL: The patient is an elderly female who is alert, oriented x 3 and not in any acute distress. She is somewhat anxious. EYES: Pupils reacting to light. Conjunctivae are pink. Sclerae white. HEENT: Unremarkable. Does have cervical spine surgery. Decreased range of motion. JVP normal. No thyromegaly. Trachea midline. LUNGS: Clear. CARDIOVASCULAR: S1, S2 regular. ABDOMEN: Soft, nontender, no guarding, no rigidity. Bowel sounds present. EXTREMITIES: No edema. CENTRAL NERVOUS SYSTEM: Moves all extremities. No acute changes other than dizziness noted. LABORATORY FINDINGS: As noted earlier. IMPRESSION: 1. Syncope. 2. Severe dizziness, etiology not clear. 3. Hypertension. 4. Diabetes mellitus type 2, insulin-dependent with neuropathy. 5. Gastroesophageal reflux disease, history of reactive gastropathy and dilation of the esophageal stricture. 6. Anxiety. 7. Cervical and lumbar osteoarthritis with cervical stenosis and lumbar stenosis and history of surgeries on neck and lower back. 8. Hypertension. 9. Hyperlipidemia. 10. B12 deficiency anemia. 11. Asthma. 12. Fibromyalgia. 13. Anxiety. 14. History of rheumatoid arthritis. PLAN: I will replace potassium. Continue meclizine. Start physical therapy. Consult Dr. Jane for Neurology evaluation and management and Dr. Angel for cardiology evaluation and management. For details, please refer to the orders. EMELINA HERCULES MD DR: Martín JOB#: [id number] / [id number]
--- NOTE | 2019-08-03 15:36 | RAD ---
MRI Brain without contrast History: Brainstem CVA Technique: Multiplanar, multisequential noncontrast MR imaging was performed of the brain. Comparison: July 19, 2019 Findings: There is some motion degradation. There is no evidence of recent infarct or cytotoxic edema. The ventricles, sulci, and cisterns are within normal limits in size and configuration. There is no significant midline shift, intraaxial mass effect, or focal abnormal extra-axial fluid collection. There is no new significant signal abnormality of the brain parenchyma. There is preservation of the major intracranial flow-voids at the skull base. There is very minimal fluid and thickening of the left mastoid air cells.The cerebellar tonsils are normal in location. There is no significant abnormality of the pineal gland or pituitary gland. There has been lens surgery bilaterally. There is patchy minimal ethmoid air cell mucosal thickening. There is preserved marrow signal of the clivus. Impression: 1. There is no evidence of recent infarct or other new intracranial abnormality. Electronically signed by: Gamaliel Espinoza MD (08/03/2019 3:33 PM) [id number]
--- NOTE | 2019-08-03 15:44 | RAD ---
MRA Brain History: Brainstem CVA Technique: 3-D [id number] MR angiography was performed of the brain. Comparison: None Findings: Determination of any degree of stenosis is based on NASCET criteria. There is motion degradation. Both vertebral arteries constitute a basilar artery. There is visualization of segments of bilateral PICAs, AICAs, superior cerebellar arteries, and posterior communicating arteries. There may be a tiny anterior communicating artery. No significant intracranial stenosis or aneurysm is identified. There is likely mild narrowing of the proximal left A1 segment. Impression: 1. No significant intracranial stenosis or aneurysm is identified. Neck MRA without contrast History: Brainstem CVA Technique: [id number] MR angiography was performed of the neck. Comparison: None Findings: Determination of any degree of stenosis is based on NASCET criteria. There is motion degradation. Antegrade flow is demonstrated in the bilateral vertebral arteries as well as the bilateral common and internal carotid arteries. There is some medial deviation of the carotid arteries in the neck bilaterally greater on the right into the retropharyngeal region. Accurate evaluation for stenosis of the common carotid arteries is limited due to motion artifact. No significant focal stenosis is identified of the cervical internal carotid arteries. Segments of vertebral arteries are also not accurately evaluated due to signal loss from plane of blood flow on this noncontrast exam and also due to motion. Impression: 1. Exam is degraded by motion. No significant stenosis is identified of the cervical internal carotid arteries. There is medial deviation of the carotid arteries in the neck bilaterally greater on the right into the retropharyngeal region. Electronically signed by: Gamaliel Espinoza MD (08/03/2019 3:41 PM) [id number]
--- NOTE | 2019-08-03 16:00 | CARD ---
MR#: [id number] Date of Study: 08/03/2019 Ordering Physician: CHANDRA CHRISTIANSON, Referring Physician: CHANDRA CHRISTIANSON, Tech: Delores Saenz RDCS APPROVED REPORT EXAM: Two-dimensional and M-mode echocardiogram with Doppler and color Doppler. Other Information Quality : Fair INDICATION Syncope 2D DIMENSIONS RVDd2.8 (2.9-3.5cm)Left Atrium(2D)2.8 (1.6-4.0cm) IVSd0.9 (0.7-1.1cm)Aortic Root(2D)3.1 (2.0-3.7cm) LVDd4.3 (3.9-5.9cm)LVOT Diameter1.9 (1.8-2.4cm) PWd0.8 (0.7-1.1cm)LVDs2.8 (2.5-4.0cm) FS (%) 34.5 %SV54.1 ml LVEF(%)60.0 (>50%) Aortic Valve AoV Peak Vladislav.114.3cm/sAoV VTI20.7cm AO Peak GR.5.2mmHgLVOT Peak Vladislav.84.4cm/s LVOT VTI 19.03cmAO Mean GR.3mmHg JAYY (VMAX)2.57av4OJT (VTI)2.67cm2 Mitral Valve MV E Eppgasxd40.5cm/sMV DECEL TJGL558xh MV A Wkqglxsk535.5cm/sMV HZC46us E/A Ratio0.7MVA (PHT)2.95cm2 TDI E/Lateral E'11.2E/Medial E'10.1 Tricuspid Valve TR P. Yhfbhoep774ti/sRAP PYTYDLWX8siTz TR Peak Gr.35upWfZQBE70mhOd Pulmonary Vein S1 Yruxohka98.0cm/sD2 Hnuzyusd87.3cm/s LEFT VENTRICLE The left ventricle is normal size. There is normal left ventricular wall thickness. The left ventricu lar systolic function is normal. The Ejection Fraction is 55-60%. There is normal LV segmental wall m otion. Transmitral Doppler flow pattern is Grade I-abnormal relaxation pattern. RIGHT VENTRICLE The right ventricle is normal size. The right ventricular systolic function is normal. ATRIA The left atrium size is normal. The right atrium size is normal. The interatrial septum is intact wit h no evidence for an atrial septal defect or patent foramen ovale as noted on 2-D or Doppler imaging. AORTIC VALVE The aortic valve is mildly thickened but opens well. Doppler and Color Flow revealed no significant a ortic regurgitation. There is no significant aortic valvular stenosis. MITRAL VALVE The mitral valve is calcified but opens well. There is no evidence of mitral valve prolapse. There is no mitral valve stenosis. Doppler and Color-flow revealed mild eccentric mitral regurgitation. TRICUSPID VALVE The tricuspid valve is normal in structure and function. Doppler and Color Flow revealed trace to mil d tricuspid regurgitation. There is mild pulmonary hypertension. The PA pressure was estimated at 33 mmHg. There is no tricuspid valve stenosis. PULMONIC VALVE The pulmonic valve is not well visualized. Doppler and Color Flow revealed no pulmonic valvular regur gitation. There is no pulmonic valvular stenosis. GREAT VESSELS The aortic root is normal in size. The ascending aorta is not well seen. The IVC is normal in size an d collapses >50% with inspiration. PERICARDIAL EFFUSION There is no evidence of significant pericardial effusion. Critical Notification Critical Value: No <Conclusion> The left ventricular systolic function is normal. The Ejection Fraction is 55-60%. There is normal LV segmental wall motion. Transmitral Doppler flow pattern is Grade I-abnormal relaxation pattern. Mild eccentric mitral regurgitation. Trace to mild tricuspid regurgitation. There is mild pulmonary hypertension. The PA pressure was estimated at 33 mmHg. There is no evidence of significant pericardial effusion. Signed by : Ayden Angel, Electronically Approved : 08/03/2019 16:00:30
[2019-08-03] MEDS ORDERED: DULoxetine HCL 30 MG CAPSULE.DR PO SCH (21:00)
[2019-08-03] MEDS ORDERED: MONTELUKAST SODIUM 10 MG TABLET. PO SCH (21:00)
[2019-08-03] MEDS: HYDROXYCHLOROQUINE 200 MG TABLET PO SCH (21:06)
[2019-08-04 03:18] VITALS: BP 135/49
[2019-08-04 03:55] LABS: BASO # 0.1 x10^3/uL (0.0-0.2); BASO % 1 % (0-3); EOS # 0.1 x10^3/uL (0.0-0.7); EOS % 1 % (0-3); HEMATOCRIT 33.4 % (36.0-47.0); LYMPH # 2.5 x10^3/uL (1.0-4.8); LYMPH % 38 % (24-48); MEAN CORPUSCULAR HEMOGLOBIN 26 pg (25-35); MEAN CORPUSCULAR HGB CONC 33 g/dL (31-37); MEAN CORPUSCULAR VOLUME 80 fL (79-100); MONO # 0.5 x10^3/uL (0.0-1.1); MONO % 8 % (0-9); NEUT # 3.5 x10^3/uL (1.8-7.7); NEUT % 52 % (31-73); PLATELET COUNT 229 x10^3/uL (140-400); RED BLOOD COUNT 4.19 x10^6/uL (3.50-5.40); RED CELL DISTRIBUTION WIDTH 15.6 % (11.5-14.5); WHITE BLOOD COUNT 6.7 x10^3/uL (4.0-11.0)
[2019-08-04 04:11] LABS: ALBUMIN 3.4 g/dL (3.4-5.0); CALCIUM 8.9 mg/dL (8.5-10.1); CREATININE 1.1 mg/dL (0.6-1.0); GFR 49.1; POTASSIUM 4.3 mmol/L (3.5-5.1); TOTAL BILIRUBIN 0.3 mg/dL (0.2-1.0); TOTAL PROTEIN 6.8 g/dL (6.4-8.2)
[2019-08-04] MEDS: INSULIN LISPRO 300 UNITS/3 ML VIAL. SQ SCH (07:30)
[2019-08-04 07:44] VITALS: BP_SYST 129; BP_SYST 133; BP_DIAS 61; BP_DIAS 67; BP_DIAS 74
[2019-08-04] MEDS ORDERED: ASPIRIN ENTERIC COATED 325 MG TABLET.DR. PO SCH (08:00)
[2019-08-04] MEDS: FLUTICASONE 50MCG/NASAL SPRAY 16GM BOTTLE. NS SCH (09:00)
[2019-08-04] MEDS: HYDROXYCHLOROQUINE 200 MG TABLET PO SCH (09:24)
[2019-08-04] MEDS: metFORMIN 500 MG TABLET PO SCH (09:24)
[2019-08-04] MEDS: TOPIRAMATE 25 MG TABLET. PO SCH (09:24)
[2019-08-04] MEDS: clonazePAM 0.5 MG TABLET PO SCH (09:24)
[2019-08-04] MEDS: LISINOPRIL 10 MG TABLET PO SCH (09:25)
--- NOTE | 2019-08-04 10:21 | PDOC3 ---
IM DISCHARGE SUMMARY Date of Admission Date of Admission Date of Admission: Aug 03, 2019 at 03:00 Date of Discharge Date of Discharge August 04, 2019 Primary Diagnosis Primary Diagnosis 1. Syncope. 2. Severe dizziness, etiology not clear. 3. Hypertension. 4. Diabetes mellitus type 2, insulin-dependent with neuropathy. 5. Gastroesophageal reflux disease, history of reactive gastropathy and dilation of the esophageal stricture. 6. Anxiety. 7. Cervical and lumbar osteoarthritis with cervical stenosis and lumbar stenosis and history of surgeries on neck and lower back. 8. Hypertension. 9. Hyperlipidemia. 10. B12 deficiency anemia. 11. Asthma. 12. Fibromyalgia. 13. Anxiety. 14. History of rheumatoid arthritis. Consults Consults Ayden Angel MD; Edgar Jane MD Labs Labs Laboratory Tests Test 08/03/19 11:34 08/03/19 16:31 08/03/19 20:37 08/04/19 02:40 Glucose (Fingerstick) 90 mg/dL (70-99) 82 mg/dL (70-99) 107 mg/dL (70-99) H White Blood Count 6.7 x10^3/uL (4.0-11.0) Red Blood Count 4.19 x10^6/uL (3.50-5.40) Hemoglobin 11.0 g/dL (12.0-15.5) L Hematocrit 33.4 % (36.0-47.0) L Mean Corpuscular Volume 80 fL (79-100) Mean Corpuscular Hemoglobin 26 pg (25-35) Mean Corpuscular Hemoglobin Concent 33 g/dL (31-37) Red Cell Distribution Width 15.6 % (11.5-14.5) H Platelet Count 229 x10^3/uL (140-400) Neutrophils (%) (Auto) 52 % (31-73) Lymphocytes (%) (Auto) 38 % (24-48) Monocytes (%) (Auto) 8 % (0-9) Eosinophils (%) (Auto) 1 % (0-3) Basophils (%) (Auto) 1 % (0-3) Neutrophils # (Auto) 3.5 x10^3/uL (1.8-7.7) Lymphocytes # (Auto) 2.5 x10^3/uL (1.0-4.8) Monocytes # (Auto) 0.5 x10^3/uL (0.0-1.1) Eosinophils # (Auto) 0.1 x10^3/uL (0.0-0.7) Basophils # (Auto) 0.1 x10^3/uL (0.0-0.2) Sodium Level 144 mmol/L (136-145) Potassium Level 4.3 mmol/L (3.5-5.1) Chloride Level 108 mmol/L (98-107) H Carbon Dioxide Level 27 mmol/L (21-32) Anion Gap 9 (6-14) Blood Urea Nitrogen 15 mg/dL (7-20) Creatinine 1.1 mg/dL (0.6-1.0) H Estimated GFR (Cockcroft-Gault) 49.1 BUN/Creatinine Ratio 14 (6-20) Glucose Level 99 mg/dL (70-99) Calcium Level 8.9 mg/dL (8.5-10.1) Total Bilirubin 0.3 mg/dL (0.2-1.0) Aspartate Amino Transferase (AST) 17 U/L (15-37) Alanine Aminotransferase (ALT) 19 U/L (14-59) Alkaline Phosphatase 79 U/L (46-116) Total Protein 6.8 g/dL (6.4-8.2) Albumin 3.4 g/dL (3.4-5.0) Albumin/Globulin Ratio 1.0 (1.0-1.7) Test 08/04/19 07:17 Glucose (Fingerstick) 103 mg/dL (70-99) H Laboratory Tests 08/04/19 02:40 Laboratory Tests 08/04/19 02:40 Brief hospital course Brief hospital course This 69-year-old female who has a history of headaches, chronic pain and multiple surgeries, was sleeping in her bed when she rolled over and suddenly she became extremely dizzy. She continued to remain very dizzy and later tried to go to the bathroom and had a syncopal episode and passed out. She is not sure how long she was on the floor. Then she tried to crawl out and went a short distance and became very dizzy and had to lay on the floor again for quite some time. Finally, she was able to get help from the family who called the EMS and brought her to the Emergency Room. The patient has not taken any new medications except for 2 tablets of naproxen in last several days. She does not have any cold, cough, congestion, earache, sneezing, nasal drainage, chest pains, abdominal pain, nausea, vomiting, palpitations or any other symptoms before or after this dizziness. She continues to remain dizzy this morning. She also has more right-sided headaches. In the Emergency Room, WBC count was 6.8, hemoglobin was 10.7. Sodium 143, potassium was 3.6, magnesium was 1.9, BUN 16, creatinine 1.1, glucose 116. Troponin less than 0.017. EKG per ER note did not show any acute changes. Urinalysis was negative. CT scan of head did not show any acute abnormalities. CT scan of cervical spine showed postsurgical changes of posterior decompression and instrumentation from C4-C7. Because of her syncope and severe dizziness, the patient was admitted for further evaluation and management. For more details regarding the past history, family history, social history, surgical history and other details, please refer to History and Physical. I will replace potassium. Continue meclizine. Start physical therapy. Consult Dr. Jane for Neurology evaluation and management and Dr. Angel for cardiology evaluation and management. For details, please refer to the orders. Patient was seen by Dr. Gonzalez for neurology evaluation and management. There was a concern for brain stem stroke. MRI of the brain and MR angiography of the neck and brain did not show any acute changes. Echocardiogram showed grade 1 diastolic dysfunction and ejection fraction of 55-60%. MRA Brain and neck 1. Exam is degraded by motion. No significant stenosis is identified of the cervical internal carotid arteries. There is medial deviation of the carotid arteries in the neck bilaterally greater on the right into the retropharyngeal region. MRI Brain 1. There is no evidence of recent infarct or other new intracranial abnormality. Hypokalemia- replaced K. Dizziness is much better.It may be due to Migraine.She walks with cane as needed. As patient continues to do better we'll discharge her home with home . Order meclizine as needed. Hold Lasix and Tramadol. Medications Current Medications Medications (Trade) Dose Ordered Sig/Lainey Route PRN Reason Start Time Stop Time Status Last Admin Dose Admin Duloxetine HCl (Cymbalta) 60 mg HS PO 08/03/19 21:00 08/03/19 21:07 Hydroxychloroquine Sulfate (Plaquenil) 400 mg BID PO 08/03/19 21:00 08/04/19 09:26 Montelukast Sodium (Singulair) 10 mg HS PO 08/03/19 21:00 08/03/19 21:07 Aspirin (Ecotrin) 325 mg DAILYWBKFT PO 08/04/19 08:00 08/04/19 09:26 Medications reviewed and reconciled for discharge. Allergy Allergies Coded Allergies Type Severity Reaction Last Updated Verified Iodinated Contrast Media Allergy Intermediate OK with premeds 03/15/19 Yes Sulfa (Sulfonamide Antibiotics) Allergy Intermediate 03/15/19 Yes acetaminophen Allergy Intermediate Itching 03/15/19 Yes cephalexin Allergy Intermediate Nausea and Vomiting 04/12/18 Yes hydrocodone Allergy Intermediate Itching 03/15/19 Yes morphine Allergy Intermediate 03/15/19 Yes amoxicillin Adverse Reaction Intermediate Nausea and Vomiting 04/12/18 Yes clavulanic acid Adverse Reaction Intermediate Nausea and Vomiting 04/12/18 Yes Follow up in 5 days. DISPOSITION: Home Comments Discharge Management - 35 minutes. For other details please refer to discharge instructions EMELINA HERCULES MD Aug 04, 2019 10:21
[2019-08-04] MEDS ORDERED: MECL12.52 PO (10:25)
--- NOTE | 2019-08-04 10:27 | DISCH ---
DISCHARGE INSTRUCTIONS Condition on Discharge Condition on Discharge: Stable Activity After Discharge Activity Instructions for Disc: Activity as tolerated Weight Bearing Status after Di: As tolerated Diet after Discharge Diet after Discharge: Cardiac (ADA), Diabetic No Calorie Level Additional Diet Restrictions: 0800 Yoandy ADA Diet Texture: Regular Liquid Texture: Thin Liquid Checks after Discharge Checks after discharge: Check blood press - daily, Check blood sugar, ac/hs Contacting the DR. after DC Call your doctor for: Concerns you may have Follow-Up Follow up with: Dr.Pratip Ferguson in 5 days Treatment/Equipment after DC Adaptive Equipment Issued: EMELINA Lehman MD Aug 04, 2019 10:26
[2019-08-04 11:39] VITALS: BP 124/55
--- NOTE | 2019-08-04 12:19 | NUR ---
Discharge Note: EMILY MONTIEL [address] [place] [address] Discharge instructions and discharge home medications reviewed with Patient and a copy given. All questions have been answered and understanding verbalized. The following instructions and handouts were given: Dizziness, Meclizine, f/u with Dr. Ferguson Discontinued lines and drains: 1 x PIV intact Patient discharged to home with spouse
--- NOTE | 2019-08-04 12:25 | PDOC ---
CHANDRA CHRISTIANSON [employer] 08/04/19 1225: CARDIO Progress Notes Date and Time Date of Service 08/04/19 Time of Evaluation 1210 Subjective Subjective: No Chest Pain, No shortness of breath, No Palpitations Vitals Vitals Vital Signs Date Time Temp Pulse Resp B/P (MAP) Pulse Ox O2 Delivery O2 Flow Rate FiO2 08/04/19 11:39 97.7 72 18 124/55 (78) 100 Room Air 97.7 Weight Weight [ ] Input and Output Intake and Output Intake and Output 08/04/19 07:00 Intake Total 250 ml Balance 250 ml Intake Oral 250 ml # Voids 1 Laboratory Labs Laboratory Tests Test 08/03/19 16:31 08/03/19 20:37 08/04/19 02:40 08/04/19 07:17 Glucose (Fingerstick) 82 mg/dL (70-99) 107 mg/dL (70-99) 103 mg/dL (70-99) White Blood Count 6.7 x10^3/uL (4.0-11.0) Red Blood Count 4.19 x10^6/uL (3.50-5.40) Hemoglobin 11.0 g/dL (12.0-15.5) Hematocrit 33.4 % (36.0-47.0) Mean Corpuscular Volume 80 fL (79-100) Mean Corpuscular Hemoglobin 26 pg (25-35) Mean Corpuscular Hemoglobin Concent 33 g/dL (31-37) Red Cell Distribution Width 15.6 % (11.5-14.5) Platelet Count 229 x10^3/uL (140-400) Neutrophils (%) (Auto) 52 % (31-73) Lymphocytes (%) (Auto) 38 % (24-48) Monocytes (%) (Auto) 8 % (0-9) Eosinophils (%) (Auto) 1 % (0-3) Basophils (%) (Auto) 1 % (0-3) Neutrophils # (Auto) 3.5 x10^3/uL (1.8-7.7) Lymphocytes # (Auto) 2.5 x10^3/uL (1.0-4.8) Monocytes # (Auto) 0.5 x10^3/uL (0.0-1.1) Eosinophils # (Auto) 0.1 x10^3/uL (0.0-0.7) Basophils # (Auto) 0.1 x10^3/uL (0.0-0.2) Sodium Level 144 mmol/L (136-145) Potassium Level 4.3 mmol/L (3.5-5.1) Chloride Level 108 mmol/L (98-107) Carbon Dioxide Level 27 mmol/L (21-32) Anion Gap 9 (6-14) Blood Urea Nitrogen 15 mg/dL (7-20) Creatinine 1.1 mg/dL (0.6-1.0) Estimated GFR (Cockcroft-Gault) 49.1 BUN/Creatinine Ratio 14 (6-20) Glucose Level 99 mg/dL (70-99) Calcium Level 8.9 mg/dL (8.5-10.1) Total Bilirubin 0.3 mg/dL (0.2-1.0) Aspartate Amino Transf (AST/SGOT) 17 U/L (15-37) Alanine Aminotransferase (ALT/SGPT) 19 U/L (14-59) Alkaline Phosphatase 79 U/L (46-116) Total Protein 6.8 g/dL (6.4-8.2) Albumin 3.4 g/dL (3.4-5.0) Albumin/Globulin Ratio 1.0 (1.0-1.7) Test 08/04/19 11:15 Glucose (Fingerstick) 100 mg/dL (70-99) Physical Exam HEENT: Neck Supple W Full Motion Chest: Symmetric LUNGS: Clear to Auscultation Heart: S1S2, RRR Abdomen: Soft N/T Extremities: No Edema Neurology: alert, oriented, follow commands Assessment Assessment 1. Dizziness, syncope, dysarthria. CT and MRI without acute findings. Resolved. No acute events noted on tele. Echo showed normal LV function without any significant structural abnormalities 2. H/o vertigo. Follows with Dr. Jane. 2. Hypertension; controlled 3. Diabetes, II; as per PCP 4. DDD Recommendations Consider outpatient event monitor Supportive care Follow neuro KAMINI Kirkland MD 08/04/192025: CARDIO Progress Notes Assessment Assessment Patient seen and examined. Agree with COREMAKER PIPE's assessment and plan. 2D echo showed normal LVF Tele did not show any significant arrhythmias Plan event monitor as outpatient CHANDRA CHRISTIANSON APRN Aug 04, 2019 12:25 KAMINI SALCEDO MD Aug 04, 2019 20:26
--- NOTE | 2019-08-04 13:20 | PDOC ---
PROGRESS NOTES Assessment Problems Medical Problems: (1) Cervical osteoarthritis Status: Chronic (2) Dizziness Status: Acute (3) GERD (gastroesophageal reflux disease) Status: Chronic (4) HLD (hyperlipidemia) Status: Chronic (5) Lumbar stenosis Status: Chronic (6) Osteoarthritis of lumbar spine Status: Chronic (7) Syncope and collapse Status: Acute Worrisome symptoms of brainstem stroke, workup negative. Therefore, consider variations of migraine headache, vestibular dysfunction peripherally with syncope, cardiac disease. Cervical spondylosis without myelopathy or radiculopathy. Diabetic neuropathy Favorable lipid profile Plan Follow-up with Dr. Jane as scheduled, she may consider increasing topiramate Patient will also follow-up with her travel specialist to check her vestibular function Daily aspirin Okay for discharge Subjective Feels much better, wants to go home Objective Vital Signs Date Time Temp Pulse Resp B/P (MAP) Pulse Ox O2 Delivery O2 Flow Rate FiO2 08/04/19 11:39 97.7 72 18 124/55 (78) 100 Room Air 97.7 Intake and Output 08/04/19 06:59 Intake Total 250 ml Balance 250 ml Intake Oral 250 ml # Voids 1 PHYSICAL EXAM Alert. Oriented to time, place and person. PERRL. EOMI. CN: no focal findings. Muscle tone: normal. Muscle strength:5/5 DTR: 2+ Plantar reflex: flexor Gait: not examined in bed. Sensory exam: normal. No cerebellar signs elicited. Review of Relevant I have reviewed the following items wenceslao (where applicable) has been applied. Labs Laboratory Tests Test 08/03/19 00:50 08/03/19 03:10 08/03/19 07:30 08/03/19 11:34 White Blood Count 6.8 x10^3/uL (4.0-11.0) Red Blood Count 4.04 x10^6/uL (3.50-5.40) Hemoglobin 10.7 g/dL (12.0-15.5) Hematocrit 32.0 % (36.0-47.0) Mean Corpuscular Volume 79 fL (79-100) Mean Corpuscular Hemoglobin 26 pg (25-35) Mean Corpuscular Hemoglobin Concent 33 g/dL (31-37) Red Cell Distribution Width 15.3 % (11.5-14.5) Platelet Count 212 x10^3/uL (140-400) Neutrophils (%) (Auto) 55 % (31-73) Lymphocytes (%) (Auto) 35 % (24-48) Monocytes (%) (Auto) 7 % (0-9) Eosinophils (%) (Auto) 2 % (0-3) Basophils (%) (Auto) 1 % (0-3) Neutrophils # (Auto) 3.8 x10^3/uL (1.8-7.7) Lymphocytes # (Auto) 2.4 x10^3/uL (1.0-4.8) Monocytes # (Auto) 0.5 x10^3/uL (0.0-1.1) Eosinophils # (Auto) 0.1 x10^3/uL (0.0-0.7) Basophils # (Auto) 0.1 x10^3/uL (0.0-0.2) Prothrombin Time 12.0 SEC (11.7-14.0) Prothromb Time International Ratio 0.9 (0.8-1.1) Activated Partial Thromboplast Time 25 SEC (24-38) Sodium Level 143 mmol/L (136-145) Potassium Level 3.6 mmol/L (3.5-5.1) Chloride Level 105 mmol/L (98-107) Carbon Dioxide Level 28 mmol/L (21-32) Anion Gap 10 (6-14) Blood Urea Nitrogen 16 mg/dL (7-20) Creatinine 1.1 mg/dL (0.6-1.0) Estimated GFR (Cockcroft-Gault) 49.1 BUN/Creatinine Ratio 15 (6-20) Glucose Level 110 mg/dL (70-99) Calcium Level 9.2 mg/dL (8.5-10.1) Magnesium Level 1.9 mg/dL (1.8-2.4) Total Bilirubin 0.2 mg/dL (0.2-1.0) Aspartate Amino Transf (AST/SGOT) 17 U/L (15-37) Alanine Aminotransferase (ALT/SGPT) 18 U/L (14-59) Alkaline Phosphatase 82 U/L (46-116) Troponin I Quantitative < 0.017 ng/mL (0.000-0.055) Total Protein 6.7 g/dL (6.4-8.2) Albumin 3.4 g/dL (3.4-5.0) Albumin/Globulin Ratio 1.0 (1.0-1.7) Triglycerides Level 64 mg/dL (0-150) Cholesterol Level 151 mg/dL (0-200) LDL Cholesterol, Calculated 72 mg/dL (0-100) VLDL Cholesterol, Calculated 13 mg/dL (0-40) Non-HDL Cholesterol Calculated 85 mg/dL (0-129) HDL Cholesterol 66 mg/dL (40-60) Cholesterol/HDL Ratio 2.3 Thyroid Stimulating Hormone (TSH) 3.021 uIU/mL (0.358-3.74) Urine Collection Type Unknown Urine Color Yellow Urine Clarity Clear Urine pH 5.5 Urine Specific [place] 1.010 Urine Protein Negative mg/dL (NEG-TRACE) Urine Glucose (UA) Negative mg/dL (NEG) Urine Ketones (Stick) Negative mg/dL (NEG) Urine Blood Negative (NEG) Urine Nitrite Negative (NEG) Urine Bilirubin Negative (NEG) Urine Urobilinogen Dipstick 0.2 mg/dL (0.2 mg/dL) Urine Leukocyte Esterase Negative (NEG) Urine RBC 0 /HPF (0-2) Urine WBC Occ /HPF (0-4) Urine Squamous Epithelial Cells Few /LPF Urine Bacteria 0 /HPF (0-FEW) Urine Mucus Slight /LPF Glucose (Fingerstick) 116 mg/dL (70-99) 90 mg/dL (70-99) Test 08/03/19 16:31 08/03/19 20:37 08/04/19 02:40 08/04/19 07:17 Glucose (Fingerstick) 82 mg/dL (70-99) 107 mg/dL (70-99) 103 mg/dL (70-99) White Blood Count 6.7 x10^3/uL (4.0-11.0) Red Blood Count 4.19 x10^6/uL (3.50-5.40) Hemoglobin 11.0 g/dL (12.0-15.5) Hematocrit 33.4 % (36.0-47.0) Mean Corpuscular Volume 80 fL (79-100) Mean Corpuscular Hemoglobin 26 pg (25-35) Mean Corpuscular Hemoglobin Concent 33 g/dL (31-37) Red Cell Distribution Width 15.6 % (11.5-14.5) Platelet Count 229 x10^3/uL (140-400) Neutrophils (%) (Auto) 52 % (31-73) Lymphocytes (%) (Auto) 38 % (24-48) Monocytes (%) (Auto) 8 % (0-9) Eosinophils (%) (Auto) 1 % (0-3) Basophils (%) (Auto) 1 % (0-3) Neutrophils # (Auto) 3.5 x10^3/uL (1.8-7.7) Lymphocytes # (Auto) 2.5 x10^3/uL (1.0-4.8) Monocytes # (Auto) 0.5 x10^3/uL (0.0-1.1) Eosinophils # (Auto) 0.1 x10^3/uL (0.0-0.7) Basophils # (Auto) 0.1 x10^3/uL (0.0-0.2) Sodium Level 144 mmol/L (136-145) Potassium Level 4.3 mmol/L (3.5-5.1) Chloride Level 108 mmol/L (98-107) Carbon Dioxide Level 27 mmol/L (21-32) Anion Gap 9 (6-14) Blood Urea Nitrogen 15 mg/dL (7-20) Creatinine 1.1 mg/dL (0.6-1.0) Estimated GFR (Cockcroft-Gault) 49.1 BUN/Creatinine Ratio 14 (6-20) Glucose Level 99 mg/dL (70-99) Calcium Level 8.9 mg/dL (8.5-10.1) Total Bilirubin 0.3 mg/dL (0.2-1.0) Aspartate Amino Transf (AST/SGOT) 17 U/L (15-37) Alanine Aminotransferase (ALT/SGPT) 19 U/L (14-59) Alkaline Phosphatase 79 U/L (46-116) Total Protein 6.8 g/dL (6.4-8.2) Albumin 3.4 g/dL (3.4-5.0) Albumin/Globulin Ratio 1.0 (1.0-1.7) Test 08/04/19 11:15 Glucose (Fingerstick) 100 mg/dL (70-99) Laboratory Tests Test 08/03/19 16:31 08/03/19 20:37 08/04/19 02:40 08/04/19 07:17 Glucose (Fingerstick) 82 mg/dL (70-99) 107 mg/dL (70-99) 103 mg/dL (70-99) White Blood Count 6.7 x10^3/uL (4.0-11.0) Red Blood Count 4.19 x10^6/uL (3.50-5.40) Hemoglobin 11.0 g/dL (12.0-15.5) Hematocrit 33.4 % (36.0-47.0) Mean Corpuscular Volume 80 fL (79-100) Mean Corpuscular Hemoglobin 26 pg (25-35) Mean Corpuscular Hemoglobin Concent 33 g/dL (31-37) Red Cell Distribution Width 15.6 % (11.5-14.5) Platelet Count 229 x10^3/uL (140-400) Neutrophils (%) (Auto) 52 % (31-73) Lymphocytes (%) (Auto) 38 % (24-48) Monocytes (%) (Auto) 8 % (0-9) Eosinophils (%) (Auto) 1 % (0-3) Basophils (%) (Auto) 1 % (0-3) Neutrophils # (Auto) 3.5 x10^3/uL (1.8-7.7) Lymphocytes # (Auto) 2.5 x10^3/uL (1.0-4.8) Monocytes # (Auto) 0.5 x10^3/uL (0.0-1.1) Eosinophils # (Auto) 0.1 x10^3/uL (0.0-0.7) Basophils # (Auto) 0.1 x10^3/uL (0.0-0.2) Sodium Level 144 mmol/L (136-145) Potassium Level 4.3 mmol/L (3.5-5.1) Chloride Level 108 mmol/L (98-107) Carbon Dioxide Level 27 mmol/L (21-32) Anion Gap 9 (6-14) Blood Urea Nitrogen 15 mg/dL (7-20) Creatinine 1.1 mg/dL (0.6-1.0) Estimated GFR (Cockcroft-Gault) 49.1 BUN/Creatinine Ratio 14 (6-20) Glucose Level 99 mg/dL (70-99) Calcium Level 8.9 mg/dL (8.5-10.1) Total Bilirubin 0.3 mg/dL (0.2-1.0) Aspartate Amino Transf (AST/SGOT) 17 U/L (15-37) Alanine Aminotransferase (ALT/SGPT) 19 U/L (14-59) Alkaline Phosphatase 79 U/L (46-116) Total Protein 6.8 g/dL (6.4-8.2) Albumin 3.4 g/dL (3.4-5.0) Albumin/Globulin Ratio 1.0 (1.0-1.7) Test 08/04/19 11:15 Glucose (Fingerstick) 100 mg/dL (70-99) Medications Current Medications Meclizine HCl (Antivert) 25 mg 1X ONCE PO Last administered on 08/03/19 02:01; Start 08/03/19 at 01:45; Stop 08/03/19 at 01:46; Status DC Ondansetron HCl (Zofran) 8 mg 1X ONCE IV Last administered on 08/03/19at 02:01; Start 08/03/19 at 01:45; Stop 08/03/19 at 01:46; Status DC Ondansetron HCl (Zofran) 4 mg PRN Q8HRS PRN IV NAUSEA/VOMITING; Start 08/03/19 at 03:15; Stop 08/03/19 at 10:00; Status DC Clonazepam (KlonoPIN) 0.5 mg BID PO Last administered on 08/04/19 09:26; Start 08/03/19 at 10:00 Duloxetine HCl (Cymbalta) 60 mg HS PO Last administered on 08/03/19 21:07; Start 08/03/19 at 21:00 Hydroxychloroquine Sulfate (Plaquenil) 400 mg BID PO Last administered on 08/04/19 09:26; Start 08/03/19 at 21:00 Lisinopril (Prinivil) 10 mg DAILY PO Last administered on 08/04/19 09:26; Start 08/03/19 at 10:00 Metformin HCl (Glucophage) 1,000 mg BIDWMEALS PO Last administered on 08/04/19 09:26; Start 08/03/19 at 10:00 Montelukast Sodium (Singulair) 10 mg HS PO Last administered on 9/11/19at 21:07; Start 08/03/19 at 21:00 Topiramate (Topamax) 25 mg BID PO Last administered on 08/04/19at 09:26; Start 08/03/19 at 10:00 Fluticasone Propionate (Flonase) 2 spray DAILY NS ; Start 08/03/19 at 10:00 Insulin Human Lispro (HumaLOG) 0-8 UNITS BIDBFRMEAL SQ ; Start 08/03/19 at 10:00 Potassium Chloride (Klor-Con) 20 meq 1X ONCE PO Last administered on 08/03/19at 12:03; Start 08/03/19 at 10:00; Stop 08/03/19 at 10:01; Status DC Meclizine HCl (Antivert) 25 mg PRN Q6HRS PRN PO DIZZINESS; Start 08/03/19 at 10:00 Ondansetron HCl (Zofran) 4 mg PRN Q6HRS PRN IV NAUSEA/VOMITING; Start 08/03/19 at 10:00 Fentanyl Citrate (Fentanyl 2ml Vial) 25 mcg PRN Q4HRS PRN IV PAIN MODERATE TO SEVERE Last administered on 08/03/19at 21:07; Start 08/03/19 at 10:00 Aspirin (Ecotrin) 325 mg DAILYWBKFT PO Last administered on 08/04/19at 09:26; Start 08/04/19 at 08:00 Aspirin (Aspirin Rectal Supp) 300 mg PRN DAILY PRN [place] IF UNABLE TO TAKE PO; Start 08/03/19 at 12:45 Active Scripts Active Meclizine Hcl 12.5 Mg Tablet 25 Mg PO PRN Q6HRS PRN 15 Days Prinivil (Lisinopril) 10 Mg Tablet 10 Mg PO DAILY Cymbalta (Duloxetine Hcl) 30 Mg Capsule. 60 Mg PO HS Reported Montelukast Sodium Tablet (Montelukast Sodium) 10 Mg Tablet 10 Mg PO HS Novolin 70-30 100 Unit/Ml Vial (Hum Insulin Nph/Reg Insulin Hm) 100 Unit/1 Ml Vial 22 Unit SQ DAILY08 Flonase Allergy Relief (Fluticasone Propionate) 9.9 Ml [place].susp 2 Sprays NS DAILY Topiramate 25 Mg Tablet 1 Tab PO BID [Vitamin B12 Inj] Q2WKS Metformin Hcl 500 Mg Tablet 1,000 Mg PO BIDWMEALS Montelukast Sodium Tablet (Montelukast Sodium) 10 Mg Tablet 1 Tab PO HS Plaquenil (Hydroxychloroquine Sulfate) 200 Mg Tablet 400 Mg PO BID Clonazepam (Clonazepam) 0.5 Mg Tablet 1 Tab PO BID Vitals/I & O Vital Sign - Last 24 Hours 08/03/19 08/03/19 08/03/19 08/03/19 16:12 19:10 22:43 23:44 Temp 98.3 98.2 98.8 98.3 98.2 98.8 Pulse 77 89 85 Resp 17 18 18 16 B/P (MAP) 124/46 (72) 163/60 (94) 137/49 (78) Pulse Ox 99 97 97 95 O2 Delivery Room Air Room Air Room Air Room Air 08/04/19 08/04/19 08/04/19 08/04/19 03:18 07:44 07:44 07:44 Temp 98.3 98.6 98.3 98.6 Pulse 81 87 87 91 Resp 16 18 B/P (MAP) 135/49 (77) 129/74 (92) 129/61 (83) 133/67 (89) Pulse Ox 95 98 O2 Delivery Room Air Room Air 08/04/19 08/04/19 09:26 11:39 Temp 97.7 97.7 Pulse 91 72 Resp 18 B/P (MAP) 133/67 124/55 (78) Pulse Ox 100 O2 Delivery Room Air Intake and Output 08/03/19 08/03/19 08/04/19 14:59 22:59 06:59 Intake Total 150 ml 100 ml Balance 150 ml 100 ml Images MRI Brain without contrast History: Brainstem CVA Technique: Multiplanar, multisequential noncontrast MR imaging was performed of the brain. Comparison: July 19, 2019 Findings: There is some motion degradation. There is no evidence of recent infarct or cytotoxic edema. The ventricles, sulci, and cisterns are within normal limits in size and configuration. There is no significant midline shift, intraaxial mass effect, or focal abnormal extra-axial fluid collection. There is no new significant signal abnormality of the brain parenchyma. There is preservation of the major intracranial flow-voids at the skull base. There is very minimal fluid and thickening of the left mastoid air cells.The cerebellar tonsils are normal in location. There is no significant abnormality of the pineal gland or pituitary gland. There has been lens surgery bilaterally. There is patchy minimal ethmoid air cell mucosal thickening. There is preserved marrow signal of the clivus. Impression: 1. There is no evidence of recent infarct or other new intracranial abnormality. MRA Brain History: Brainstem CVA Technique: 3-D [id number] MR angiography was performed of the brain. Comparison: None Findings: Determination of any degree of stenosis is based on NASCET criteria. There is motion degradation. Both vertebral arteries constitute a basilar artery. There is visualization of segments of bilateral PICAs, AICAs, superior cerebellar arteries, and posterior communicating arteries. There may be a tiny anterior communicating artery. No significant intracranial stenosis or aneurysm is identified. There is likely mild narrowing of the proximal left A1 segment. Impression: 1. No significant intracranial stenosis or aneurysm is identified. Neck MRA without contrast History: Brainstem CVA Technique: [id number] MR angiography was performed of the neck. Comparison: None Findings: Determination of any degree of stenosis is based on NASCET criteria. There is motion degradation. Antegrade flow is demonstrated in the bilateral vertebral arteries as well as the bilateral common and internal carotid arteries. There is some medial deviation of the carotid arteries in the neck bilaterally greater on the right into the retropharyngeal region. Accurate evaluation for stenosis of the common carotid arteries is limited due to motion artifact. No significant focal stenosis is identified of the cervical internal carotid arteries. Segments of vertebral arteries are also not accurately evaluated due to signal loss from plane of blood flow on this noncontrast exam and also due to motion. Impression: 1. Exam is degraded by motion. No significant stenosis is identified of the cervical internal carotid arteries. There is medial deviation of the carotid arteries in the neck bilaterally greater on the right into the retropharyngeal region. Echocardiogram: LEFT VENTRICLE The left ventricle is normal size. There is normal left ventricular wall thickness. The left ventricular systolic function is normal. The Ejection Fraction is 55-60%. There is normal LV segmental wall motion. Transmitral Doppler flow pattern is Grade I-abnormal relaxation pattern. RIGHT VENTRICLE The right ventricle is normal size. The right ventricular systolic function is normal. ATRIA The left atrium size is normal. The right atrium size is normal. The interatrial septum is intact with no evidence for an atrial septal defect or patent foramen ovale as noted on 2-D or Doppler imaging. AORTIC VALVE The aortic valve is mildly thickened but opens well. Doppler and Color Flow revealed no significant aortic regurgitation. There is no significant aortic valvular stenosis. MITRAL VALVE The mitral valve is calcified but opens well. There is no evidence of mitral valve prolapse. There is no mitral valve stenosis. Doppler and Color-flow revealed mild eccentric mitral regurgitation. TRICUSPID VALVE The tricuspid valve is normal in structure and function. Doppler and Color Flow revealed trace to mild tricuspid regurgitation. There is mild pulmonary hypertension. The PA pressure was estimated at 33 mmHg. There is no tricuspid valve stenosis. PULMONIC VALVE The pulmonic valve is not well visualized. Doppler and Color Flow revealed no pulmonic valvular regurgitation. There is no pulmonic valvular stenosis. GREAT VESSELS The aortic root is normal in size. The ascending aorta is not well seen. The IVC is normal in size and collapses >50% with inspiration. PERICARDIAL EFFUSION There is no evidence of significant pericardial effusion. Critical Notification Critical Value: No <Conclusion> The left ventricular systolic function is normal. The Ejection Fraction is 55-60%. There is normal LV segmental wall motion. Transmitral Doppler flow pattern is Grade I-abnormal relaxation pattern. Mild eccentric mitral regurgitation. Trace to mild tricuspid regurgitation. There is mild pulmonary hypertension. The PA pressure was estimated at 33 mmHg. There is no evidence of significant pericardial effusion. JIMENA PETERSEN MD Aug 04, 2019 13:20
== END 2019-08-05 03:10 | disposition home or self-care (01) | DRG 103 ==
LOC: ER 00:31 → 6 SOUTH 03:00
PROVIDERS: ADMIT Internal Medicine; ATTEND Internal Medicine
DX: G43.909 Migraine, unspecified, not intractable, without status migrainosus (principal); J45.909 Unspecified asthma, uncomplicated; I10 Essential (primary) hypertension; F32.9 Major depressive disorder, single episode, unspecified; G89.29 Other chronic pain; K21.9 Gastro-esophageal reflux disease without esophagitis; M79.7 Fibromyalgia; M06.9 Rheumatoid arthritis, unspecified; E11.40 Type 2 diabetes mellitus with diabetic neuropathy, unspecified; F41.9 Anxiety disorder, unspecified; M47.812 Spondylosis without myelopathy or radiculopathy, cervical region; M48.02 Spinal stenosis, cervical region; M47.816 Spondylosis without myelopathy or radiculopathy, lumbar region; E78.5 Hyperlipidemia, unspecified; D51.9 Vitamin B12 deficiency anemia, unspecified; M48.061 Spinal stenosis, lumbar region without neurogenic claudication; K58.9 Irritable bowel syndrome, unspecified; M19.90 Unspecified osteoarthritis, unspecified site; E87.6 Hypokalemia; Z88.5 Allergy status to narcotic agent; Z88.8 Allergy status to other drugs, medicaments and biological substances; Z88.6 Allergy status to analgesic agent; Z88.1 Allergy status to other antibiotic agents; Z91.041 Radiographic dye allergy status; Z90.710 Acquired absence of both cervix and uterus; Z90.49 Acquired absence of other specified parts of digestive tract; Z98.1 Arthrodesis status; Z79.4 Long term (current) use of insulin; Z80.3 Family history of malignant neoplasm of breast; Z80.6 Family history of leukemia; Z82.0 Family history of epilepsy and other diseases of the nervous system; Z82.49 Family history of ischemic heart disease and other diseases of the circulatory system; Z82.62 Family history of osteoporosis; Z83.3 Family history of diabetes mellitus; Z86.61 Personal history of infections of the central nervous system; Z86.010 Personal history of colon polyps; Z86.73 Personal history of transient ischemic attack (TIA), and cerebral infarction without residual deficits
CPT/HCPCS: 36415; 70450; 70544; 70547; 70551; 72125; 80053; 80061; 81001; 82962; 83735; 84443; 84484; 85025; 85610; 85730; 93005; 93306; 96374; J1815; J2405; J3010; J8597; 92610; 97535; 99285-25; G0378

== ENCOUNTER → 2019-12-07 | Outpatient (CLI) | payer MEDICARE ==
[~2019-12-07] MED LIST changes: -CETI10TA22 PO; +CETI10TA24 PO; +MECL12.573 PO; +OMEP40CA45 PO; -OMEP40CA5 PO
--- NOTE | 2019-12-07 17:29 | KCIC ---
Bilateral digital screening mammograms and tomosynthesis Reason for examination: Routine screening. Comparison is made to previous study dated May 18, 2017 Routine CC and MLO digital views obtained. Interpretation was made with the benefit of CAD. The skin and nipples show no abnormalities. No abnormal lymph nodes are seen. The breast parenchyma is scattered fibroglandular elements. (Breast density: Category B.) There are no suspicious masses, suspicious calcifications or architectural distortions. Benign calcifications. There is a small summation density of the right outer posterior breast CC view confirmed on tomosynthesis images as overlapping glandular tissue planes and overlapping vessel. Mild subareolar prominent ductal structures are again demonstrated. At the left subareolar outer breast and subareolar upper outer breast are 2 subcentimeter oval circumscribed masses on tomosynthesis imaging likely present on the prior study but are more conspicuous due to current tomosynthesis imaging or are slightly larger. Similarly at the right retroareolar breast 4 cm from the nipple there is an oval subcentimeter partially circumscribed low-density mass on both mammographic images and tomosynthesis images not apparent on the prior study. Impression: Small masses of both breasts new from the prior studies, perhaps cysts. Further evaluation with bilateral breast ultrasound is advised. BI-RADS Category 0: Incomplete examination. "Our facility is accredited by the [employer] Mammography Program." This patient's information has been entered into a reminder system for the patient to be notified with the results of her examination and a target date for the next mammogram. Electronically signed by: Nick Estes MD (12/07/2019 5:26 PM) [id number]
== END | disposition home or self-care (01) ==
LOC: KCIC MAMMO 13:10
PROVIDERS: ATTEND Internal Medicine
DX: Z12.31 Encounter for screening mammogram for malignant neoplasm of breast (principal); N63.20 Unspecified lump in the left breast, unspecified quadrant; N63.10 Unspecified lump in the right breast, unspecified quadrant; N64.89 Other specified disorders of breast
CPT/HCPCS: 77063; 77067

== ENCOUNTER → 2019-12-15 | Outpatient (CLI) | payer MEDICARE ==
--- NOTE | 2019-12-15 13:35 | KCIC ---
Bilateral breast ultrasound: Reason for examination: Evaluate for nodular densities on screening mammogram. Comparison is made to mammographic exam dated 12/07/2019. Bilateral whole breast ultrasound including evaluation of all 4 quadrants and the retroareolar and axillary regions of both breasts was performed. In the right breast, there is a small 6.9 mm hypoechoic circumscribed lesion at the 10:00 position 1 cm from the nipple which probably represents a complicated cyst. No other cystic or solid nodules are seen. No abnormal appearing lymph nodes are seen in the axilla. In the left breast, there is a small 4.6 mm hypoechoic circumscribed lesion in the retroareolar 3:00 position. There is a 5.3 mm hypoechoic lesion in the 12:00 position 3 cm from the nipple which has a fibrocystic appearance. No other cystic or solid nodules are seen. No abnormal appearing lymph nodes are seen in the axilla. IMPRESSION: Small benign-appearing nodules in the right breast at the 10:00 position and in the left breast at the 3:00 and 12:00 positions. No suspicious lesion seen. Recommend 6 month follow-up with ultrasound. BI-RADS Category 3: Probably Benign. "Our facility is accredited by the [employer] Mammography Program." This patient's information has been entered into a reminder system for the patient to be notified with the results of her examination and a target date for the next mammogram. Electronically signed by: Cleo Baca MD (12/15/2019 1:32 PM) [id number]
== END | disposition home or self-care (01) ==
LOC: KCIC US 12:51
PROVIDERS: ATTEND Internal Medicine
DX: N63.11 Unspecified lump in the right breast, upper outer quadrant (principal); N63.21 Unspecified lump in the left breast, upper outer quadrant; N63.23 Unspecified lump in the left breast, lower outer quadrant
CPT/HCPCS: 76641

== ENCOUNTER → 2020-06-05 | Outpatient (CLI) | payer MEDICARE ==
--- NOTE | 2020-06-05 15:34 | KCIC ---
MRI Lumbar Spine without contrast History: Low back pain, previous lumbar surgeries, lower extremity pain bilaterally. Technique: Multiplanar, multi sequential noncontrast MR imaging was performed of the lumbar spine. Comparison: January 01, 2018 Findings: There is now posterolateral fusion hardware L2-L5, previously only at L4 and L5. There are bilateral pedicle screws attached to vertical rods. Exam does not accurately evaluate integrity of hardware. There is again L4-5 interbody graft. There is advanced degenerative disc disease L1-L2 through L5-S1, progression in the interval L1-L2 through L3-4. There is new mild inferior height loss of L1, associated mild osseous retropulsion inferiorly. There is some associated edema of the inferior L1 vertebral body near the endplate although also new mild superior L2 endplate edema. There is negligible posterior subluxation L1 relative L2 now present, also negligible posterior subluxation L2 relative L3. There is again degree of interbody fusion L5-S1. There is degenerative disc disease of visualized inferior thoracic levels. Conus terminates at L1-2. T10-T11: There is a very shallow posterior bulge/protrusion. There is mild buckling of the ligamentum flavum. There is facet degenerative change. There is mild to moderate left and mild right neural foramina compromise. There is minimal narrowing of the far left lateral recess. T11-T12: There is very shallow posterior protrusion. There is mild buckling of the ligamentum flavum. Spinal canal is not significantly narrowed. Facet degenerative change contributes to mild posterior narrowing of the left neural foramen. T12-L1: Spinal canal and neural foramina are overall adequate. There is minimal buckling of the ligamentum flavum. L1-L2: There is minimal disc osteophyte complex and bulge superimposed on the minimally posteriorly subluxed inferior L1 vertebral body margin. There is mild buckling of the ligamentum flavum. There is increased mild narrowing of the central canal and mild to moderate narrowing of the far lateral recesses bilaterally. There is mild narrowing of the left neural foramen, increased at least moderate narrowing on the right. L2-L3: There is deformity of the thecal sac due to left laminectomy defect. There is minimal disc osteophyte complex. Spinal canal is not significantly narrowed. There is moderate narrowing of the right neural foramen primarily from facet degenerative change, also likely [id number] narrowing on the left. L3-L4: There has been posterior decompression. There is mild buckling of the residual right ligamentum flavum. Spinal canal is not significantly narrowed. There is likely overall mild left and [id number] right neural foramina compromise. L4-L5: Posterior margin of the interbody graft again projects slightly posterior to the plane of the posterior cortical surfaces of the L4 and L5 vertebral bodies as seen previously without significant spinal stenosis. There again has been posterior decompression. There is minimal narrowing of the left neural foramen, right neural foramen overall adequate. L5-S1: Spinal canal and right neural foramen are adequate. There is minimal narrowing of the left neural foramen. Impression: 1. Comparing with the 2018 exam, there is now posterolateral fusion hardware L2-L5, previously at L4 and L5. 2. There is increased mild to moderate narrowing of the far lateral recesses bilaterally at L1-2 and mild narrowing of the central canal at this level. There has been progression of degenerative disc disease L1-L2 through L3-4. There has been development of inferior L1 compression deformity with minimal osseous retropulsion inferiorly. There is some edema of the inferior L1 vertebral body, fracture could be subacute although the L1-2 endplate edema could be also be related to degenerative disc disease. 3. There is lumbar neural foramina compromise as stated greatest on the right at L1-L2 and L3-4 and bilaterally at L2-3. Electronically signed by: Gamaliel Espinoza MD (06/05/2020 3:31 PM) [id number]
== END | disposition home or self-care (01) ==
LOC: KCIC MRI 13:43
PROVIDERS: ATTEND Physical Medicine & Rehabilitation
DX: S33.110A Subluxation of L1/L2 lumbar vertebra, initial encounter (principal); M25.78 Osteophyte, vertebrae; M48.062 Spinal stenosis, lumbar region with neurogenic claudication; X58.XXXA Exposure to other specified factors, initial encounter; Y93.89 Activity, other specified; Y92.89 Other specified places as the place of occurrence of the external cause; Y99.8 Other external cause status
CPT/HCPCS: 72148

== ENCOUNTER → 2020-06-14 | Outpatient (CLI) | payer MEDICARE ==
--- NOTE | 2020-06-14 18:34 | KCIC ---
Bilateral breast ultrasound: Reason for examination: Follow-up nodules. Comparison is made to previous study dated 12/15/2019. Ultrasound examination of the breasts and the axilla bilaterally was performed. In the right breast at the 10:00 position 1 cm from the nipple, there continues to be a small hypoechoic circumscribed nodule measuring 4 mm in greatest dimension which probably represents a complicated cyst and has decreased in size. No other cystic or solid lesions are seen and no abnormal appearing lymph nodes are seen in the right axilla. In the left breast, there continues to be a 3.4 mm hypoechoic circumscribed lesion at the retroareolar 3:00 position. This is shown a decrease in size and probably represents a complicated cyst. There is also a cluster of cysts at the 12:00 position 3 cm from the nipple measuring 4.7 mm in greatest dimension. This has shown a decrease in size. No new cystic or solid lesions are seen. No abnormal appearing lymph nodes are seen in the left axilla. IMPRESSION: Continued presence of benign-appearing nodules bilaterally which are showing interval decrease in size. No suspicious-appearing lesions are seen. Recommend reevaluation in 6 months which can be performed at the time of bilateral mammograms. BI-RADS Category 3: Probably Benign. "Our facility is accredited by the [employer] Mammography Program." This patient's information has been entered into a reminder system for the patient to be notified with the results of her examination and a target date for the next mammogram. Electronically signed by: Cleo Baca MD (06/14/2020 6:31 PM) [id number]
== END | disposition home or self-care (01) ==
LOC: KCIC US 12:52
PROVIDERS: ATTEND Internal Medicine
DX: N60.02 Solitary cyst of left breast (principal)
CPT/HCPCS: 76641

== ENCOUNTER → 2020-06-25 | Outpatient (CLI) | payer MEDICARE ==
--- NOTE | 2020-06-25 15:02 | KCIC ---
EXAM: CT Lumbar Spine without IV contrast INDICATION: Reason: PSEUDOARTHROSIS, PREVIOUS BACK SURGERY / Spl. Instructions: / History: Evaluate for L1 deformity, Rt sciatica. TECHNIQUE: Multi-detector row CT images were obtained through the lumbar spine without the use of IV contrast. Post-processing sagittal and coronal reconstructed images were obtained for interpretation. All CT scans performed at this facility utilize dose optimization techniques as appropriate to the exam, including the following: Automated exposure control and adjustment of the mA and/or KV according to patient size (this includes techniques or standardized protocols for targeted exams where dose is indication/reason for exam). COMPARISON: Abdomen and pelvis CT of 07/19/2018 without IV contrast FINDINGS: The lowest fully formed disc is referred to as the L5-S1 level. ALIGNMENT: Levoscoliosis apex at L2-L3 is present, Arora angle of 13 degrees as measured from the superior endplate of L1 to the inferior endplate of L4. Trace retrolisthesis of L1 on L2 and of L2 on L3. OSSEOUS: Diffuse demineralization. No acute fracture. No permeative osteolysis. Postop changes from posterior decompression involving left L2-L5, with bilateral dunia and pedicle screw construct fusion hardware and interbody graft at L4-L5. There is mild lucency around the bilateral screws at L3 and L4 of the pedicles.. DISC SPACES: Severe and asymmetric degenerative changes are present at multiple levels in the lumbar spine, including on the right at L1-L2 and at L2-L3 and on the left at L3-L4. At these levels, [id number] contact with endplate osteophytic spurring and sclerosis is present. L5-S1 has undergone partial autofusion. The degenerative changes at L1-L2 are most clearly progressed from previous examination with findings suggesting a fracture of the anterior L1-L2 osteophyte that is new from previous exam. FACET JOINTS: Facet joints are fused with bone graft material status post posterior fusion from L2-L3 through L5-S1. Degenerative spondylosis at L1-L2 the facet joints is present.. SPINAL CANAL: Varying degrees of central canal narrowing due to degenerative changes, status post posterior decompression. At L4-L5, interbody graft material shows some evidence of posterior migration into the central canal, resulting in AP central canal narrowing to 10 mm. NEUROFORAMINA: Moderate right L1-L2 foraminal narrowing due to severe disc degenerative change with loss of height, and moderate right L2-L3 foraminal stenosis due to asymmetric disc degenerative change and facet hypertrophy. SOFT TISSUES: No paraspinal hematoma or fluid collection. The IVC is narrow in caliber in the upper abdomen. IMPRESSION: Postop changes in the lumbar spine from previous posterior decompression and fusion as described with multilevel lumbar spinal degenerative spondylosis, including progression in degenerative change at L1-L2 with a fractured osteophyte anteriorly and asymmetrically to the right. Electronically signed by: Tova Montes MD (06/25/2020 2:59 PM) [id number]
== END | disposition home or self-care (01) ==
LOC: KCIC CT 10:13
PROVIDERS: ATTEND Neurological Surgery
DX: M47.816 Spondylosis without myelopathy or radiculopathy, lumbar region (principal); M96.0 Pseudarthrosis after fusion or arthrodesis; M25.78 Osteophyte, vertebrae
CPT/HCPCS: 72131

== ENCOUNTER → 2022-04-04 | Outpatient (CLI) | payer MEDICARE ==
[~2022-04-04] MED LIST changes: -CETI10TA24 PO; +CETI10TA74 PO; +CYCL10TA19 PO; -CYCL10TA2 PO; -LISI-338 PO; +LISI5TAB15 PO; -MECL12.573 PO; +MECL12.582 PO; -OMEP40CA45 PO; +OMEP40CA7 PO; +POTA-121 PO; -POTA20TA4 PO; +TIZA-75 PO; -TIZA4TAB2 PO
--- NOTE | 2022-04-04 15:18 | KCIC ---
EXAM: Brain MRI without contrast. HISTORY: Migraines. Vertigo. TECHNIQUE: Multiplanar, multisequence magnetic resonance imaging of the brain was performed without c ontrast. COMPARISON: 08/03/2019 FINDINGS: There is no restricted diffusion to suggest acute or subacute infarction. There is no susce ptibility effect to suggest hemorrhage. There is no mass effect or midline shift. There is no hydroce phalus. There are few scattered foci of signal change within the cerebral white matter, likely due to chronic small vessel disease with a history of chronic migraine headaches. There is evidence of lens surgery. There is mild paranasal sinus mucosal thickening. There is evidenc e of maxillary antrostomy/uncinectomy surgery. There is minimal left mastoid fluid. There are normal flow voids within the cerebral vessels. There is no suspicious calvarial lesion. There is postoperati ve change involving the cervical spine, partially included on the [id number] and not formally asse ssed on this exam. There is mild anterolisthesis at the upper cervical levels. IMPRESSION: 1. No acute intracranial finding. 2. Few tiny foci of signal change within the cerebral white matter, likely due to chronic small vesse l disease or chronic migraine headaches given the patient history. Electronically signed by: Felecia Michel MD (04/04/2022 3:15 PM) [id number]
== END ==
LOC: KCIC MRI 13:39
PROVIDERS: ATTEND Psychiatry & Neurology Neurology with Special Qualifications in Child Neurology
DX: G43.009 Migraine without aura, not intractable, without status migrainosus (principal); R42 Dizziness and giddiness
CPT/HCPCS: 70551